=== PATIENT | female | born 1965 | race Caucasian/White ===

== ENCOUNTER → 2017-10-17 18:02 | Outpatient (REF) | payer MEDICARE, MEDICAID, SELFPAY ==
[2017-10-17 18:45] LABS: Basophils # 0.1 K/mm3 (0-0.2); Basophils % 0.8 % (0.1-2.0); Eosinophils # 0.2 K/mm3 (0.0-0.4); Eosinophils % 2.6 % (0.1-12.0); Hematocrit 42.1 % (37.0-47.0); Hemoglobin 13.4 g/dL (12.2-16.2); Lymphocytes # 2.4 K/mm3 (0.7-4.5); Lymphocytes % 28.3 K/mm3 (10-50); Mean Corpuscular HGB Conc 31.9 g/dL (31.8-35.4); Mean Corpuscular Hemoglobin 30.1 pg (27.0-31.2); Mean Corpuscular Volume 94.2 fl (81-99); Mean Platelet Volume 7.6 fl (7.4-10.4); Monocytes # 0.5 K/mm3 (0.1-1.0); Monocytes % 5.5 % (1.7-9.3); Neutrophils # 5.2 K/mm3 (1.8-7.8); Neutrophils % 62.8 % (37.0-80.0); Platelet Count 314 K/mm3 (142-424); Red Blood Count 4.47 M/mm3 (4.20-5.40); Red Cell Distribution Width 13.3 % (11.5-17.5); White Blood Count 8.3 K/mm3 (4.8-10.8)
[2017-10-17 19:08] LABS: Alanine Aminotransferase 45 U/L (12-78); Albumin Level 4.2 gm/dL (3.4-5.0); Albumin/Globulin Ratio 1.2 (1.1-1.8); Alkaline Phosphatase 106 U/L (46-116); Anion Gap 13.2 mEq/L (5-15); Aspartate Amino Transferase 21 U/L (15-37); Bilirubin,Total 0.5 mg/dL (0.2-1.0); Blood Urea Nitrogen 13 mg/dL (7-18); Calcium 9.2 mg/dL (8.5-10.1); Carbon Dioxide 27 mmol/L (21.0-32.0); Chloride 104 mmol/L (98-107); Chol/HDL Ratio 3.9 (1-3.5); Cholesterol 228 mg/dL (140-200); Creatinine,Serum 1.16 mg/dL (0.55-1.02); Estimated Glomerular Filt Rate 49 ml/min (>60); GFR (African American) 59 ML/MIN (>60); Globulin 3.4 gm/dl (1.3-3.2); Glucose 93 mg/dL (74-106); HDL Cholesterol 59 mg/dL (29-89); LDL Cholesterol 138 mg/dL (0-130); Potassium 4.2 mmoL/L (3.5-5.1); Sodium 140 mmol/L (136-145); Thyroid Stimulating Hormone 2.13 uIU/ml (0.358-3.740); Total Protein,Serum 7.6 gm/dL (6.4-8.2); Triglycerides 154 mg/dL (30-200); VLDL Cholesterol 31 mg/dL (0-40)
[2017-10-17 19:29] LABS: T4 (Thyroxine) 6.9 ug/dl (4.7-13.3)
[2017-10-19 17:10] LABS: Lithium (Eskalith(R)) 0.7 mmol/L (0.6-1.2); Vitamin B12 335 pg/mL (232-1245)
[2017-10-22 06:34] LABS: Vitamin D 25 Hydroxy 11.5 ng/mL (30.0-100.0)
== END ==
LOC: LAB 18:02
PROVIDERS: Visit Provider Nurse Practitioner Family
DX: R53.83 Other fatigue (principal); E66.9 Obesity, unspecified; F32.9 Major depressive disorder, single episode, unspecified
CPT/HCPCS: 80053; 80061; 80178; 82607; 82652; 84436; 84443; 85025

== ENCOUNTER → 2017-10-30 14:06 | Outpatient (CLI) | payer MEDICARE, MEDICAID, SELFPAY ==
--- NOTE | 2017-10-30 14:17 | XR_ITS ---
XR knee LT 4V HISTORY: ITS.REASON: knee pain ORDERING PHYSICIAN: Santa Child PATIENT AGE: 52 years COMPARISON: None FINDINGS: No fracture or dislocation. No lytic or blastic change. Normal mineralization. There are mild osteoarthritic changes involving the medial compartment and patellofemoral joint with slight decrease in the joint space and small osteophyte formation. Minimal osteoarthritic changes involve the lateral compartment. IMPRESSION: Mild osteoarthritis of the left knee
--- NOTE | 2017-10-30 14:17 | CT_ITS ---
CT head/brain wo con HISTORY: Dizziness and memory loss ORDERING PHYSICIAN: Santa Child PATIENT AGE: 52 years COMPARISON: 07/29/2008 TECHNIQUE: Axial images obtained without contrast. Brain and bone windows reviewed. FINDINGS: No midline shift, mass effect, intracranial hemorrhage, hydrocephalus, or extra-axial fluid collection is evident. The calvarium has an unremarkable appearance. No mastoid effusion. No sinus air-fluid levels.. IMPRESSION: Negative CT head without contrast. No acute finding.
== END ==
PROVIDERS: Family Provider Emergency Medicine; PCP Nurse Practitioner Family; Visit Provider Nurse Practitioner Family
DX: R42 Dizziness and giddiness (principal); M25.562 Pain in left knee
CPT/HCPCS: 70450; 73564

== ENCOUNTER 2018-02-23 07:12 | Emergency (ER) | payer MEDICARE, MEDICAID, SELFPAY ==
[2018-02-23 07:18] VITALS: BP 151/97; PULSE 95; RESP 20; TEMP 37.1; O2SAT 95; BMI 51.1
[2018-02-23 07:38] LABS: Microscopic, Urine URINE MICROSCOPIC (MICROSCOPIC)
--- NOTE | 2018-02-23 07:38 | HMH.EDABDPAI ---
ED Disposition Condition on Discharge: Fair Time of Disposition: 07:57 - Critical Care Critical Care Time: No <Myles Ro - Last Filed: 02/23/18 07:53> Condition on Discharge: Fair - Critical Care Critical Care Time: No <Dwight Sosa - Last Filed: 02/23/18 10:01> Clinical Impression: Constipation, Peptic ulcer disease, Obesity, Enteritis Abdominal pain Qualifiers: Abdominal location: right upper quadrant Qualified Code(s): R10.11 - Right upper quadrant pain Nausea and vomiting Qualifiers: Vomiting type: unspecified Vomiting Intractability: non-intractable Qualified Code(s): R11.2 - Nausea with vomiting, unspecified Disposition: Home, Self-Care Instructions: DI for Abdominal Pain-Adult Additional Instructions: 1- start medicating for PUD and and hold constipating medications for two days 2- BRAt diet and plenty of gotrate. 3- to be seen by your pcp Dr Starkey after leaving the ED for evaluating and possible GI referral for EGD. 4-to return for any new symptoms of weakness dizziness vomiting blood black stool or worse pain. Prescriptions: Ondansetron [Zofran 4mg ODT] 4 mg PO Q8HP PRN #6 tab.rapdis PRN Reason: Nausea Bisacodyl [Dulcolax 5mg Tablet] 10 mg PO BID #14 tablet. Dicyclomine HCl [Bentyl 10mg capsule] 10 mg PO Q8H #20 cap metroNIDAZOLE [Flagyl] 500 mg PO Q8 #21 tab raNITIdine HCl [Zantac] 150 mg PO BID #30 tab Referrals: Santa Child APRN [Primary Care Provider] - George Sow MD [Staff Physician] - Attestation: On 02/23/18, the high probability of a clinically significant, sudden or life threatening deterioration of the following system(s) required my full and direct attention, intervention and personal management. The time I documented below is in addition to time spent performing reported procedures but includes the following listed in this critical care notation. Medical Decision Making - Medical Records Medical records reviewed: Yes: I reviewed the patient's medical records. - Bowen Inquiry Pt receiving controlled substance: No - Lab Data Result diagrams: 02/23/18 07:25 02/23/18 07:25 - Physician Consults Physician Consulted: Dr Sosa Time: 08:01 Reason -: Admission, Pt condition Comment/Response: Care transferred to Dr. Sosa, pending results. - Reevaluation(s) Time: 07:45 <Myles Ro - Last Filed: 02/23/18 07:53> - Bowen Inquiry Pt receiving controlled substance: Yes Bowen was queried for this patient: No Risks and benefits of using a controlled substance: were not discussed with pt by me - Lab Data Result diagrams: 02/23/18 07:25 02/23/18 07:25 - Radiology Data #1 Image(s): Chest, Abdomen Image Reviewed: Yes I reviewed the patient's radiology image, Yes I discussed the image results w/the radiologist Preliminary Findings: Abnormal - US Data US Images: Abdomen ED US Reviewed: Yes: I have viewed radiologist's interpretation <Dwight Sosa - Last Filed: 02/23/18 10:01> Vital Signs: 02/23/18 07:18 Temperature 98.7 F Temperature Source Oral Pulse Rate [Left Radial] 95 H Respiratory Rate 20 Blood Pressure [Right Arm] 151/97 Blood Pressure Mean [Right Arm] 115 Blood Pressure Source [Right Arm] Automatic Cuff Blood Pressure Position [Right Arm] Sitting 02 Sat by Pulse Oximetry 95 Oxygen Delivery Method Room Air - Lab Data Lab Results 02/23/18 07:25: WBC 13.0 H, RBC 4.34, Hgb 14.1, Hct 39.3, MCV 90.5, MCH 32.5 H, MCHC 35.9 H, RDW 13.3, Plt Count 335, MPV 7.0 L, Neut % (Auto) 77.2, Lymph % (Auto) 17.3, [place] % (Auto) 3.5, Eos % (Auto) 1.6, Baso % (Auto) 0.4, Neut # (Auto) 10.0 H, Lymph # (Auto) 2.3, [place] # (Auto) 0.5, Eos # (Auto) 0.2, Baso # (Auto) 0.1 02/23/18 07:25: Sodium 138, Potassium 4.6, Chloride 104, Carbon Dioxide 25, Anion Gap 13.6, BUN 12, Creatinine 1.06 H, Estimated Creat Clear 54, Estimated GFR 54 L, Est GFR ( Amer) 66, Glucose 137 H, Calcium 9.2, Total Bilirubin 0.5, Direct Bilirubin
[2018-02-23 07:40] LABS: Basophils # 0.1 K/mm3 (0-0.2); Basophils % 0.4 % (0.1-2.0); Eosinophils # 0.2 K/mm3 (0.0-0.4); Eosinophils % 1.6 % (0.1-12.0); Hematocrit 39.3 % (37.0-47.0); Hemoglobin 14.1 g/dL (12.2-16.2); Lymphocytes # 2.3 K/mm3 (0.7-4.5); Lymphocytes % 17.3 K/mm3 (10-50); Mean Corpuscular HGB Conc 35.9 g/dL (31.8-35.4); Mean Corpuscular Hemoglobin 32.5 pg (27.0-31.2); Mean Corpuscular Volume 90.5 fl (81-99); Monocytes # 0.5 K/mm3 (0.1-1.0); Monocytes % 3.5 % (1.7-9.3); Neutrophils % 77.2 % (37.0-80.0); Platelet Count 335 K/mm3 (142-424); Red Blood Count 4.34 M/mm3 (4.20-5.40); Red Cell Distribution Width 13.3 % (11.5-17.5)
[2018-02-23 07:42] LABS: Appearance,Urine CLOUDY (Clear); Bilirubin,Urine Negative (Negative); Blood, Urine Negative (Negative); Color,Urine YELLOW (Yellow); Glucose,Urine (UA) Negative (Negative); Ketones,Urine Negative (Negative); Leukocyte Esterase,Urine Negative (Negative); Nitrate,Urine Negative (Negative); Protein,Urine Negative (Negative); Specific Gravity, Urine >= 1.030 (1.005-1.030)
[2018-02-23 07:49] LABS: Alanine Aminotransferase 29 U/L (12-78); Albumin Level 3.7 gm/dL (3.4-5.0); Albumin/Globulin Ratio 0.9 (1.1-1.8); Alkaline Phosphatase 125 U/L (46-116); Amylase 67 U/L (25-125); Anion Gap 13.6 mEq/L (5-15); Aspartate Amino Transferase 19 U/L (15-37); Bilirubin,Direct 0.1 mg/dL (0.0-0.2); Bilirubin,Indirect 0.4 mg/dL (0.0-0.9); Bilirubin,Total 0.5 mg/dL (0.2-1.0); Blood Urea Nitrogen 12 mg/dL (7-18); Calcium 9.2 mg/dL (8.5-10.1); Carbon Dioxide 25 mmol/L (21.0-32.0); Chloride 104 mmol/L (98-107); Creatinine Clearance Estimated 54 mL/min (0-300); Creatinine,Serum 1.06 mg/dL (0.55-1.02); Estimated Glomerular Filt Rate 54 ml/min (>60); GFR (African American) 66 ML/MIN (>60); Globulin 4.2 gm/dl (1.3-3.2); Glucose 137 mg/dL (74-106); Potassium 4.6 mmoL/L (3.5-5.1); Sodium 138 mmol/L (136-145); Total Protein,Serum 7.9 gm/dL (6.4-8.2)
--- NOTE | 2018-02-23 07:52 | US_ITS ---
US abdomen complete Ordering Physician: Myles Ro MD Patient Age: 52 years: Female HISTORY: ITS.REASON: Abd pain right upper quadrant pain. Previous cholecystectomy. TECHNIQUE: Ultrasound right upper quadrant COMPARISON :Plain films from today . Previous ultrasound right upper quadrant January [address] abdomen March 2017 FINDINGS difficult exam due the patient's large size Pancreas. Not well visualized technologist question of some mild fullness and slight diffuse increased echogenicity throughout the pancreas be. These features most likely reflecting fatty changes of pancreas.. However warrants correlation with amylase and lipase... Liver. Diffuse fatty changes have progressed since 2016 no focal lesion.. No ductal dilatation. Common duct was not specifically identified but is not dilated Gallbladder surgically removed Right kidney. 10.8 cm length. No hydronephrosis nor mass. IMPRESSION: Gallbladder is surgically removed Pancreas not well seen but slight generous size throughout most likely reflecting fatty change. No fluid collections or focal lesions May benefit from correlation with amylase and lipase Progressive diffuse fatty changes of liver 2015.. Hepatic steatosis. No focal lesions. No bili ductal dilatation. No ascites. Right kidney unremarkable
[2018-02-23 08:06] LABS: Lipase 125 u/L (73-393)
[2018-02-23 08:11] LABS: Bacteria,Urine 3+ /lpf; Mucus,Urine 2+ /lpf
--- NOTE | 2018-02-23 08:58 | XR_ITS ---
XR acute abdomen series Ordering Physician: Myles Ro MD Patient Age: 52 years: Female HISTORY: ITS.REASON: NV and upper abdominal pain, ct scan was broke. TECHNIQUE: Flat and upright abdomen with upright chest COMPARISON :Previous CT abdomen 03/23/2017 FINDINGS Upright Chest:. Lungs clear no active disease less than optimal inspiration with mild atelectasis likely at the medial left base.Heart normal size. Pulmonary Vascular the upper normal at chest . No pleural effusions. No free air beneath the diaphragm. Chest wall unremarkable. Flat and upright views of abdomen. There are scattered air-fluid levels throughout the right abdomen. With reviewing bowel distribution from the previous CT abdomen studies however these may reflect large bowel air-fluid levels within the right colon, hepatic flexure and proximal transverse colon. No significant large bowel dilatation. There may be a few small air-fluid levels with upper normal caliber. Upper normal wall thickness at the distal small bowel. There is solid stool seen distending the distal transverse colon to left of midline moderate stool and gas at the splenic flexure and descending colon. Minimal stool at rectum.. Minimal stool rectum. Findings a nonspecific at this point. Understand from ER Dr. symptoms have improved while in the ER. Appearance may reflect a developing enteritis with possible right colitis- and may reflect impending diarrhea... However if symptoms progress a would recommend a CT to better exclude any early obstruction at mid to distal transverse colon region. The patient has postsurgical changes at midline near the umbilicus with some scarring and thickening about the anterior abdominal wall in this region.. Note mild of scarring at the anterior abdominal wallOn prior CT Previous hysterectomy and cholecystectomy history noted. IMPRESSION: 1. Air-fluid levels are seen throughout the right colon & distal small bowel. No large bowel dilatation. Distal small bowel with borderline dilatation & borderline mild mild wall thickening. 2. In contrast there is generous stool at the left colon Generous stool transverse colon and hepatic flexure;, moderate stool & gas at descending colon.Minimal stool rectum 3. Findings may reflect developing enteritis depending diarrhea. At this point I cannot exclude a early partial bowel obstruction obstruction at mid transverse colon. If Symptoms progress follow-up CT abdomen recommended
[2018-02-23 09:17] LABS: Troponin I < 0.02 ng/ml (0.00-0.06)
[2018-02-23 10:15] VITALS: BP 158/83; PULSE 83; RESP 16; TEMP 36.9; O2SAT 95
== END 2018-02-23 10:16 | disposition home or self-care (01) ==
PROVIDERS: Emergency Medicine; Emergency Provider Emergency Medicine; Family Provider Emergency Medicine; PCP Nurse Practitioner Family
DX: R10.11 Right upper quadrant pain (principal); K27.9 Peptic ulcer, site unspecified, unspecified as acute or chronic, without hemorrhage or perforation; K59.00 Constipation, unspecified; F41.8 Other specified anxiety disorders; I10 Essential (primary) hypertension
CPT/HCPCS: 74021; 76700; 80053; 80076; 81001; 82150; 83690; 84484; 85025; 87086; 93005; 96365; 96375; 99283; J2405

== ENCOUNTER → 2018-03-23 14:05 | Outpatient (POV) | payer MEDICARE, MEDICAID, SELFPAY | PROVIDERS: Visit Provider Nurse Practitioner Acute Care | DX: Z00.00 Encounter for general adult medical examination without abnormal findings (principal) ==

== ENCOUNTER → 2018-04-03 06:24 | Outpatient (CLI) | payer MEDICARE, MEDICAID, SELFPAY ==
--- NOTE | 2018-04-03 06:27 | NM_ITS ---
History and Indications: Hyperlipidemia, chest, shortness of breath, palpitations and fatigue Procedure: Patient received a 0.4 mg of Lexiscan, resting heart rate was 73 bpm resting blood pressure 128/78, with Lexiscan maximum heart rate achieved was 99 bpm is less than 85% of the maximum] heart rate and a blood pressure 97/42. With Lexiscan patient complained of shortness of breath and nausea. Electrocardiogram: Resting electrocardiogram showed sinus rhythm, with Lexiscan there is less than 1.[address] segment depression noted from the baseline EKG. The EKG portion of the Lexiscan Myoview is nondiagnostic. Cardiac stress and resting SPECT images: Cardiac stress and rest SPECT images were obtained using technetium 99 Myoview 31.2 mCi at stress and 10.4 mCi at rest. Gated SPECT further analysis wall motion and calculation of the ejection fraction also done. Cardiac stress and rest images show a fixed defect in the inferior wall with normal contractility in the gated SPECT is likely secondary to soft tissue attenuation no reversible ischemia seen. Computer derived ejection fraction is 62% with no obvious regional wall motion abnormality, right ventricle is normal size and contractility. Conclusion: 1. The EKG portion of the Lexiscan Myoview is nondiagnostic. 2. No obvious scintigraphic evidence of reversible ischemia seen, computer derived ejection fraction is 62% with no obvious regional wall motion abnormality. Right ventricle is normal size and contractility. 3. Normal Lexiscan Myoview study.
--- NOTE | 2018-04-03 06:27 | CT_ITS ---
CT heart w calcium score INDICATION: ITS.REASON: dyspnea, DM, Obese, Chest pain, GERD ORDERING PHYSICIAN: Jose Prado MD PATIENT AGE: 52 years COMPARISON: None TECHNIQUE: Axial images are obtained without contrast. Sagittal and coronal reformatted images are reviewed as well. All CT scans at the facility use one or more dose reduction, viz: automated exposure control, ma/kV adjustment per patient size (including targeted exams where dose is matched to indication, i.e. head), or iterative reconstruction technique. FINDINGS: The coronary artery calcium score is 1 indicating minimal plaque burden and low cardiovascular disease risk IMPRESSION: Coronary artery calcium score 1 with low cardiovascular disease risk
--- NOTE | 2018-04-03 06:27 | CA_ITS ---
PROCEDURE: 2-D M-mode and color Doppler study INDICATIONS FOR THE TEST: Chest pain+ COPD Heart Murmur Tobacco Smoking Palpitations+ Fatigue+ Syncope Edema+ Hypertension Diabetes Mellitus Rheumatic Fever SOB+GIL+Obesity Hyperlipidemia+ Family History HD Additional History pre-op clearance, dizziness, MOSES, GERD, near syncope PATIENT INFORMATION HEIGHT: 64 WEIGHT: 318 GENDER: Female B/P: 136/95 2-D/M-MODE INTERPRETATION: 2-D MEASUREMENTS OBSERVED VALUES IN CMS Right Ventricular Dimension (RVDd) 2.2 Interventricular Septum (Thickness)(IVsd) 0.8 Left Ventricular Internal Dimensions(LVIDd) 5.1 Left Ventricular Posterior Wall (Thickness)(LVPWd) 0.8 Aortic Root 2.3 Aortic Cusp Separation 2.0 Left Atrial Dimensions (LAD) 3.9 2D 1. Left atrium is qualitatively mildly enlarged, left ventricle is normal size, there is preserved left ventricular systolic function, visually estimated ejection fraction 55% with no obvious regional wall motion abnormality. 2. The right atrium and right ventricle are normal size and contractility. 3. The aortic valve is minimally thickened and fibrosed. 4. The mitral and tricuspid valves are grossly normal. 5. The pulmonic valve is poorly visualized. 6. No significant pericardial effusion noted. DOPPLER INTERROGATION: Doppler interrogation of the aortic, mitral and tricuspid valve reveals presence of mild mitral and tricuspid regurgitation, tricuspid and jet velocity insufficient for calculation of the right ventricular systolic pressure, grade 1 diastolic dysfunction seen without tissue Doppler evidence of raised left atrial pressure. CONCLUSION: 1. Mildly enlarged left atrium, normal left ventricular size, visually estimated ejection fraction 55% with no obvious regional wall motion abnormality, grade 1 diastolic dysfunction seen without tissue Doppler evidence of raised left atrial pressure. 2. Mild mitral and tricuspid regurgitation 3. No significant pericardial effusion noted.
--- NOTE | 2018-04-03 09:07 | HMH.ITSHM ---
lithium buspirone linzess venlafine depacote latida atorvastatin
== END ==
PROVIDERS: Family Provider Emergency Medicine; PCP Emergency Medicine; Visit Provider Internal Medicine Cardiovascular Disease
DX: R06.09 Other forms of dyspnea (principal); R94.31 Abnormal electrocardiogram [ECG] [EKG]; E78.5 Hyperlipidemia, unspecified
CPT/HCPCS: 75571; 78452; 93017; 93306; A9502; J2785; Q9966

== ENCOUNTER → 2018-05-25 12:22 | Outpatient (POV) | payer MEDICARE, MEDICAID, SELFPAY | PROVIDERS: Family Provider Emergency Medicine; PCP Emergency Medicine; Visit Provider Nurse Practitioner Acute Care | DX: Z00.00 Encounter for general adult medical examination without abnormal findings (principal) ==

== ENCOUNTER → 2019-02-05 09:24 | Outpatient (CLI) | payer MEDICARE, MEDICAID, SELFPAY ==
[2019-02-05 10:41] LABS: Basophils # 0.1 K/mm3 (0-0.2); Basophils % 0.7 % (0.1-2.0); Eosinophils # 0.3 K/mm3 (0.0-0.4); Eosinophils % 4.6 % (0.1-12.0); Hematocrit 36.1 % (37.0-47.0); Hemoglobin 11.5 g/dL (12.2-16.2); Lymphocytes # 2.1 K/mm3 (0.7-4.5); Lymphocytes % 33.9 % (10-50); Mean Corpuscular HGB Conc 31.7 g/dL (31.8-35.4); Mean Corpuscular Hemoglobin 28.4 pg (27.0-31.2); Mean Corpuscular Volume 89.7 fl (81-99); Mean Platelet Volume 6.8 fl (7.4-10.4); Monocytes # 0.5 K/mm3 (0.1-1.0); Monocytes % 8.1 % (1.7-9.3); Neutrophils # 3.3 K/mm3 (1.8-7.8); Neutrophils % 52.6 % (37.0-80.0); Platelet Count 301 K/mm3 (142-424); Red Blood Count 4.03 M/mm3 (4.20-5.40); Red Cell Distribution Width 13.1 % (11.5-17.5); White Blood Count 6.3 K/mm3 (4.8-10.8)
[2019-02-05 12:43] LABS: Alanine Aminotransferase 32 U/L (12-78); Albumin Level 3.5 gm/dL (3.4-5.0); Albumin/Globulin Ratio 1.1 (1.1-1.8); Alkaline Phosphatase 91 U/L (46-116); Anion Gap 14.6 mEq/L (5-15); Aspartate Amino Transferase 20 U/L (15-37); Bilirubin,Total 0.4 mg/dL (0.2-1.0); Blood Urea Nitrogen 14 mg/dL (7-18); Calcium 9.2 mg/dL (8.5-10.1); Carbon Dioxide 26 mmol/L (21.0-32.0); Chloride 108 mmol/L (98-107); Chol/HDL Ratio 4.7 (1-3.5); Cholesterol 211 mg/dL (140-200); Creatinine,Serum 1.01 mg/dL (0.55-1.02); Estimated Glomerular Filt Rate 57 ml/min (>60); GFR (African American) 69 ML/MIN (>60); Globulin 3.1 gm/dl (1.3-3.2); Glucose 86 mg/dL (74-106); HDL Cholesterol 45 mg/dL (29-89); LDL Cholesterol 140 mg/dL (0-130); Potassium 4.6 mmoL/L (3.5-5.1); Sodium 144 mmol/L (136-145); T4 (Thyroxine) 4.8 ug/dl (4.7-13.3); Thyroid Stimulating Hormone 2.69 uIU/ml (0.358-3.740); Total Protein,Serum 6.6 gm/dL (6.4-8.2); Triglycerides 130 mg/dL (30-200); VLDL Cholesterol 26 mg/dL (0-40)
[2019-02-06 20:51] LABS: Vitamin D 25 Hydroxy 14.5 ng/mL (30.0-100.0)
[2019-02-09 19:54] LABS: H. pylori Breath Test Positive (Negative)
== END ==
PROVIDERS: Visit Provider Nurse Practitioner Family
DX: R23.4 Changes in skin texture (principal); E66.01 Morbid (severe) obesity due to excess calories; Z68.43 Body mass index [BMI] 50.0-59.9, adult; E66.9 Obesity, unspecified; K21.9 Gastro-esophageal reflux disease without esophagitis; L85.3 Xerosis cutis; E55.9 Vitamin D deficiency, unspecified
CPT/HCPCS: 36415; 80053; 80061; 82652; 83013; 84436; 84443; 85025

== ENCOUNTER → 2019-03-11 14:50 | Outpatient (CLI) | payer MEDICARE, MEDICAID, SELFPAY ==
--- NOTE | 2019-03-11 14:52 | MM_ITS ---
MM Dig screening mamm BI w/CAD CAD Screening COMPARISON: Digital mammograms with CAD 02/17/2017 INDICATION: There is a history of breast cancer patient's sister diagnosed at age 48 TECHNIQUE: Standard CC and MLO images were obtained. R2 CAD reviewed. FINDINGS: The breasts are composed primarily of fat with minimal scattered fiber glandular densities in each breast. There is an asymmetric density upper outer quadrant right breast which was seen previously but shows possibly slight interval increase in size. Recommend patient return for spot compression views and ultrasound for better evaluation. There is a benign-appearing calcification left breast. There are additional tiny benign-appearing nodular densities in each breast. There are no suspicious microcalcifications. IMPRESSION: Fibrofatty parenchyma with possible interval change in nodular density right breast BI-RADS Category: 0 Need Additional Imaging Evaluation RECOMMENDED FOLLOW-UP: IMM - IMMEDIATE FOLLOW-UP RECOMMENDED (A letter has been sent to the patient regarding results of the study.)
== END ==
PROVIDERS: PCP Emergency Medicine; Visit Provider Nurse Practitioner Family
DX: Z12.31 Encounter for screening mammogram for malignant neoplasm of breast (principal)
CPT/HCPCS: 77067

== ENCOUNTER → 2019-04-01 13:29 | Outpatient (CLI) | payer MEDICARE, MEDICAID, SELFPAY ==
--- NOTE | 2019-04-01 13:36 | MM_ITS ---
MM Dig mamm DX unilat RT CAD Right breast ultrasound complete with axilla INDICATION: Follow-up abnormal mammogram ORDERING PHYSICIAN: KIET Bedolla PATIENT AGE: 53 years COMPARISON: 03/11/2019, 02/17/2017, 06/03/2011 TECHNIQUE: Spot compression views and right ML view along with right breast ultrasound FINDINGS: There is a well-circumscribed oval nodule in the upper outer aspect of the right breast at approximately the 10:00 position. This measures 7 mm. The margins are well-circumscribed. This has a benign appearance. Spot compression views also demonstrate an additional benign-appearing nodule in the central aspect of the right breast that measures 5 mm. Right breast ultrasound ultrasound performed of the right breast fails to demonstrate the mammographic nodule of concern. There is a 4 mm x 5 mm subcutaneous area of increase echogenicity in the 10:00 region of the right breast. It is doubtful that this represents the area of mammographic concern. No suspicious nodules are evident. IMPRESSION: Right breast nodule at 10:00 has benign appearance. The nodule however has increased in size compared to 02/17/2017. With therefore, recommend a 6 month mammographic and sonographic follow-up. There may be a small lipoma in the 10:00 region of the right breast seen on ultrasound. BI-RADS Category: 3 Probably Benign Finding Short Term Follow-up RECOMMENDED FOLLOW-UP: 6M - 6 MONTH FOLLOW-UP (A letter has been sent to the patient regarding results of the study.)
== END ==
PROVIDERS: PCP Emergency Medicine; Visit Provider Physician Assistant
DX: R92.8 Other abnormal and inconclusive findings on diagnostic imaging of breast (principal)
CPT/HCPCS: 76641; 77065

== ENCOUNTER → 2019-09-21 12:26 | Outpatient (CLI) | payer MEDICARE, MEDICAID, SELFPAY ==
--- NOTE | 2019-09-21 12:34 | XR_ITS ---
PROCEDURE: XR FOOT WT BEARING RT 3V CLINICAL INDICATION: foot pain COMPARISON: No exams were available for comparison FINDINGS: No fracture or dislocation. No lytic or blastic change. There is normal mineralization. There is mild osteoarthritis at the 1st metatarsophalangeal joint. Degenerative dorsal posterior and plantar calcaneal spurring is noted. Other findings:None. IMPRESSION: No acute findings. Dictated by: Triston Boudreaux 09/21/2019 13:12 Electronically signed by Triston Boudreaux in [facility] 09/21/2019 13:12
--- NOTE | 2019-09-21 12:34 | XR_ITS ---
PROCEDURE: XR ANKLE WT BEARING LT MIN 3V CLINICAL INDICATION: foot pain COMPARISON: No exams were available for comparison FINDINGS: There is no acute fracture dislocation or destructive bony lesion. Ankle mortise is intact. Calcifications in the soft tissues inferior to the malleoli are likely accessory ossicles. Degenerative dorsal posterior and plantar calcaneal spurring is noted. IMPRESSION: No acute findings. Dictated by: Triston Boudreaux 09/21/2019 13:07 Electronically signed by Triston Boudreaux in [facility] 09/21/2019 13:07
--- NOTE | 2019-09-21 12:34 | XR_ITS ---
PROCEDURE: XR ANKLE WT BEARING RT MIN 3V CLINICAL INDICATION: foot pain COMPARISON: No exams were available for comparison FINDINGS: There is no acute fracture dislocation or destructive lesion. Ankle mortise is intact. Degenerative dorsal posterior and plantar calcaneal spurring is noted. IMPRESSION: No acute findings. Dictated by: Triston Boudreaux 09/21/2019 13:08 Electronically signed by Triston Boudreaux in [facility] 09/21/2019 13:08
--- NOTE | 2019-09-21 12:34 | XR_ITS ---
PROCEDURE: XR FOOT WT BEARING LT 3V CLINICAL INDICATION: foot pain COMPARISON: No exams were available for comparison FINDINGS: No fracture or dislocation. No lytic or blastic change. There is normal mineralization. There is mild osteoarthritis at the 1st metatarsophalangeal joint. Degenerative dorsal posterior and plantar calcaneal spurring is noted. There is some dorsal spurring at the Lisfranc joint. Other findings:None. IMPRESSION: No acute findings. Dictated by: Triston Boudreaux 09/21/2019 13:10 Electronically signed by Triston Boudreaux in [facility] 09/21/2019 13:10
== END ==
PROVIDERS: PCP Emergency Medicine; Visit Provider Podiatrist
DX: M79.671 Pain in right foot (principal); M79.672 Pain in left foot
CPT/HCPCS: 73610; 73630

== ENCOUNTER → 2019-11-10 13:18 | Outpatient (CLI) | payer MEDICARE, MEDICAID, SELFPAY ==
--- NOTE | 2019-11-10 13:18 | MM_ITS ---
PROCEDURE: MM DIG MAMM DX UNILAT RT CAD Digital Breast Tomosynthesis Included CLINICAL INDICATION: 6 mth f/u Six-month follow-up breast nodule COMPARISON: [facility] DIG MAMM-SCREEN LIZZ W/CAD from 02/17/2017 DIG MAMM-SCREEN LIZZ from 03/11/2019 DIG MAMM-DX UNI-RT from 04/01/2019 BREASTRT US breast RT complete from 04/01/2019 US BREAST RT COMPLETE from 11/10/2019 TECHNIQUE: Standard CC and MLO images and 3D Tomosynthesis was obtained. R2 CAD reviewed. Complete right breast ultrasound with axilla FINDINGS: There is a benign-appearing comma shaped 8 x 4 mm nodule in the outer aspect of the right breast at approximately 9 o'clock and may be slightly more prominent compared to the previous study but still has benign features. There is a 5 mm benign-appearing nodule in the central aspect of the right breast not significantly changed. Right breast ultrasound: In the 9 o'clock position there is a hypoechoic nodule measuring 8 x 4 mm with central increased echogenicity consistent with a lymph node corresponding to the mammographic abnormality. A hyperechoic nodules present at 10 o'clock at 5 x 3 mm and may be due to a lipoma IMPRESSION: Benign findings. Recommend resume screening mammogram in 6 months of both breast BI-RAD Category: 2 Benign Finding(s) FOLLOW-UP: 6M 6Month Follow-up (A letter has been sent to the patient regarding results of the study.) No malignant appearing mass or malignant-appearing microcalcification is evident. Dictated by: Martin Hidalgo MD 11/15/2019 10:59 Electronically signed by Martin Hidalgo MD in [facility] 11/15/2019 10:59
== END ==
PROVIDERS: PCP Emergency Medicine; Visit Provider Emergency Medicine
DX: R92.8 Other abnormal and inconclusive findings on diagnostic imaging of breast (principal)
CPT/HCPCS: 76641; 77061; 77065; G0279

== ENCOUNTER 2020-03-01 18:02 | Emergency (ER) | payer MEDICARE, MEDICAID, SELFPAY ==
[2020-03-01 18:02] VITALS: BP 139/63; PULSE 81; RESP 20; O2SAT 94
--- NOTE | 2020-03-01 18:02 | ECG_ITS ---
APPROVED REPORT Exam: Resting ECG HR:89 bpm ECG Measurements Heart Rate 89 AXES NM 136 P 66 QRSd 86 QRS 39 QT 368 T 63 QTc 447 <Conclusion> Normal sinus rhythm Normal ECG Electronically signed by : Mauri Andrade, 03/05/2020 14:00:56
[2020-03-01 18:03] VITALS: BP 139/63; PULSE 89; RESP 20; TEMP 36.8; O2SAT 95; BMI 51.5
--- NOTE | 2020-03-01 18:10 | XR_ITS ---
PROCEDURE: XR CHEST 2V CLINICAL HISTORY: CHEST PAIN COMPARISON: CXR CHEST(2 VIEWS-NOT PORTABLE) from 01/01/2017 CXR CHEST(2 VIEWS-NOT PORTABLE) from 03/23/2017 XR CHEST 2V from 08/11/2019 FINDINGS: The cardiomediastinal silhouette and pulmonary vascularity are within normal limits. The lungs are clear without infiltrates, suspicious nodules, or pleural effusions. No acute bony abnormalities. IMPRESSION: No acute findings. Dictated by: Martin Hidalgo MD 03/02/2020 07:45 Electronically signed by Maritn Hidalgo MD in [facility] 03/02/2020 07:45
[2020-03-01 18:16] LABS: Basophils # 0.1 K/mm3 (0-0.2); Basophils % 0.8 % (0.1-2.0); Eosinophils # 0.4 K/mm3 (0.0-0.4); Eosinophils % 3.7 % (0.1-12.0); Hematocrit 38.9 % (37.0-47.0); Hemoglobin 13.8 g/dL (12.2-16.2); Lymphocytes # 3.1 K/mm3 (0.7-4.5); Lymphocytes % 31.9 % (10-50); Mean Corpuscular HGB Conc 35.5 g/dL (31.8-35.4); Mean Corpuscular Hemoglobin 31.4 pg (27.0-31.2); Mean Corpuscular Volume 88.7 fl (81-99); Monocytes # 0.5 K/mm3 (0.1-1.0); Monocytes % 5.5 % (1.7-9.3); Neutrophils # 5.7 K/mm3 (1.8-7.8); Neutrophils % 58.1 % (37.0-80.0); Platelet Count 310 K/mm3 (142-424); Red Blood Count 4.38 M/mm3 (4.20-5.40); Red Cell Distribution Width 13.5 % (11.5-17.5); White Blood Count 9.7 K/mm3 (4.8-10.8)
[2020-03-01 18:17] LABS: Chloride 107 mmol/L (98-107); Potassium 4.3 mmoL/L (3.5-5.1); Sodium 140 mmol/L (136-145)
[2020-03-01 18:20] LABS: Blood Urea Nitrogen 16 mg/dl (7-17); Creatinine Clearance Estimated 56 mL/min (50-200); Estimated Glomerular Filt Rate 58 ml/min (>60); GFR (African American) 70 ML/MIN (>60)
[2020-03-01 18:21] LABS: Anion Gap 12.3 mEq/L (5-15); Calcium 9.7 mg/dl (8.4-10.2); Carbon Dioxide 25 mmol/L (22.0-30.0); Glucose 101 mg/dl (74-100)
[2020-03-01 18:34] LABS: Troponin I < 0.01 ng/ml (0.00-0.034)
--- NOTE | 2020-03-01 18:37 | HMH.EDCP ---
ED Disposition Clinical Impression: Atypical chest pain Disposition: Home, Self-Care Condition on Discharge: Good Instructions: DI for Atypical Chest Pain Referrals: Provider,Referral, [Primary Care Provider] - - Critical Care Critical Care Time: No Attestation: On 03/01/20, the high probability of a clinically significant, sudden or life threatening deterioration of the following system(s) required my full and direct attention, intervention and personal management. The time I documented below is in addition to time spent performing reported procedures but includes the following listed in this critical care notation. Medical Decision Making - Medical Records Medical records reviewed: Yes: I reviewed the patient's medical records. - Bowen Inquiry Pt receiving controlled substance: No Vital Signs: 03/01/20 18:02 03/01/20 18:03 Temperature 98.3 F Temperature Source Oral Pulse Rate [Right] 81 89 Respiratory Rate 20 20 Blood Pressure [Right Arm] 139/63 139/63 Blood Pressure Mean [Right Arm] 88 88 02 Sat by Pulse Oximetry 94 L 95 Oxygen Delivery Method Room Air Room Air - Lab Data Lab results reviewed: Yes: I reviewed the patient's lab results. Lab Results 03/01/20 18:05: WBC 9.7, RBC 4.38, Hgb 13.8, Hct 38.9, MCV 88.7, MCH 31.4 H, MCHC 35.5 H, RDW 13.5, Plt Count 310, MPV 7.0 L, Neut % (Auto) 58.1, Lymph % (Auto) 31.9, [place] % (Auto) 5.5, Eos % (Auto) 3.7, Baso % (Auto) 0.8, Neut # (Auto) 5.7, Lymph # (Auto) 3.1, [place] # (Auto) 0.5, Eos # (Auto) 0.4, Baso # (Auto) 0.1 03/01/20 18:05: Sodium 140, Potassium 4.3, Chloride 107, Carbon Dioxide 25, Anion Gap 12.3, BUN 16, Creatinine 1.00, Estimated Creat Clear 56, Estimated GFR 58 L, Est GFR ( Amer) 70, Glucose 101 H, Calcium 9.7, Troponin I < 0.01 Result diagrams: 03/01/20 18:05 03/01/20 18:05 Orders (Tests/Meds): ED MEDICATIONS Discontinued Medications Generic Name Dose Route Start Last Admin Trade Name Annika PRN Reason Stop Dose Admin Aspirin 324 mg 03/01/20 18:11 03/01/20 18:19 Aspirin 81mg Chewable Tablet PO 03/01/20 18:12 324 mg ONCE ONE Administration ORDERS Category Date Time Status XR chest 2V Stat Exams 03/01/20 18:10 Ordered Troponin I Q3H Lab 03/01/20 21:15 Ordered Troponin I Q3H Lab 03/02/20 00:15 Ordered - Radiology Data #1 Image(s): Chest Preliminary Findings: Normal/NAD - ECG Data Tracing #1 I reviewed this ECG and interpreted as documented below: Normal Sinus Rhythm: Yes Chest Pain HPI - General Chief Complaint: Chest Pain Stated Complaint: CHEST PAIN Time Seen by Provider: 03/01/20 18:30 Mode of Arrival: Ambulatory Source of Information: Patient Limitations: No Limitations Description of Symptoms (Recalled from ER Triage Doc. by RN): PATIENT DEVELOPED CHEST PAIN ON/OFF FOR 2 WEEKS. MID STERNAL, BUT RADIATION TO LEFT CHEST NOTED. STATES SHE HAS EPISODES OF VOMITING WITH SHORTNESS OF AIR. - History of Present Illness HPI narrative: 54-year-old female presents from her primary's office she was seen [place] today and her blood pressure was elevated and he got a 1 to come in to get evaluated. Here in the ED her blood pressure is normal patient denies any other symptoms she does not really state that she has any chest pain but given the fact that she was here blood pressure elevated she was anxious that something could be going on with her heart.Patient denies any recent cough or shortness of breath, patient denies any sore throat or headache, patient denies any loss of taste or smell, patient denies any malaise or fatigue, patient denies any abdominal pain nausea vomiting or diarrhea. - Related Data Home Medications Medication Instructions Recorded Confirmed buspirone 15 mg tablet 15 mg PO BID 10/17/17 03/01/20 lamotrigine 150 mg tablet 150 mg PO BID 10/17/17 03/01/20 quetiapine 400 mg tablet 400 mg PO ONCE 10/17/17 03/01/20 Venlafaxine HCl [Venlafaxine HCl 150
[2020-03-01 19:14] VITALS: BP 132/74; PULSE 80; RESP 16; TEMP 36.8; O2SAT 96
== END 2020-03-01 19:19 | disposition home or self-care (01) ==
PROVIDERS: Emergency Provider Family Medicine; PCP Nurse Practitioner Family
DX: R07.89 Other chest pain (principal); I10 Essential (primary) hypertension; F41.8 Other specified anxiety disorders; Z90.49 Acquired absence of other specified parts of digestive tract; Z90.79 Acquired absence of other genital organ(s)
CPT/HCPCS: 71046; 80048; 84484; 85025; 93005; 99283

== ENCOUNTER → 2020-06-02 08:23 | Outpatient (CLI) | payer MEDICARE, MEDICAID, SELFPAY ==
--- NOTE | 2020-06-02 08:23 | MM_ITS ---
PROCEDURE: MM DIG SCREENING MAMM BI W/CAD Referring Doctor: Judi Velazquez Patient Age:54Y CLINICAL INDICATION: resume screening mamm due 05/2020 No hormones no new complaints. Family history sister with breast cancer COMPARISON: MG DIGMAMMS MAMMOGRAM SCREEN-WAREHOUSE UNLOADER N/C from 07/03/2009 MG DMSB DIGITAL MAMM-SCREEN BILATERAL from 06/03/2011 MG DMDXUAVR DIG MAMM-DX UNIL ADD VIEWS-RT from 07/08/2011 MG DMSB DIG MAMM-SCREEN LIZZ W/CAD from 02/17/2017 MG DIG MAMM-SCREEN LIZZ from 03/11/2019 MG DIG MAMM-DX UNI-RT from 04/01/2019 US BREASTRT US breast RT complete from 04/01/2019 US US BREAST RT COMPLETE from 11/10/2019 MG MM DIG MAMM DX UNILAT RT CAD from 11/10/2019 TECHNIQUE: Standard CC and MLO images were obtained. R2 CAD reviewed. Bilateral digital breast tomosynthesis included. FINDINGS: Siae-gi-[id number] residual residual fibroglandular elements towards upper-outer quadrant. Moderate fatty changes most evident throughout inferior breast Right breast: No significant new findings. Follow-up in 1 year recommended Again see small 7 mm density compatible with intramammary node at the lateral right breast . ultrasound right breast from October 2019 revealed a structure at 9-10 o'clock o'clock at outer breast towards upper-outer quadrant which was compatible with a small intramammary node. It it appears similar in size today versus October 2019 but has gradually increased through the years of; however given its appearance of intramammary node on October ultrasound a can be followed safely. No additional new areas of concern on right ultrasound Left breast: No significant new findings. Follow-up 1 year recommended scattered tiny densities appear similar to previous study IMPRESSION: . No significant new findings Small areas density bilaterally are similar to previous studies and can be followed. Bilateral follow-up 1 year recommended the;-and should be encouraged and emphasized BI-RAD Category: 2 Benign Finding(s) FOLLOW-UP: 1YR 1 Year Follow-up (A letter has been sent to the patient regarding results of the study.) Dictated by: Ceasar Killian MD 06/09/2020 08:45 Ceasar Killian MD in [place] 06/09/2020 08:45
== END ==
PROVIDERS: PCP Nurse Practitioner Family; Visit Provider Nurse Practitioner Family
DX: Z12.31 Encounter for screening mammogram for malignant neoplasm of breast (principal)
CPT/HCPCS: 77063; 77067

== ENCOUNTER → 2020-06-28 18:11 | Outpatient (CLI) | payer MEDICARE, MEDICAID, SELFPAY ==
[2020-06-28 19:33] LABS: Coronavirus 19 IgG Antibody Negative (Negative); Coronavirus 19 IgM Antibody Negative (Negative)
== END ==
PROVIDERS: Visit Provider Internal Medicine Gastroenterology
DX: Z01.818 Encounter for other preprocedural examination (principal); Z13.810 Encounter for screening for upper gastrointestinal disorder; Z12.11 Encounter for screening for malignant neoplasm of colon
CPT/HCPCS: 36415; 86328

== ENCOUNTER 2020-06-30 09:29 | Day surgery (SDC) | payer MEDICARE, MEDICAID, SELFPAY ==
[2020-06-22 12:32] VITALS: BMI 51.5
[2020-06-30] VITALS (7 sets, daily range): BP systolic 130–152; BP diastolic 75–96; PULSE 62–82; RESP 18; TEMP 36.3; O2SAT 95–98
--- NOTE | 2020-06-30 10:56 | HMH.ANESCL ---
[facility] Anesthesia Checklist - Patient Identification Patient Identification: Arm Band, Verbal (Name & ) - Structural Data Admitted From: Home Planned Operative Procedure/s: EGD, Colonoscopy Consent for Planned Operative Procedure(s) Verified: Yes Verified Documents: Surgical Consent, History and Physical - NPO Status Verified Time NPO: 00:00 - Chart Verification Results Verified: None - Additional verifications Anesthesia Reactions: No - Airway Assessment C-Spine Mobility Assessed: Yes TMJ Mobility Assessed: Yes Dentition: Good Dentition - Neurological Assessment Level of Consciousness: Awake, Alert, Appropriate, Follows Commands Hx Seizures: No Numbness or tingling in extremities: No - Anesthesia Plan Anesthesia Risk discussed: Yes Anesthesia Plan: Verified ASA Class: IV Anesthesia Type: MAC [facility] History I have reviewed the patient's past medical history: Yes Medical History: Reports:: Anxiety, Depression, Gastroesophageal Reflux Disease(GERD), Hypertension Denies:: Cancer, Diabetes Mellitus Type 1, Diabetes Mellitus Type 2, Internal Pacemaker, Lung Disease, MRSA, Seizures *Have you ever received a pneumonia vaccine?: Yes *Have you received a flu vaccine this season?: No Other Medical History: Reports: Other Comment:: morbid obesity Anesthesia experience/problems:: None Laterality Cases: Left: Other Other Surgeries: Yes: Cholecystectomy, Colonoscopy, Hysterectomy-Total, Hysterectomy-Partial, Tubal Ligation, Other. No: Pacemaker Amputation: No Fractures: Yes - *Social History Last grade of school completed: GED Smoking Status: Never smoker Alcohol Intake: never Alcohol Intake Frequency:: holidays/special occasions only Substance Use Type: denies use *Occupational Status:: employed Housing: house Household Members: spouse *Travel in the last 8 weeks: None - Psychiatric History Pschychiatric History:: Reports:: Anxiety, Depression Family Hx:: Cancer
--- NOTE | 2020-06-30 11:09 | P.PCN_ITS ---
[facility] Procedure Note Procedure Note:: Upper Endoscopy Procedure Report: Esophagogastroduodenoscopy with cold biopsies and TTS balloon dilation Endoscopost: George Sow II, MD Referring Physician: Enzo Garcia MD Date of Procedure: June 30, 2020 Equipment: Olympus GIF 180 standard upper endoscope Sedation: MAC sedation Indications: Mrs. Melo is a 55-year-old female with dysphagia and some dyspepsia with epigastric abdominal pain and discomfort. She has chronic GERD with heartburn. She takes Tums daily. She reports improvement of her fullness and dysphagia over the last month but still has some early satiety, bloating, belching and globus sensation. She does have chronic constipation and recently started Linzess. She reports no melena or weight loss. Procedure: Prior to the procedure, a history and physical exam was performed, and patient's medications and allergies were reviewed. The risks, benefits and alternatives of the sedation and procedure were discussed with the patient. All questions were answered and informed consent was obtained. The patient was brought to the procedure room. Patient identification and proposed procedure were verified by the physician and the nurse. The patient was placed in a left lateral decubitus position and the scope was passed under direct vision. Throughout the proce dure, the patient's blood pressure, pulse, and oxygen saturations were monitored continuously. The upper GI endoscopy was accomplished without difficulty. The patient tolerated the procedure well. Findings: The scope was passed directly into the upper esophagus and advanced to the third portion of the duodenum. The post bulbar duodenum and duodenal bulb were normal with normal mucosa and conniventes. The scope was withdrawn through a normal duodenal bulb and pylorus into the stomach. There was moderate bile reflux with linear reactive gastropathy of the antrum and body of the stomach. There was some mosaic pattern to the body and fundus consistent with mild chronic gastritis. The remainder of the antrum, body and fundus of the stomach were grossly normal. Upon retroflexion there was a 2 to 3 cm sliding hiatal hernia. 2 biopsies were taken in the antrum and along the lesser curvature for histology to rule out gastritis and/or H pylori. The scope was then withdrawn into the esophagus. There was grade A reflux esophagitis with possible short segment Rosenbaum's esophagus. Cold biopsies were obtained distally at the GE junction. There was moderate esophageal dysmotility. The entire esophagus was dilated to 60 [place]/20 mm with a TTS hydrostatic balloon. There was some resistance at the cricopharyngeus/cricopharyngeal spasm. The remainder of the esophageal mucosa was normal. Impression: 1. Cricopharyngeal spasm status post dilation to 20 mm 2. Grade A reflux esophagitis with moderate esophageal dysmotility and small 2 to 3 cm hiatal hernia 3. Bile reflux with linear reactive gastropathy and mild chronic gastritis Plan: I will discuss the findings with the patient and family and follow-up the biopsies. I would continue PPI therapy on a maintenance basis. I would also consider a fiber bowel regimen and possibly promotility therapy. I will proceed with colonoscopy.
--- NOTE | 2020-06-30 11:38 | P.PCN_ITS ---
[facility] Procedure Note Procedure Note:: Colonoscopy Procedure Report: Colonoscopy with cold snare polypectomy Endoscopist: George Sow II, MD Referring physician: Enzo Garcia MD Date of Procedure: June 30, 2020 Equipment: Olympus 180 variable stiffness pediatric colonoscope Sedation: MAC sedation Indication: Mrs. Melo is a 55-year-old female who is here for follow-up screening/surveillance colonoscopy due to a personal history of colon polyps. The patient did have a more advanced adenomatous polyp removed in 2016 (Alfredo Donohue M.D.). She had a colonoscopy with me in June 2018 and had a transverse polyp (tubular adenoma x1) removed. The patient does report some chronic constipation. She recently started Linzess. The patient also has a strong family history of colon cancer. Her father had colon cancer at the age of 62 and her paternal grandmother had colon cancer at the age of 52. She does have some bloating. She reports no rectal bleeding or weight loss. Procedure: Prior to the procedure, a history and physical exam was performed, and patient's medications and allergies were reviewed. The risks, benefits and alternatives of the sedation and procedure were discussed with the patient. All questions were answered and informed consent was obtained. The patient was brought to the procedure room. Patient identification and proposed procedure were verified by the physician and the nurse. The patient was placed in a left lateral decubitus position and the scope was passed under direct vision. Throughout the procedure, the patient's blood pressure, pulse, and oxygen saturations were monitored continuously. The colonoscopy was accomplished without difficulty. The patient tolerated the procedure well. Findings: On digital rectal examination there was normal rectal tone. There were no external hemorrhoids. The colonoscope was introduced through the anal canal to the rectum and advanced to the cecum. The ileocecal valve and appendiceal orifice were identified. The scope was advanced a short distance into the ileum which appeared grossly normal. The scope was then withdrawn into the colon. The cecum, ascending and transverse colon and mucosa were grossly normal. There was a 4 to 5 mm polyp in the descending colon removed via cold snare polypectomy. There were scattered diverticuli throughout the descending and sigmoid colon (LEFT colon). The rectum itself was normal. Upon retroflexion within the rectum there were grade 1-2 internal hemorrhoids. The preparation was fair throughout with [place] Preparation Score of 7 out of 9. The cecal time was 13 minutes. Impression: 1. Descending colon polyp 2. Left-sided diverticulosis 3. Grade 1-2 internal hemorrhoids Plan: I will follow up the polyp pathology and recommend repeat colonoscopy again in 5 years based upon the polyp histology and the patient's family history. I would recommend continuing Linzess 290 mcg daily and adding some bulk (FiberCon).
== END 2020-06-30 12:35 | disposition home or self-care (01) ==
PROVIDERS: PCP Nurse Practitioner Family; Visit Provider Internal Medicine Gastroenterology
PROC: 0DJ08ZZ Inspection of Upper Intestinal Tract, Via Natural or Artificial Opening Endoscopic (ICD-10-PCS; CPT 43235; principal; 2020-06-30 10:30)
DX: Z12.11 Encounter for screening for malignant neoplasm of colon (principal); K63.5 Polyp of colon; K57.30 Diverticulosis of large intestine without perforation or abscess without bleeding; K64.0 First degree hemorrhoids; J39.2 Other diseases of pharynx; K22.4 Dyskinesia of esophagus; K44.9 Diaphragmatic hernia without obstruction or gangrene; K21.9 Gastro-esophageal reflux disease without esophagitis; K31.9 Disease of stomach and duodenum, unspecified; K29.30 Chronic superficial gastritis without bleeding; Z87.19 Personal history of other diseases of the digestive system; Z80.0 Family history of malignant neoplasm of digestive organs
CPT/HCPCS: 43239; 43249; 45385; 88305; C1726

== ENCOUNTER → 2021-10-01 14:51 | Outpatient (CLI) | payer MEDICARE, MEDICAID, SELFPAY ==
[2021-10-01 15:05] LABS: Basophils # 0.1 K/mm3 (0-0.2); Basophils % 0.9 % (0.1-2.0); Eosinophils # 0.5 K/mm3 (0.0-0.4); Eosinophils % 5.6 % (0.1-12.0); Hematocrit 41.8 % (37.0-47.0); Hemoglobin 13.4 g/dL (12.2-16.2); Lymphocytes # 2.4 K/mm3 (0.7-4.5); Lymphocytes % 29.6 % (10-50); Mean Corpuscular Hemoglobin 29.2 pg (27.0-31.2); Mean Corpuscular Volume 91.4 fl (81-99); Mean Platelet Volume 7.2 fl (7.4-10.4); Monocytes # 0.5 K/mm3 (0.1-1.0); Neutrophils # 4.8 K/mm3 (1.8-7.8); Neutrophils % 57.8 % (37.0-80.0); Platelet Count 371 K/mm3 (142-424); Red Blood Count 4.57 M/mm3 (4.20-5.40); Red Cell Distribution Width 13.7 % (11.5-17.5); White Blood Count 8.2 K/mm3 (4.8-10.8)
[2021-10-01 16:30] LABS: Chloride 105 mmol/L (98-107); Potassium 4.8 mmoL/L (3.5-5.1); Sodium 139 mmol/L (136-145)
[2021-10-01 16:32] LABS: Alanine Aminotransferase 21 U/L (12-78); Anion Gap 12.8 mEq/L (5-15); Aspartate Amino Transferase 27 U/L (14-36); Blood Urea Nitrogen 16 mg/dl (7-17); Carbon Dioxide 26 mmol/L (22.0-30.0); Estimated Glomerular Filt Rate 57 ml/min (>60); GFR (African American) 69 ML/MIN (>60)
[2021-10-01 16:33] LABS: Albumin Level 4.4 g/dl (3.5-5.0); Albumin/Globulin Ratio 1.5 (1.1-1.8); Alkaline Phosphatase 109 U/L (38-126); Bilirubin,Total 0.4 mg/dl (0.2-1.3); Calcium 9.2 mg/dl (8.4-10.2); Cholesterol 240 mg/dl (140-200); Glucose 85 mg/dl (74-100); HDL Cholesterol 60 mg/dl (40-60); Total Protein,Serum 7.4 g/dl (6.3-8.2); Triglycerides 142 mg/dl (30-150); VLDL Cholesterol 28 mg/dL (0-40)
[2021-10-01 16:44] LABS: Direct LDL Cholesterol 143.48 mg/dL (100-129)
[2021-10-01 16:48] LABS: T4 (Thyroxine) 6.3 ug/dl (5.53-11.0)
[2021-10-01 17:01] LABS: Thyroid Stimulating Hormone 2.04 uIU/mL (0.465-4.68)
[2021-10-04 01:26] LABS: Lithium (Eskalith(R)) 0.4 mmol/L (0.5-1.2)
== END ==
PROVIDERS: Visit Provider Nurse Practitioner Family
DX: K59.00 Constipation, unspecified (principal); R10.9 Unspecified abdominal pain; R07.89 Other chest pain; R42 Dizziness and giddiness
CPT/HCPCS: 80053; 80061; 80178; 84436; 84443; 85025

== ENCOUNTER → 2021-10-30 09:25 | Outpatient (CLI) | payer MEDICARE, MEDICAID, SELFPAY ==
--- NOTE | 2021-10-30 09:48 | CT_ITS ---
FINAL REPORT CLINICAL HISTORY: dizziness COMPARISON: 10/30/2017 FINDINGS: Axial images of the head were obtained without contrast. Coronal reformatted images were also obtained.This study was performed with techniques to keep radiation doses as low as reasonably achievable (ALARA). Individualized dose reduction techniques using automated exposure control or adjustment of mA and/or kV according to the patient's size were employed. There is no evidence of intracranial hemorrhage or mass. The ventricular size is within normal limits. There is no evidence of shift of the midline structures. No abnormal extra axial fluid collection is identified. No skull abnormality is seen on the bone window images. There are small retention cysts or polyps in the maxillary sinuses. IMPRESSION: No acute intracranial abnormality. Reviewed, Interpreted and Dictated by Akira Velez III, MD Transcribed by Estefani Molina Authenticated by Akira Velez III, MD on 10/30/2021 10:45:54 AM [facility]
[2021-10-30 13:26] LABS: Erythrocyte Sedimentation Rate 24 mm/hr (0-30)
[2021-10-30 14:37] LABS: Vitamin B12 337 pg/mL (239-931)
[2021-12-02 21:10] LABS: Antinuclear Antibodies (ANA) Negative
== END ==
PROVIDERS: Specialist; PCP Nurse Practitioner Family; Visit Provider Nurse Practitioner Family
DX: R42 Dizziness and giddiness (principal); R41.3 Other amnesia; R51.9 Headache, unspecified
CPT/HCPCS: 36415; 70450; 82607; 82746; 85651; 86038

== ENCOUNTER → 2021-10-31 12:05 | Outpatient (CLI) | payer MEDICARE, MEDICAID, SELFPAY | PROVIDERS: PCP Nurse Practitioner Family; Visit Provider Specialist | DX: G47.33 Obstructive sleep apnea (adult) (pediatric) (principal) | CPT/HCPCS: G0399 ==

== ENCOUNTER → 2022-02-01 14:07 | Outpatient (CLI) | payer MEDICARE, MEDICAID, SELFPAY ==
--- NOTE | 2022-02-01 14:15 | XR_ITS ---
FINAL REPORT CLINICAL HISTORY: knee pain FINDINGS: RIGHT KNEE Three views were obtained. There is no acute fracture or dislocation. There are moderate degenerative changes. No joint effusion is identified. No soft tissue abnormality is identified. IMPRESSION: No acute process. Reviewed, Interpreted and Dictated by Akira Velez III, MD Transcribed by Estefani Molina Authenticated and [facility]
== END ==
PROVIDERS: PCP Nurse Practitioner Family; Visit Provider Nurse Practitioner Family
DX: M25.561 Pain in right knee (principal)
CPT/HCPCS: 73562

== ENCOUNTER → 2022-05-23 16:46 | Outpatient (CLI) | payer MEDICARE, MEDICAID, SELFPAY ==
[2022-05-23 14:34] LABS: Basophils # 0.1 K/mm3 (0-0.2); Eosinophils # 0.1 K/mm3 (0.0-0.4); Eosinophils % 2.5 % (0.1-12.0); Hematocrit 40.3 % (37.0-47.0); Hemoglobin 13.5 g/dL (12.2-16.2); Lymphocytes # 1.9 K/mm3 (0.7-4.5); Lymphocytes % 36.2 % (10-50); Mean Corpuscular HGB Conc 33.4 g/dL (31.8-35.4); Mean Corpuscular Hemoglobin 30.4 pg (27.0-31.2); Mean Corpuscular Volume 91.2 fl (81-99); Mean Platelet Volume 7.9 fl (7.4-10.4); Monocytes # 0.4 K/mm3 (0.1-1.0); Monocytes % 6.6 % (1.7-9.3); Neutrophils # 2.9 K/mm3 (1.8-7.8); Neutrophils % 53.8 % (37.0-80.0); Platelet Count 346 K/mm3 (142-424); Red Blood Count 4.43 M/mm3 (4.20-5.40); Red Cell Distribution Width 14.4 % (11.5-17.5); White Blood Count 5.4 K/mm3 (4.8-10.8)
[2022-05-23 14:50] LABS: Alanine Aminotransferase 29 U/L (12-78); Albumin/Globulin Ratio 1.5 (1.1-1.8); Alkaline Phosphatase 120 U/L (38-126); Amylase 50 U/L (30-110); Anion Gap 14.6 mEq/L (5-15); Aspartate Amino Transferase 33 U/L (14-36); Bilirubin,Total 0.3 mg/dl (0.2-1.3); Blood Urea Nitrogen 15 mg/dl (7-17); Calcium 9.5 mg/dl (8.4-10.2); Carbon Dioxide 27 mmol/L (22.0-30.0); Chloride 103 mmol/L (98-107); Estimated Glomerular Filt Rate 51 ml/min (>60); GFR (African American) 62 ML/MIN (>60); Globulin 2.7 g/dL (1.3-3.2); Glucose 95 mg/dl (74-100); Lipase 95 U/L (23-300); Potassium 4.6 mmoL/L (3.5-5.1); Sodium 140 mmol/L (136-145); Total Protein,Serum 6.7 g/dl (6.3-8.2)
[2022-05-23 14:56] LABS: Hemoglobin A1C 5.1 % (4.0-6.0)
[2022-06-01 17:54] LABS: Hep A Ab, IgM Negative; Hepatitis B Core Antibody IgM Negative; Hepatitis B Surface Antigen Negative; Hepatitis C Antibody <0.1
== END ==
PROVIDERS: PCP Physician Assistant; Visit Provider Physician Assistant
DX: N39.0 Urinary tract infection, site not specified (principal); R10.9 Unspecified abdominal pain; E78.2 Mixed hyperlipidemia; R73.09 Other abnormal glucose
CPT/HCPCS: 80053; 80074; 82150; 83036; 83690; 84443; 85025; 87086

== ENCOUNTER → 2022-06-04 09:48 | Outpatient (CLI) | payer MEDICARE, MEDICAID, SELFPAY ==
--- NOTE | 2022-06-04 09:53 | MM_ITS ---
PROCEDURE INFORMATION: Exam: MG Bilateral Screening 3D Mammography Exam date and time: 06/04/2022 9:56 AM Age: 56 years old Clinical indication: Screening examination; Additional info: Breast screening. Family history of breast carcinoma. TECHNIQUE: Imaging protocol: Bilateral Screening tomosynthesis and 2D mammography including computer-aided detection (CAD) when performed. COMPARISON: 1. MG MM DIG SCREENING MAMM BI W/CAD 06/02/2020 8:29 AM 2. MG MM DIG MAMM DX UNILAT RT CAD 11/10/2019 1:21 PM 3. MG MM DIG MAMM DX UNILAT RT CAD 04/01/2019 1:52 PM FINDINGS: MAMMOGRAPHY: Breast composition: There are scattered areas of fibroglandular density. Mass: No suspicious masses. Architectural distortion: No suspicious distortion. Calcifications: No suspicious calcifications. Asymmetric density: None. Skin thickening: None. Axillary adenopathy: None. IMPRESSION: 1. No mammographic evidence of malignancy. Annual screening is recommended unless otherwise clinically indicated. 2. Given the reported risk factors for this patient, a breast cancer risk assessment may prove useful for further evaluation. ASSESSMENT: BI-RADS Category 1: Negative
== END ==
PROVIDERS: PCP Emergency Medicine; Visit Provider Nurse Practitioner Family
DX: Z12.31 Encounter for screening mammogram for malignant neoplasm of breast (principal)
CPT/HCPCS: 77063; 77067

== ENCOUNTER → 2022-06-21 12:54 | Outpatient (CLI) | payer MEDICARE, MEDICAID, SELFPAY ==
--- NOTE | 2022-06-21 13:07 | XR_ITS ---
FINAL REPORT CLINICAL HISTORY: rt knee pain FINDINGS: RIGHT KNEE: 4 views of the right knee obtained. There is no acute fracture or dislocation. The joint spaces are intact. There are moderate degenerative changes.. There is no soft tissue abnormality. IMPRESSION: No acute fracture Reviewed, Interpreted and Dictated by Akira Velez III, MD Transcribed by [place] Authenticated and [facility]
== END ==
PROVIDERS: PCP Emergency Medicine; Visit Provider Orthopaedic Surgery
DX: G89.29 Other chronic pain (principal); M25.561 Pain in right knee
CPT/HCPCS: 73564

== ENCOUNTER → 2022-10-10 13:34 | Outpatient (CLI) | payer OTHER, MEDICARE, MEDICAID, SELFPAY ==
[2022-10-10 13:44] LABS: Microscopic, Urine URINE MICROSCOPIC (MICROSCOPIC)
[2022-10-10 15:04] LABS: Basophils # 0.1 K/mm3 (0-0.2); Eosinophils # 0.3 K/mm3 (0.0-0.4); Eosinophils % 3.8 % (0.1-12.0); Hematocrit 40.3 % (37.0-47.0); Hemoglobin 13.2 g/dL (12.2-16.2); Lymphocytes # 2.7 K/mm3 (0.7-4.5); Lymphocytes % 39.1 % (10-50); Mean Corpuscular HGB Conc 32.7 g/dL (31.8-35.4); Mean Corpuscular Hemoglobin 29.5 pg (27.0-31.2); Mean Corpuscular Volume 90.3 fl (81-99); Mean Platelet Volume 8.1 fl (7.4-10.4); Monocytes # 0.5 K/mm3 (0.1-1.0); Monocytes % 7.8 % (1.7-9.3); Neutrophils # 3.3 K/mm3 (1.8-7.8); Neutrophils % 48.3 % (37.0-80.0); Platelet Count 351 K/mm3 (142-424); Red Blood Count 4.46 M/mm3 (4.20-5.40); Red Cell Distribution Width 13.6 % (11.5-17.5); White Blood Count 6.8 K/mm3 (4.8-10.8)
[2022-10-10 15:09] LABS: Appearance,Urine CLEAR (Clear); Bilirubin,Urine Negative (Negative); Blood, Urine Negative (Negative); Color,Urine YELLOW (Yellow); Glucose,Urine (UA) TRACE (Negative); Ketones,Urine Negative (Negative); Leukocyte Esterase,Urine Negative (Negative); Nitrate,Urine POSITIVE (Negative); PH,Urine 6.5 (5.0-8.5); Protein,Urine Negative (Negative); Urobilinogen,Urine >=8.0 EU/dl (0.2)
[2022-10-10 15:30] LABS: Bacteria,Urine Trace /lpf; WBC,Urine Occasional #/hpf (0-3)
[2022-10-10 15:34] LABS: Alanine Aminotransferase 20 U/L (12-78); Albumin Level 4.1 g/dl (3.5-5.0); Albumin/Globulin Ratio 1.5 (1.1-1.8); Alkaline Phosphatase 103 U/L (38-126); Anion Gap 12.4 mEq/L (5-15); Aspartate Amino Transferase 25 U/L (14-36); Bilirubin,Total 0.4 mg/dl (0.2-1.3); Blood Urea Nitrogen 21 mg/dl (7-17); Calcium 9.1 mg/dl (8.4-10.2); Carbon Dioxide 24 mmol/L (22.0-30.0); Chloride 110 mmol/L (98-107); Estimated Glomerular Filt Rate 65 ml/min (>60); GFR (African American) 78 ML/MIN (>60); Globulin 2.7 g/dL (1.3-3.2); Glucose 87 mg/dl (74-100); Potassium 4.4 mmoL/L (3.5-5.1); Sodium 142 mmol/L (136-145); Total Protein,Serum 6.8 g/dl (6.3-8.2)
== END ==
PROVIDERS: PCP Emergency Medicine; Visit Provider Orthopaedic Surgery
DX: Z01.818 Encounter for other preprocedural examination (principal)
CPT/HCPCS: 36415; 80053; 81001; 85025

== ENCOUNTER 2022-10-15 09:47 | Observation (INO) | payer OTHER, MEDICARE, MEDICAID, SELFPAY ==
--- NOTE | 2022-10-03 13:57 | SW/DCPLANNER ---
I have attempted to contact this patient regarding discharge plans after upcoming total knee replacement on 10/15/22: no answer at this time.
--- NOTE | 2022-10-11 13:36 | CARE MANAGER ---
Addendum entered by Kristina Earl 10/16/22 12:20: Nichol richardson/ [facility] stated that she can accept this patient for home health services. Patient will discharge home today. Addendum entered by Kristina Earl 10/16/22 11:30: [facility] can not meet patient needs at this time due to staffing. Patient information/order will be faxed to [facility]. Addendum entered by Kristina Earl 10/16/22 10:28: Patient information/order has been faxed to [facility]. I will follow up with [facility] once information is reviewed. Patient will discharge home today. Addendum entered by Jessica Schmitt RN 10/15/22 15:36: Spoke with patient at bedside. She will require a BSC and Rolling walker (could not find the one she had). She will also benefit from HH services. Patient choice letter signed for [facility] for DME and for [facility] or [facility] for HH services. Orders/clinical will be faxed in the AM. Original Note: Called and spoke with patient regarding her knee surgery that is scheduled on 10/15. She has a ramp into her home and has a rollator that she plans to use. She is interested in HH services and a BSC. Patient has a friend that plans to transport her. CM will follow up once patient has had surgery.
[2022-10-11 14:15] VITALS: BMI 51.0
--- NOTE | 2022-10-14 09:54 | SUR.PREOP ---
Dr. Lagunas aware of abnormal UA, no new orders.
[2022-10-15] VITALS (19 sets, daily range): BP systolic 112–166; BP diastolic 56–81; PULSE 73–105; RESP 16–22; TEMP 36.4–43; O2SAT 91–97; BMI 50.4
--- NOTE | 2022-10-15 07:03 | EXP.ANES.CKL ---
[facility] Disclaimer: The information contained in this section may have been updated after the patient was seen, as this information can be updated by other users. Medical History Dizziness FH: total abdominal hysterectomy and bilateral salpingo-oophorectomy History of renal disease Hyperlipidemia (~10/22/17) Sleep apnea Vitamin D deficiency (~10/22/17) Surgical History (Updated 10/15/22 @ 06:38 by Racquel Mccloud RN) History of surgery Hx of cholecystectomy Family History Other Family history of cancer Social History (Updated 10/15/22 @ 06:38 by Racquel Mccloud RN) Smoking Status: Never smoker alcohol intake: never substance use type: marijuana current occupational status: unemployed Travel in the last 8 weeks: None household members: significant other housing: house caffeine: No [facility] Anesthesia Checklist Patient Identification Patient Identification: Arm Band and Other: Structural Data Admitted From: Home Planned Operative Procedure/s: Right Total Knee Replacement Consent for Planned Operative Procedure(s) Verified: Yes Verified Documents: Surgical Consent and History and Physical NPO Status Verified Time NPO: 00:00 Additional verifications Patient : No Anesthesia Reactions: No Hx Blood Transfusions: No Blood Transfusion Reaction: No Cephalosporin Allergy: No Previous Colonoscopy: No Airway Assessment C-Spine Mobility Assessed: Yes TMJ Mobility Assessed: Yes Dentition: Good Dentition Neurological Assessment Level of Consciousness: Awake, Alert, Appropriate and Follows Commands Hx Seizures: No Anesthesia Plan Anesthesia Risk discussed: Yes ASA Class: III Anesthesia Type: MAC w/Spinal Preoperative Comments Pre-Operative Comments: Stage III Renal Failure
[2022-10-15 07:17] LABS: Coronavirus 19, PCR Not Detected (NotDetected); Influenza A, PCR Not Detected (NotDetected); Influenza B, PCR Not Detected (NotDetected)
--- NOTE | 2022-10-15 09:51 | EXP.OP.NOTE ---
Date of procedure: 10/15/22 Pre-op Diagnosis:: Right knee osteoarthritis Post-op Diagnosis:: Right knee osteoarthritis Procedure performed:: Right total knee arthroplasty Surgeon:: Filippo Lagunas MD Conference Specialist(s):: KIET Tam K 12 PRINCIPAL:: Other Anesthesia: regional, local and spinal Estimated blood loss (mL): 5 Clinical Note:: Selam is a very pleasant 57-year-old female with activity limiting right knee pain secondary to osteoarthritis. X-rays in June revealed severe tricompartmental degenerative changes in the varus knee with complete loss of medial joint space and marginal osteophyte formation. She has failed conservative treatment measures including cortisone injection provided only temporary relief. We discussed all the risks, benefits and alternatives to right total knee arthroplasty and she agreed to proceed. Surgical consent form was signed. Operative findings:: Right knee severe tricompartmental degenerative changes in a varus knee with complete loss of medial joint space Operative note:: The patient was seen in the preoperative holding area. Right knee was marked to confirm the correct operative site. She received Ancef 2 g IV prophylactic antibiotics within 1 hour of incision time. She was seen by anesthesia. Brought back to the OR. Spinal was performed without difficulty. Bump was placed underneath the right hip. Nonsterile tourniquet applied to the right thigh. Right lower extremity prepped and draped in usual sterile fashion. Timeout performed to confirm right total knee arthroplasty on patient Selam Good. The right lower extremity was examined with an Esmarch. Tourniquet was inflated to 300 mmHg. With the knee flexed a midline incision was made with a 10 blade scalpel. Full-thickness medial and lateral flaps elevated. We then made a medial parapatellar arthrotomy. Patella was everted. Patellar fat pad and anterior femoral fat pads were excised. Marginal osteophytes removed. A medial release was performed with Bovie electrocautery. Whitesides line was marked. Z retractors were placed medially and laterally. The distal femur was then drilled in the intramedullary distal femoral cutting guide was pinned in place set at a 5 degree valgus cut for a 10 mm cut. This cut was made with the oscillating saw. The femur was then sized to a size of 5 set at 3 degrees of external rotation. The 4-in-1 cutting guide was pinned in place. Anterior and posterior cuts were made as were the chamfer cuts. We then turned our attention to the tibia. The tibia was subluxed anteriorly. PCL retractor was placed as were medial and lateral Hohmann retractors. We used the extramedullary tibial cutting guide set at a 3 degree posterior slope for the proximal tibial cut. We pinned the guide in place to remove about a centimeter of bone from the high lateral side and 5 mm from the low medial side. This cut was made with oscillating saw. Medial and lateral menisci were excised as were posterior osteophytes. Flexion-extension gaps were checked with a 9 mm block and was still a little tight in flexion and extension so we removed an additional 2 mm of bone from the tibia using the guide pinned back in place. After this additional cuts we achieved full extension and flexion with the 9 mm block with excellent alignment. The tibia was then sized to a size 4 tibial tray centered off the medial third of the tibial tubercle. The tray was pinned in place. We then impacted the tibial fins. We then placed the size 5 trial femur. We made the box cut with the reamer and punch. We then trialed with a size 5 femur, 4 tibia and 9 polyethylene. With these trial components in place we achieved full extension and flexion with excellent alignment. We then turned our attention to the patella. Patella was sized to 24 mm in thickness. We made a 9 mm proximal patellar cut with a reciprocal saw. Patellar drill holes were made for a 29 button. With the trial
--- NOTE | 2022-10-15 09:54 | EXP.ANES.I ---
[facility] Anesthesia Record Part I Anesthesia Record I Intake, IV Amount: 1,500 Estimated blood loss (mL): 50 Urine output (mL): 0 Blood Products used (#): none Blood Pressure: 127/57 SaO2: 91 Pulse Rate: 101 Respiratory Rate: 22 Temperature: 97.8 F Patient is:: Drowsy and Stable Stable to PACU at:: 09:40
--- NOTE | 2022-10-15 10:00 | XR_ITS ---
FINAL REPORT CLINICAL HISTORY: Postop TKA FINDINGS: 2 views of the right knee were obtained. There is no acute osseous abnormality. There has been right knee arthroplasty. There is no immediate complication. There are expected soft tissue changes. IMPRESSION: Post arthroplasty without evidence complication. Reviewed, Interpreted and Dictated by Katerina Stewart MD Transcribed by Saad Pennington Authenticated and . [facility]
--- NOTE | 2022-10-15 10:10 | HMH.PHAINT1 ---
Pharmacy Intervention Comments: Medication reconciliation completed using external fill history
--- NOTE | 2022-10-15 11:38 | EXP.ANES.II ---
[facility] Anesthesia Record Part II Anesthesia Record Part II Discharge Time: 10:10 Destination: Second Floor PACU nurse assessment reviewed?: Yes Patient Condition:: Good Anesthesia Complications:: None Swallowing reflex intact?: Yes Cyanosis?: No Blood Pressure: 112/78 Pulse Rate: 99 Temperature: 97.8 F Mental Status: Alert & Oriented Pain level:: 0 Nausea and/or vomitting:: None Intake, IV Amount: 0
--- NOTE | 2022-10-15 13:33 | HMH.PTEV ---
Physical Therapy Evaluation Rehab PT IP Evaluation Start: 10/15/22 10:01 Freq: ONCE Status: Active Protocol: Document 10/15/22 13:29 PHOKAMINI (Rec: 10/15/22 13:33 PHORNE [id number]) Subjective/History History History 57 yowf adm to [facility] S/P R TKA. She reports she lives with spouse, ramp to enter the home , and is generally independent with all mobility without AD. Subjective Subjective She presents this pm with c/o significant pain in the R knee post-op. Some continued numbness/tingling due to epidural as well. Rehab PT IP Eval Objective Appearance Patient Behavior Appropriate Patient Orientation Person,Place,Time Difficulty following instructions none Speech Pattern Clear Ambulation Patient Able to Ambulate No Balance Ability to Arise Able, uses arms to help Sitting Balance Steady, safe Dynamic Sitting Balance Ability Good Transfers Bed Transfer Ability Minimal x 1 (25% assist) Rehab PT IP prob,goals,plan Problems Date of Evaluation: 10/15/22 PT IP Problems Bed Mobility,Transfers,Gait Rehab Potential Rehab Potential Good Equipment Needs Assistive Devices Rolling / Wheeled Walker Plan PT Intervention Plan Bed Mobility,Transfers,Gait, Therapeutic Exercise PT Plan Frequency BID Duration LOS Discharge Goals Bed Transfer Ability Contact Guard/Hand Hold Sit to Stand Chair Transfer Ability Minimal x 1 (25% assist) Ambulation Assistive Device Rolling Walker Ambulation Distance (feet) 20 Discharge Plan PT Discharge Plan Pt is currently appropriate to return home once medically stable for d/c. G -code Required No Eval Complexity Eval Charge Codes 29575 - Moderate Complexity PHYSICIAN CERTIFICATION: I certify the specified therapy services for Selam Good are required, authorized, and reviewed every 30 days.
--- NOTE | 2022-10-15 13:41 | HMH.OTEV ---
OT Inpatient Evaluation Rehab OT IP Evaluation Start: 10/15/22 10:01 Freq: ONCE Status: Active Protocol: Document 10/15/22 13:30 RMARSFREEPORT (Rec: 10/15/22 13:[id number] Rehab OT IP Assessment Subjective History Pt was seen resting in bed upon arrivial. Pt was oriented x3 person, place, and . Pt was agreeable to engage in therapy evaluation. Pt was admitted to [facility] on 10/15/22 following a R TKA. Pt reports that she was independent in all ADLs and IADLs. She reports that she was still able to drive. Pt reports that she lives with her . Pt reports that she used a cane to engage in functional mobility tasks around the house prior to surgery. Pt was left resting in bed with call galdamez and all other needs within reach. Subjective It just hurts so bad. Objective Patient Orientation Person,Place,Birthday Upper Extremity Gross ROM WNL Bed Mobility bed mobility-scooting,bed mobility - supine/sit Assist Level Minimal x 2 (25% assist) Lower Body Dressing Ability Assistance X1 decrease in endurance Yes Rehab OT IP prob,goals,plan Problems Date of Evaluation: 10/15/22 OT IP Problems Bed Mobility,Transfers,Balance ,Self care,Safety Rehab Potential Rehab Potential Good Equipment Needs Assistive Devices Rolling / Wheeled Walker Plan OT intervention Plan Bed Mobility,Transfers,Balance ,Self care,Safety,Therapeutic Exercise OT Plan Frequency BID Duration LOS Discharge Goals Bed Mobility Ability Standby Assistance Sit to Stand Chair Transfer Ability Contact Guard/Hand Hold Chair Transfer Ability Minimal x 1 (25% assist) Chair Transfer Technique Sit to/from Ambulatory Chair Transfer Assistive Devices Rolling Walker Feeding Ability Assist with Tray Set Up Lower Body Dressing Ability Standby Assistance Upper Body Dressing Ability Independent Bathing Ability Standby Assistance Performing Toilet Hygiene Ability Standby Assistance Overall Commode/Toilet Transfer Ability Standby Assistance Commo
--- NOTE | 2022-10-15 14:00 | EXP.HP ---
History of Present Illness *Admission Date: 10/15/22 *Reason for visit:: Chief complaint: Right knee osteoarthritis *History of present illness: This is a 57-year-old female that is admitted to the medical floor post right total knee arthroplasty after failed conservative therapy as outpatient including corticosteroid injections. Imaging identified the patient's concerns. She reports adequate pain control and identifies no chest pain, dyspnea or confusion. Nursing staff report that she remains afebrile with stable vital signs and saturating appropriately on room air. Her postoperative knee x-ray identifies no evidence of complication. She reports that she is on several anxiety medicines and is requesting to have them restarted. She discontinued her lithium several weeks ago for concerns on renal function. Her October 10 creatinine is normal at 0.9. [facility] Medical History (Updated 10/16/22 @ 08:35 by Mendel Monteiro MD) Bipolar disorder GERD (gastroesophageal reflux disease) Hyperlipidemia (~10/22/17) Morbid obesity with BMI of 50.0-59.9, adult Osteoarthritis of right knee Sleep apnea Vitamin D deficiency (~10/22/17) Surgical History (Updated 10/15/22 @ 14:25 by Mendel Monteiro MD) History of colonoscopy History of esophagogastroduodenoscopy History of hysterectomy History of surgery Hx of cholecystectomy Family History Other Family history of cancer Social History Smoking Status: Never smoker alcohol intake: never substance use type: marijuana current occupational status: unemployed Travel in the last 8 weeks: None household members: significant other housing: house caffeine: No Review of Systems Review of Systems Review of systems:: pertinent systems reviewed and negative unless documented below Meds Home Medications and Allergies Home Medications Medication Instructions Recorded Confirmed Type buspirone 15 mg tablet 30 mg PO BID Anxiety 06/08/20 10/15/22 History lamotrigine 150 mg tablet 150 mg PO TID mood 06/08/20 10/15/22 History venlafaxine 100 mg tablet 100 mg PO TID Depression 06/08/20 10/15/22 History quetiapine 400 mg tablet 800 mg PO HS sleep 10/30/21 10/15/22 History mupirocin 2 % topical ointment 1 applic topical TID infection 10/15/22 10/15/22 History oxycodone 5 mg tablet 5 mg PO Q4H PRN pain #30 tabs 10/15/22 10/15/22 Rx New Prescriptions to Start Prescriptions: Allergies Allergy/AdvReac Type Severity Reaction Status Date / Time ibuprofen [IBUPROFEN] Allergy Mild I-RASH/ITCH Verified 10/15/22 06:22 ING Exam Data for Last 24 hours Vital signs and Labs for Last 24 Hours: Temp Pulse Resp BP Pulse Ox 98.4 F 94 H 17 114/67 99 10/16/22 07:19 10/16/22 07:19 10/16/22 07:19 10/16/22 07:19 10/16/22 07:19 Laboratory Results - last 24 hr 10/16/22 06:30: WBC 9.1, RBC 3.80 L, Hgb 11.7 L, Hct 34.1 L, MCV 89.6, MCH 30.7, MCHC 34.2, RDW 13.6, Plt Count 265, MPV 7.4, Neut % (Auto) 76.4, Lymph % (Auto) 13.6, [place] % (Auto) 6.6, Eos % (Auto) 2.8, Baso % (Auto) 0.5, Neut # (Auto) 7.0, Lymph # (Auto) 1.3, [place] # (Auto) 0.6, Eos # (Auto) 0.3, Baso # (Auto) 0.1 10/16/22 06:30: Sodium 138, Potassium 3.9, Chloride 109 H, Carbon Dioxide 24, Anion Gap 8.9, BUN 14, Creatinine 0.90, Estimated Creat Clear 60, Estimated GFR 65, Est GFR ( Amer) 78, Glucose 115 H, Calcium 8.2 L I & O for Last 24 hours: Intake & Output 10/13/22 10/14/22 10/15/22 10/16/22 23:59 23:59 23:59 23:59 Intake Total 2460 / 2460 2809 / 2809 Output Total 650 / 650 201 / 201 Balance 1810 / 1810 2608 / 2608 Weight 133.356 kg 133.356 kg Constitutional Constitutional: no acute distress, morbidly obese and cooperative *Routine HEENT Exam Head: Present normocephalic Eye: Present EOMI and PERRL ENT: Present mucous membranes moist *Routine Neck Exam Neck: Present supple; Absen
--- NOTE | 2022-10-15 14:08 | EXP.MED.CON ---
History of Present Illness *Admission Date: 10/15/22 *Reason for visit:: Chief complaint: Right total knee arthroplasty *History of present illness: Thank you Dr. Lagunas for the consult on this pleasant patient. This is a 57-year-old female that is admitted to the medical floor post right total knee arthroplasty after failed conservative therapy as outpatient including corticosteroid injections. Imaging identified the patient's concerns. She reports adequate pain control and identifies no chest pain, dyspnea or confusion. Nursing staff report that she remains afebrile with stable vital signs and saturating appropriately on room air. Her postoperative knee x-ray identifies no evidence of complication. She reports that she is on several anxiety medicines and is requesting to have them restarted. She discontinued her lithium several weeks ago for concerns on renal function. Her October 10 creatinine is normal at 0.9. [facility] Medical History (Updated 10/15/22 @ 14:28 by Mendel Monteiro MD) Bipolar disorder GERD (gastroesophageal reflux disease) Hyperlipidemia (~10/22/17) Morbid obesity with BMI of 50.0-59.9, adult Sleep apnea Vitamin D deficiency (~10/22/17) Surgical History (Updated 10/15/22 @ 14:25 by Mendel Monteiro MD) History of colonoscopy History of esophagogastroduodenoscopy History of hysterectomy History of surgery Hx of cholecystectomy Family History Other Family history of cancer Social History Smoking Status: Never smoker alcohol intake: never substance use type: marijuana current occupational status: unemployed Travel in the last 8 weeks: None household members: significant other housing: house caffeine: No Review of Systems Review of Systems Review of systems:: pertinent systems reviewed and negative unless documented below Exam Data for Last 24 hours Vital signs and Labs for Last 24 Hours: Temp Pulse Resp BP Pulse Ox 98.3 F 84 16 129/71 97 10/15/22 13:15 10/15/22 13:15 10/15/22 13:15 10/15/22 13:15 10/15/22 13:15 Laboratory Results - last 24 hr 10/15/22 07:15: SARS-CoV-2 (PCR) Not detected, Influenza A Untype (PCR) Not detected, Influenza Type B (PCR) Not detected I & O for Last 24 hours: Intake & Output 10/12/22 10/13/22 10/14/22 10/15/22 23:59 23:59 23:59 23:59 Intake Total 1979 Balance 1979 Weight 133.356 kg Meds Home Medications and Allergies Home Medications Medication Instructions Recorded Confirmed Type buspirone 15 mg tablet 30 mg PO BID Anxiety 06/08/20 10/15/22 History lamotrigine 150 mg tablet 150 mg PO TID mood 06/08/20 10/15/22 History venlafaxine 100 mg tablet 100 mg PO TID Depression 06/08/20 10/15/22 History lithium carbonate 600 mg capsule 600 mg PO DAILY mood 10/30/21 10/15/22 History quetiapine 400 mg tablet 800 mg PO HS sleep 10/30/21 10/15/22 History lithium carbonate 300 mg 300 mg PO DAILY mood 10/15/22 10/15/22 History tablet,extended release mupirocin 2 % topical ointment 1 applic topical TID infection 10/15/22 10/15/22 History oxycodone 5 mg tablet 5 mg PO Q4H PRN pain #30 tabs 10/15/22 10/15/22 Rx New Prescriptions to Start Prescriptions: Allergies Allergy/AdvReac Type Severity Reaction Status Date / Time ibuprofen [IBUPROFEN] Allergy Mild I-RASH/ITCH Verified 10/15/22 06:22 ING Results Labs Labs: All other labs normal. Assessment and Plan *Assessment and plan (1) Bipolar disorder: Status: Inactive Category: Medical Code(s): F31.9 - Bipolar disorder, unspecified (2) S/P total knee arthroplasty: Status: Acute Category: Surgical Code(s): Z96.659 - Presence of unspecified artificial knee joint (3) Body mass index (BMI) greater than 50: Status: Acute Category: Medical (4) Obstructive sleep apnea: Stat
--- NOTE | 2022-10-15 19:38 | PC.NURSE ---
pt has a polar pack in place to rt knee,. c/o pain multiple times t/o shift. gave 15 mg toradol per pts request. per shilpi go ahead and give iv 2mg morphine with the iv toradol as pt was crying in severe pain. pain well managed at this time. vss. pt has no concerns. cb within reach.
[2022-10-16] VITALS: BP 141/71; PULSE 100; RESP 16; TEMP 37.2; O2SAT 93
[2022-10-16 04:00] VITALS: BP 116/77; PULSE 106; RESP 16; TEMP 37.1; O2SAT 95; BMI 50.1
--- NOTE | 2022-10-16 05:42 | PC.NURSE ---
no change from previous assessment, dressing to right knee cdi with polar pack in place, positive pedal pulses and cap refill <3 sec noted, pt rates pain 8-9/10 with greater relief from oxycodone 10mg po, torodol given x1 for breakthrough pain, vss, no acute distress.
[2022-10-16 06:47] LABS: Basophils # 0.1 K/mm3 (0-0.2); Basophils % 0.5 % (0.1-2.0); Eosinophils # 0.3 K/mm3 (0.0-0.4); Eosinophils % 2.8 % (0.1-12.0); Hematocrit 34.1 % (37.0-47.0); Hemoglobin 11.7 g/dL (12.2-16.2); Lymphocytes # 1.3 K/mm3 (0.7-4.5); Lymphocytes % 13.6 % (10-50); Mean Corpuscular HGB Conc 34.2 g/dL (31.8-35.4); Mean Corpuscular Hemoglobin 30.7 pg (27.0-31.2); Mean Corpuscular Volume 89.6 fl (81-99); Mean Platelet Volume 7.4 fl (7.4-10.4); Monocytes # 0.6 K/mm3 (0.1-1.0); Monocytes % 6.6 % (1.7-9.3); Neutrophils % 76.4 % (37.0-80.0); Platelet Count 265 K/mm3 (142-424); Red Cell Distribution Width 13.6 % (11.5-17.5); White Blood Count 9.1 K/mm3 (4.8-10.8)
[2022-10-16 06:49] LABS: Chloride 109 mmol/L (98-107); Potassium 3.9 mmoL/L (3.5-5.1); Sodium 138 mmol/L (136-145)
[2022-10-16 06:52] LABS: Anion Gap 8.9 mEq/L (5-15); Blood Urea Nitrogen 14 mg/dl (7-17); Calcium 8.2 mg/dl (8.4-10.2); Carbon Dioxide 24 mmol/L (22.0-30.0); Creatinine Clearance Estimated 60 mL/min (50-200); Estimated Glomerular Filt Rate 65 ml/min (>60); GFR (African American) 78 ML/MIN (>60); Glucose 115 mg/dl (74-100)
[2022-10-16 07:19] VITALS: BP 114/67; PULSE 94; RESP 17; TEMP 36.9; O2SAT 99
--- NOTE | 2022-10-16 08:02 | PC.NURSE ---
0801 Patient sitting up in bed, watching TV. Elio wrap noted to right knee with polar care in place and plugged in.
--- NOTE | 2022-10-16 08:45 | EXP.DC.SUM ---
General Admission date:: 10/15/22 Discharge date: 10/16/22 HPI HPI HPI: This is a 57-year-old female that is admitted to the medical floor post right total knee arthroplasty after failed conservative therapy as outpatient including corticosteroid injections. Imaging identified the patient's concerns. She reports adequate pain control and identifies no chest pain, dyspnea or confusion. Nursing staff report that she remains afebrile with stable vital signs and saturating appropriately on room air. Her postoperative knee x-ray identifies no evidence of complication. She reports that she is on several anxiety medicines and is requesting to have them restarted. She discontinued her lithium several weeks ago for concerns on renal function. Her October 10 creatinine is normal at 0.9. Hospital Course Hospital Course Hospital Course: The patient is admitted to the medical floor post operatively with routine pulse oximetry monitoring. She is provided with parenterally administered controlled substance as needed for comfort care. She is maintained on her right knee orthopedic appliance with cooling device. PT and OT are consulted for mobility assessments. Nursing staff report that she remained afebrile with stable vital signs and saturated appropriately on room air. Her morning labs identified a hemoglobin of 11.7 which is stable and normal electrolytes and creatinine 0.9. She tolerated her VTE prophylaxis with no unusual headaches, bruising or bleeding. Case management was consulted for home health care needs including PT and OT and durable medical equipment. The patient identified improvement and inquired about discharge home. 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 I spent 35 minutes in [id number] time with the patient and nursing staff concerning the discharge process. We discussed the admitting diagnoses and hospital course. We discussed identified improvement and the patient's desire to be discharged. We reviewed inpatient studies and imaging. The patient voiced understanding on the importance of follow-up with her primary care provider and specialist(s). The patient plans to be compliant with the medication regimen prescribed and follow-up appointments. She understands that she can return to the emergency department with any sudden changes or concerns. Exam Data for Last 24 hours Vital signs and Labs for Last 24 Hours: Temp Pulse Resp BP Pulse Ox 98.4 F 94 H 17 114/67 99 10/16/22 07:19 10/16/22 07:19 10/16/22 07:19 10/16/22 07:19 10/16/22 07:19 Laboratory Results - last 24 hr 10/16/22 06:30: WBC 9.1, RBC 3.80 L, Hgb 11.7 L, Hct 34.1 L, MCV 89.6, MCH 30.7, MCHC 34.2, RDW 13.6, Plt Count 265, MPV 7.4, Neut % (Auto) 76.4, Lymph % (Auto) 13.6, [place] % (Auto) 6.6, Eos % (Auto) 2.8, Baso % (Auto) 0.5, Neut # (Auto) 7.0, Lymph # (Auto) 1.3, [place] # (Auto) 0.6, Eos # (Auto) 0.3, Baso # (Auto) 0.1 10/16/22 06:30: Sodium 138, Potassium 3.9, Chloride 109 H, Carbon Dioxide 24, Anion Gap 8.9, BUN 14, Creatinine 0.90, Estimated Creat Clear 60, Estimated GFR 65, Est GFR ( Amer) 78, Glucose 115 H, Calcium 8.2 L I & O for Last 24 hours: Intake & Output 10/13/22 10/14/22 10/15/22 10/16/22 23:59 23:59 23:59 23:59 Intake Total 2460 / 2460 2809 / 2809 Output Total 650 / 650 201 / 201 Balance 1810 / 1810 2608 / 2608 Weight 133.356 kg 133.356 kg Constitutional Constitutional: no acute distress, morbidly obese and cooperative *Routine HEENT Exam Head: Present normocephalic Eye: Present EOMI and PERRL ENT: Present mucous membranes moist *Routine Neck Exam Neck: Present supple; Absent lymphadenopathy *Routine Respiratory Exam Respiratory: Present CTA bilaterally, normal respiratory effort and symmetric chest movement *Routine Cardiovascular Exam Cardiovascular: Present RRR *Routine Abdominal Exam Abdominal: Present soft and normoactive bowel sounds; Absent tenderness *Ro
--- NOTE | 2022-10-16 08:57 | HMH.PHAINT1 ---
Pharmacy Intervention Comments: Discussed discharge medications with patient. Patient verbalized understanding and had no questions at this time.
--- NOTE | 2022-10-16 10:48 | EXP.ORTH.PN ---
Subjective *Date: 10/16/22 *Time: 09:15 Interval history: Ms. Good is a 57-year-old patient who underwent an uneventful right primary total knee arthroplasty performed by Dr. Lagunas yesterday 10/15/2022. Today the patient is postop day #1. This morning she is lying comfortably in bed and her family is present at the bedside. She reports some right knee pain as to be expected but states that it has been well controlled with as needed pain medication and rest. She reports that she is eating and drinking well and denies any episodes of nausea or vomiting. She has not yet ambulated. No history of any distal tingling/numbness, fevers, chills, or rigors. She denies any other symptoms or concerns at this time Ortho Exam (Inpt) Vital signs and Labs for Last 24 Hours: Temp Pulse Resp BP Pulse Ox 98.4 F 94 H 17 114/67 99 10/16/22 07:19 10/16/22 07:19 10/16/22 07:19 10/16/22 07:19 10/16/22 07:19 Laboratory Results - last 24 hr 10/16/22 06:30: WBC 9.1, RBC 3.80 L, Hgb 11.7 L, Hct 34.1 L, MCV 89.6, MCH 30.7, MCHC 34.2, RDW 13.6, Plt Count 265, MPV 7.4, Neut % (Auto) 76.4, Lymph % (Auto) 13.6, Calloway % (Auto) 6.6, Eos % (Auto) 2.8, Baso % (Auto) 0.5, Neut # (Auto) 7.0, Lymph # (Auto) 1.3, Calloway # (Auto) 0.6, Eos # (Auto) 0.3, Baso # (Auto) 0.1 10/16/22 06:30: Sodium 138, Potassium 3.9, Chloride 109 H, Carbon Dioxide 24, Anion Gap 8.9, BUN 14, Creatinine 0.90, Estimated Creat Clear 60, Estimated GFR 65, Est GFR ( Amer) 78, Glucose 115 H, Calcium 8.2 L I & O for Labs for Last 24 Hours: Intake & Output 10/13/22 10/14/22 10/15/22 10/16/22 23:59 23:59 23:59 23:59 Intake Total 2460 / 2460 2809 / 2809 Output Total 650 / 650 426 / 426 Balance 1810 / 1810 2383 / 2383 Weight 294 lb 294 lb Head: Present normocephalic and atraumatic Eyes: Present as per HPI ENT: Present normal exam Neck: Present normal inspection, full ROM and trachea midline; Absent lymphadenopathy Respiratory: Present normal respiratory effort, able to speak in complete sentences and symmetric chest movement; Absent accessory muscle use Cardiac: Present Reg Rate and Rhythm GI: Present soft; Absent tenderness Comment:: Upon examination of the right knee: Dressings present are clean, dry, and intact. Out of the dressings, the surgical incision appears healthy and is healing well. No erythema, induration, bleeding, purulent drainage, or other signs of infection noted. There is a Dermabond Prineo skin closure system in place. Attempted movements of the right knee are somewhat painful. Thigh and calf are soft nontender; Homans' sign is negative. No clinical evidence of DVT or compartment syndrome noted. Posterior tibial pulse 1+; cap refill is brisk. Sensation light touch is grossly intact throughout. Patient is actively mobilizing the foot, ankle, and toes. Diagnostic imaging: Postoperative x-ray performed at [facility] on 10/15/2022 reviewed along with radiologist report. X-ray of the right knee demonstrates a total knee arthroplasty with orthopedic components in satisfactory alignment and fixation. No evidence of orthopedic complications noted. Radiologist report is as follows: FINDINGS: 2 views of the right knee were obtained. There is no acute osseous abnormality. There has been right knee arthroplasty. There is no immediate complication. There are expected soft tissue changes. IMPRESSION: Post arthroplasty without evidence complication. Reviewed, Interpreted and Dictated by Katerina Stewart MD Transcribed by Saad Pennington Authenticated and [facility] Skin: Present intact, warm and normal turgor; Absent cyanosis, erythema, lesions or jaundice Neuro: Present Cranial Nerve 2-12 Intact, Motor Function Intact, Sensory Function Intact, alert, awake, oriented x 3, tone normal and moves all extremities; Absent Numbness or Tingling Assessment and Plan *Assessment an
--- NOTE | 2022-10-17 11:00 | CARE MANAGER ---
Contacted patient related to hospital discharge. Patient states that she is walking and doing well. She denies any questions or concerns and is aware of her follow up appointments. SHERYL Sandoval
== END 2022-10-16 12:43 | disposition home health service (06) ==
LOC: 2ND 09:47
PROVIDERS: Orthopaedic Surgery; Admitting Provider Family Medicine; PCP Emergency Medicine; Visit Provider Family Medicine
PROC: (CPT 27447; principal; 2022-10-15 07:30)
DX: M17.11 Unilateral primary osteoarthritis, right knee (principal); F31.9 Bipolar disorder, unspecified; G47.33 Obstructive sleep apnea (adult) (pediatric); E55.9 Vitamin D deficiency, unspecified; Z79.899 Other long term (current) drug therapy
CPT/HCPCS: 27447; 36415; 73560; 80048; 85025; 96374; 97116; 97162; 97166; 97530; C1713; C1776; C9803; G0378; J2405; J3370; U0003; U0005

== ENCOUNTER → 2022-10-30 10:24 | Outpatient (CLI) | payer OTHER, MEDICARE, MEDICAID, SELFPAY ==
--- NOTE | 2022-10-30 10:39 | XR_ITS ---
FINAL REPORT CLINICAL HISTORY: s/p rt knee replacement F/U COMPARISON: 10/15/2022 FINDINGS: Three views of the right knee were obtained. Again seen are postoperative changes from right knee arthroplasty. The hardware appears intact. There is no acute fracture. There continues to be a small pleural effusion. Subcutaneous air has resolved. IMPRESSION: 1. Again seen postoperative changes from right knee arthroplasty. 2. Small pleural effusion. Reviewed, Interpreted and Dictated by Katerina Stewart MD Transcribed by Lily Huntley Authenticated and [facility]
== END ==
PROVIDERS: PCP Emergency Medicine; Visit Provider Orthopaedic Surgery
DX: M25.561 Pain in right knee (principal); Z96.651 Presence of right artificial knee joint
CPT/HCPCS: 73562

== ENCOUNTER → 2022-11-08 12:18 | Outpatient (CLI) | payer OTHER, MEDICARE, MEDICAID, SELFPAY ==
[2022-11-08 12:30] LABS: Microscopic, Urine URINE MICROSCOPIC (MICROSCOPIC)
[2022-11-08 12:52] LABS: Basophils # 0.1 K/mm3 (0-0.2); Basophils % 1.4 % (0.1-2.0); Eosinophils # 0.3 K/mm3 (0.0-0.4); Eosinophils % 6.7 % (0.1-12.0); Hematocrit 37.4 % (37.0-47.0); Hemoglobin 12.4 g/dL (12.2-16.2); Lymphocytes # 1.9 K/mm3 (0.7-4.5); Lymphocytes % 40.5 % (10-50); Mean Corpuscular HGB Conc 33.3 g/dL (31.8-35.4); Mean Corpuscular Hemoglobin 30.9 pg (27.0-31.2); Mean Platelet Volume 7.4 fl (7.4-10.4); Monocytes # 0.5 K/mm3 (0.1-1.0); Monocytes % 10.6 % (1.7-9.3); Neutrophils # 1.9 K/mm3 (1.8-7.8); Neutrophils % 40.8 % (37.0-80.0); Platelet Count 393 K/mm3 (142-424); Red Blood Count 4.03 M/mm3 (4.20-5.40); Red Cell Distribution Width 13.5 % (11.5-17.5); White Blood Count 4.6 K/mm3 (4.8-10.8)
[2022-11-08 12:55] LABS: Appearance,Urine CLEAR (Clear); Blood, Urine Negative (Negative); Color,Urine YELLOW (Yellow); Glucose,Urine (UA) Negative (Negative); Ketones,Urine TRACE (Negative); Leukocyte Esterase,Urine Negative (Negative); Nitrate,Urine Negative (Negative); Protein,Urine Negative (Negative); Specific Gravity, Urine >= 1.030 (1.005-1.030)
[2022-11-08 12:59] LABS: Bilirubin,Urine 1+ (Negative)
[2022-11-08 13:11] LABS: Bacteria,Urine Trace /lpf; RBC,Urine Occasional #/hpf (0-3); Squamous Epithelial Cell,Urine Occasional #/hpf (0-5); WBC,Urine Occasional #/hpf (0-3)
[2022-11-08 13:13] LABS: Albumin Level 4.2 g/dl (3.5-5.0); Blood Urea Nitrogen 14 mg/dl (7-17); Calcium 9.1 mg/dl (8.4-10.2); Carbon Dioxide 30 mmol/L (22.0-30.0); Estimated Glomerular Filt Rate 65 ml/min (>60); GFR (African American) 78 ML/MIN (>60); Glucose 93 mg/dl (74-100); Phosphorous 3.9 mg/dl (2.5-4.5); Potassium 4.4 mmoL/L (3.5-5.1); Sodium 141 mmol/L (136-145)
[2022-11-08 13:26] LABS: Intact Parathyroid Hormone 71.5 pg/mL (7.5-53.5)
[2022-11-08 13:31] LABS: 25-OH Vitamin D, Total 22.2 ng/mL (30-100)
[2022-11-08 15:03] LABS: Anion Gap 10.4 mEq/L (5-15); Chloride 105 mmol/L (98-107)
[2022-11-13 12:19] LABS: Creatinine,Urine Random 248 mg/dL (Not Estab.)
== END ==
PROVIDERS: PCP Emergency Medicine; Visit Provider Internal Medicine Nephrology
DX: N18.31 Chronic kidney disease, stage 3a (principal); E55.9 Vitamin D deficiency, unspecified
CPT/HCPCS: 36415; 80069; 81001; 82306; 82570; 83970; 84155; 85025

== ENCOUNTER → 2022-11-11 12:21 | Outpatient (POV) | payer OTHER, MEDICARE, MEDICAID, SELFPAY | PROVIDERS: Visit Provider Internal Medicine Nephrology | DX: Z00.00 Encounter for general adult medical examination without abnormal findings (principal) ==

== ENCOUNTER → 2022-12-04 09:55 | Outpatient (CLI) | payer OTHER, MEDICARE, MEDICAID, SELFPAY ==
--- NOTE | 2022-12-04 10:00 | XR_ITS ---
FINAL REPORT CLINICAL HISTORY: knee pain COMPARISON: 10/30/2022 FINDINGS: RIGHT KNEE 3 views of the right knee were obtained. There are postoperative changes from total joint prosthesis. There is no acute fracture or dislocation. Alignment is normal. There is soft tissue edema over the patella measuring 1.3 cm in depth. The previously seen joint effusion is not seen today. IMPRESSION: Total joint prosthesis. Soft tissue edema over the patella, 1.3 cm in depth. Reviewed, Interpreted and Dictated by Esteban Gold MD Transcribed by Lily Huntley Authenticated and [facility]
== END ==
PROVIDERS: PCP Emergency Medicine; Visit Provider Orthopaedic Surgery
DX: M25.561 Pain in right knee (principal); Z96.651 Presence of right artificial knee joint
CPT/HCPCS: 73562

== ENCOUNTER → 2023-03-21 08:17 | Outpatient (CLI) | payer OTHER, MEDICARE, SELFPAY ==
--- NOTE | 2023-03-21 08:22 | XR_ITS ---
FINAL REPORT CLINICAL HISTORY: lt knee pain COMPARISON: None FINDINGS: AP, lateral and oblique views of the left knee were obtained. There is no prior exam for comparison. There is no acute osseous abnormality of the left knee. There is tricompartmental degenerative disease. The soft tissues are normal. There is no joint effusion. IMPRESSION: Tricompartmental degenerative disease without acute osseous abnormality. Reviewed, Interpreted and Dictated by Katerina Stewart MD Transcribed by Leonor Barnett Authenticated and [facility]
--- NOTE | 2023-03-21 08:22 | XR_ITS ---
FINAL REPORT CLINICAL HISTORY: Rt knee pain COMPARISON: 12/04/2022 FINDINGS: AP, lateral and oblique views of the right knee were obtained. Again noted are changes from arthroplasty. The hardware is intact. There is no acute osseous abnormality of the right knee. The joint space is preserved. The soft tissues are normal. There may be a small joint effusion. IMPRESSION: Possible small joint effusion without acute osseous abnormality. Reviewed, Interpreted and Dictated by Katerina Stewart MD Transcribed by Leonor Barnett Authenticated and [facility]
== END ==
PROVIDERS: PCP Emergency Medicine; Visit Provider Orthopaedic Surgery
DX: M17.12 Unilateral primary osteoarthritis, left knee (principal); M25.561 Pain in right knee; Z96.651 Presence of right artificial knee joint
CPT/HCPCS: 73562

== ENCOUNTER → 2023-04-01 15:53 | Outpatient (CLI) | payer OTHER, MEDICARE, SELFPAY ==
--- NOTE | 2023-04-01 15:58 | XR_ITS ---
FINAL REPORT CLINICAL HISTORY: injured left ribs from a fall, rib pain under breast FINDINGS: 3 views of the left ribs were obtained. There are no rib fractures. There is no pleural fluid collection or pneumothorax. A single view of the chest demonstrates no acute cardiopulmonary process. IMPRESSION: Unremarkable left rib series. Reviewed, Interpreted and Dictated by Akira Velez III, MD Transcribed by Saad Pennington Authenticated and . [facility]
== END ==
PROVIDERS: PCP Emergency Medicine; Visit Provider Emergency Medicine
DX: R07.89 Other chest pain (principal); S29.9XXA Unspecified injury of thorax, initial encounter; W19.XXXA Unspecified fall, initial encounter
CPT/HCPCS: 71101

== ENCOUNTER 2023-04-02 09:09 | Emergency (ER) | payer OTHER, MEDICARE, SELFPAY ==
[2023-04-02 09:11] VITALS: BP 158/89; PULSE 82; RESP 18; TEMP 36.6; O2SAT 97; BMI 51.1
--- NOTE | 2023-04-02 09:17 | CT_ITS ---
PROCEDURE INFORMATION: Exam: CT Chest Without Contrast; Diagnostic Exam date and time: 04/02/2023 9:42 AM Age: 57 years old Clinical indication: Injury or trauma; Fall; Sprain or strain; Additional info: Concern for L rib fractures after fall TECHNIQUE: Imaging protocol: Diagnostic computed tomography of the chest without contrast. Radiation optimization: All CT scans at this facility use at least one of these dose optimization techniques: automated exposure control; mA and/or kV adjustment per patient size (includes targeted exams where dose is matched to clinical indication); or iterative reconstruction. REPORTING DATA: Count of CT and Cardiac NM exams in prior 12 months: This patient has received 0 known CTs and 0 known cardiac nuclear medicine studies in the 12 months prior to the current study. COMPARISON: CR XR RIBS LT MIN 3V W CXR1V 04/01/2023 4:01 PM FINDINGS: Thyroid: Poorly defined hypodensity in the right thyroid lobe. Lungs: Interstitial prominence, mild airspace disease, chronic granulomatous disease. Pleural spaces: Trace pleural effusions. Heart: Subtle coronary artery calcification. Lymph nodes: Calcified lymph nodes in association with chronic granulomatous disease. Vasculature: Normal caliber of the thoracic aorta. Aberrant right subclavian artery. Mediastinum: Small hiatal hernia. Upper abdomen: Fatty infiltration of the liver. Status post cholecystectomy. Splenic granulomata. Incompletely visualized 1.8 cm right renal cyst. Bones/joints: Degenerative change. No acute bony injury. Soft tissues: Unremarkable. IMPRESSION: 1. No acute post-traumatic thoracic injury. 2. Nontraumatic findings as described above. COMMENTS: Consistent with the [place] [employer]'s Incidental Findings Committee white paper (J Am Christiana Radiol 2018): Any incidental renal lesion less than 1 cm or classified as too small to characterize, or any incidental cystic renal lesion characterized as simple-appearing, is likely benign. No follow-up imaging is recommended for these lesions per consensus recommendations based on imaging criteria.
--- NOTE | 2023-04-02 09:39 | HMH.EDGENADL ---
Discharge Plan Disposition Patient Disposition: Home, Self-Care Prescriptions Prescriptions: New methocarbamol 750 mg tablet 1,500 mg PO Q8H 5 Days Qty: 30 0RF No Action hydrocodone-acetaminophen 5-325 mg tablet 1 tab PO TID Qty: 15 0RF lamotrigine 150 mg tablet 150 mg PO TID Rx Instructions: take 2 tabs po qam & 1 tab every evening buspirone 15 mg tablet 30 mg PO BID Rx Instructions: take 2 tabs po bid quetiapine 400 mg tablet 800 mg PO HS Rx Instructions: take 2 tabs po qhs venlafaxine 100 mg tablet 100 mg PO TID docusate sodium 100 mg capsule See Rx Instructions .ROUTE .COMPLEX Qty: 30 0RF Dose Instruction: TAKE ONE CAPSULE BY MOUTH ONCE A DAY Rx Instructions: TAKE ONE CAPSULE BY MOUTH ONCE A DAY losartan 25 mg tablet See Rx Instructions .ROUTE .COMPLEX Qty: 30 0RF Dose Instruction: TAKE ONE TABLET BY MOUTH ONCE A DAY Rx Instructions: TAKE ONE TABLET BY MOUTH ONCE A DAY mupirocin 2 % ointment 1 applic topical TID Eliquis 5 mg Tablet 2.5 mg PO BID Qty: 24 0RF Referrals Follow up/Referrals: Enzo Garcia MD [Primary Care Provider] - See instructions Clinical Impressions Clinical Impression: Acute chest wall pain Discharge ED Provider: Arpit Eller General Adult HPI General Chief complaint: Fall Stated complaint: AO fall 03/29, possible cracked ribs Time Seen by Provider: 04/02/23 09:13 Mode of Arrival: Ambulatory Source of Information: Patient Limitations: No Limitations Description of Symptoms (Recalled from ER Triage Doc. by RN): pt fell getting out of bathtub on friday night, complains of left rib/ side pain, sent by pcp office for ct scan, recent xrays unremarkable. pt is stable and alox4 History of Present Illness HPI narrative: This is a 57-year-old female with history of hypertension, hyperlipidemia presenting with left rib pain. Patient states that almost a week ago, she was washing her dog, slipped over the tub with her hand and injured her left ribs. Has had crescendo pain since that time. Pain is worse with deep breaths, and laying on that side. Nothing particular is made it better. Saw her primary care provider and rib series was negative. Because she continues to have pain, was sent to the ER for further evaluation. Related Data Home Medications Medication Instructions Recorded Confirmed buspirone 15 mg tablet 30 mg PO BID Anxiety 06/08/20 04/01/23 lamotrigine 150 mg tablet 150 mg PO TID mood 06/08/20 04/01/23 venlafaxine 100 mg tablet 100 mg PO TID Depression 06/08/20 04/01/23 quetiapine 400 mg tablet 800 mg PO HS sleep 10/30/21 04/01/23 mupirocin 2 % topical ointment 1 applic topical TID infection 10/15/22 04/01/23 Previous Rx's Medication Instructions Recorded apixaban 5 mg tablet (Eliquis) 2.5 mg PO BID #24 tabs 10/16/22 docusate sodium 100 mg capsule See Rx Instructions .Route 12/03/22 .COMPLEX #30 caps losartan 25 mg tablet See Rx Instructions .Route 03/03/23 .COMPLEX #30 tabs hydrocodone 5 mg-acetaminophen 325 1 tab PO TID #15 tabs 04/01/23 mg tablet methocarbamol 750 mg tablet 1,500 mg PO Q8H 5 days #30 tabs 04/02/23 Allergies Allergy/AdvReac Type Severity Reaction Status Date / Time ibuprofen [IBUPROFEN] Allergy Mild I-RASH/ITCH Verified 03/21/23 09:12 [facility] Disclaimer: The information contained in this section may have been updated after the patient was seen, as this information can be updated by other users. Medical History Bipolar disorder GERD (gastroesophageal reflux disease) Hyperlipidemia (~10/22/17) Osteoarthritis of right knee Sleep apnea Surgical History History of colonoscopy History of esophagogastroduodenoscopy History of hysterectomy History of surgery TUMOR REMOVED FROM ABDOMEN Hx of cholecystect
--- NOTE | 2023-04-02 10:14 | PC.NURSE ---
Rounded on patient; call galdamez within reach. no needs at this time.
[2023-04-02 10:41] VITALS: BP 126/91; PULSE 74; RESP 16; TEMP 36.6
== END 2023-04-02 10:43 | disposition home or self-care (01) ==
PROVIDERS: Emergency Provider Emergency Medicine; PCP Emergency Medicine
DX: R07.81 Pleurodynia (principal); I10 Essential (primary) hypertension; E78.5 Hyperlipidemia, unspecified; W18.2XXA Fall in (into) shower or empty bathtub, initial encounter; F31.9 Bipolar disorder, unspecified; K21.9 Gastro-esophageal reflux disease without esophagitis; G47.30 Sleep apnea, unspecified
CPT/HCPCS: 71250; 99284

== ENCOUNTER 2023-07-01 09:25 | Day surgery (SDC) | payer OTHER, MEDICARE, SELFPAY ==
[2023-07-01 09:39] VITALS: BP 135/93; PULSE 92; RESP 18; TEMP 36.9; O2SAT 98; BMI 50.4
--- NOTE | 2023-07-01 09:48 | P.PCN_ITS ---
Procedure: Date: 07/01/23 Patient Date of :: 1965 Procedure Performed:: Colonoscopy Indications:: History of colon polyps Her most recent colonoscopy in June [address] George Sow revealed left-si ded polyps, diverticulosis, and hemorrhoids. Colonoscopy 2 years prior revealed a transverse colon polyp, diverticulosis, and hemorrhoids. Bowel preparation was somewhat limited. Performing Provider:: Alfredo Donohue MD Referring Provider:: . Sedation:: Monitored anesthesia care Procedure:: After informed consent was obtained the patient was taken to the endoscopy suite. Sedation ensued after the patient was transferred to the left lateral decubitus position. Pulse, blood pressure, and oxygen saturation were monitored throughout the procedure. Digital rectal exam revealed no significant ab normality. The colonoscope was placed in position. The entire colon was evaluated. The colonoscope was carefully removed and the patient was transferred to recovery in stable condition. Please see findings and specimens below for detail. Findings:: Bowel preparation moderate to poor Profound lack of relaxation Moderate tortuosity Hemorrhoidal cushions Scattered diverticulosis Specimens:: None Recommendations:: Continued fairly short-term repeat evaluation warranted. Repeat colonoscopy in 2-3 years with extended bowel preparation secondary to limited preparation on multiple occasions, profound lack of relaxation, and tortuosity. Complications:: No immediate with the exception of moderate to poor bowel preparation. Estimated blood obtained (mL): 0 Colonoscopy Component Colonoscopy Component Was a colonoscopy performed during today's procedure?: Yes Recommended follow up colonoscopy of at least 10 years?: No If no, follow up colonoscopy recommended in ___ years?: (See above) Reason for not recommending >/= 10 yr follow-up interval?: (See above)
--- NOTE | 2023-07-01 09:50 | EXP.ANES.CKL ---
[facility] Disclaimer: The information contained in this section may have been updated after the patient was seen, as this information can be updated by other users. Medical History Bipolar disorder GERD (gastroesophageal reflux disease) Hyperlipidemia (~10/22/17) Osteoarthritis of right knee Sleep apnea Surgical History History of colonoscopy History of esophagogastroduodenoscopy History of hysterectomy History of surgery TUMOR REMOVED FROM ABDOMEN Hx of cholecystectomy Family History Other Family history of cancer Social History (Updated 07/01/23 @ 09:37 by Juaquin Choudhury RN) Smoking Status: Never smoker alcohol intake: never substance use type: marijuana current occupational status: unemployed Travel in the last 8 weeks: None household members: significant other housing: house caffeine: No [facility] Anesthesia Checklist Patient Identification Patient Identification: Arm Band Structural Data Admitted From: Home Planned Operative Procedure/s: colonoscopy Consent for Planned Operative Procedure(s) Verified: Yes Verified Documents: Surgical Consent and History and Physical NPO Status Verified Time NPO: 00:00 Additional verifications Anesthesia Reactions: No Hx Blood Transfusions: No Blood Transfusion Reaction: No Airway Assessment Mallampati Score:: Class II C-Spine Mobility Assessed: Yes TMJ Mobility Assessed: Yes Dentition: Good Dentition Neurological Assessment Level of Consciousness: Awake and Alert Anesthesia Plan Anesthesia Risk discussed: Yes Anesthesia Plan: Verified ASA Class: III Anesthesia Type: MAC
[2023-07-01 09:56] VITALS: O2SAT 94
[2023-07-01 10:24] VITALS: BP 105/60; PULSE 77; RESP 24; TEMP 36.1; O2SAT 93
[2023-07-01 10:34] VITALS: BP 104/74; PULSE 84; RESP 19; O2SAT 98
[2023-07-01 10:44] VITALS: BP 117/65; PULSE 76; RESP 19; TEMP 36.8; O2SAT 98
== END 2023-07-01 10:44 | disposition home or self-care (01) ==
PROVIDERS: Surgery; PCP Emergency Medicine; Visit Provider Surgery
PROC: 0DJD8ZZ Inspection of Lower Intestinal Tract, Via Natural or Artificial Opening Endoscopic (ICD-10-PCS; principal; 2023-07-01 10:30)
DX: Z12.11 Encounter for screening for malignant neoplasm of colon (principal); Z86.010 Personal history of colon polyps; K57.30 Diverticulosis of large intestine without perforation or abscess without bleeding
CPT/HCPCS: 45378; J2704

== ENCOUNTER → 2023-07-09 14:00 | Outpatient (CLI) | payer OTHER, MEDICARE, SELFPAY ==
[2023-07-09 14:29] LABS: Basophils # 0.1 K/mm3 (0-0.2); Basophils % 0.8 % (0.1-2.0); Eosinophils # 0.1 K/mm3 (0.0-0.4); Eosinophils % 1.8 % (0.1-12.0); Hematocrit 39.7 % (37.0-47.0); Hemoglobin 13.9 g/dL (12.2-16.2); Lymphocytes # 2.3 K/mm3 (0.7-4.5); Lymphocytes % 29.9 % (10-50); Mean Corpuscular HGB Conc 34.9 g/dL (31.8-35.4); Mean Corpuscular Hemoglobin 31.6 pg (27.0-31.2); Mean Corpuscular Volume 90.3 fl (81-99); Mean Platelet Volume 7.1 fl (7.4-10.4); Monocytes # 0.4 K/mm3 (0.1-1.0); Monocytes % 5.4 % (1.7-9.3); Neutrophils # 4.7 K/mm3 (1.8-7.8); Neutrophils % 62.1 % (37.0-80.0); Platelet Count 314 K/mm3 (142-424); Red Blood Count 4.39 M/mm3 (4.20-5.40); Red Cell Distribution Width 13.6 % (11.5-17.5); White Blood Count 7.5 K/mm3 (4.8-10.8)
[2023-07-09 15:04] LABS: Chloride 106 mmol/L (98-107); Potassium 4.9 mmoL/L (3.5-5.1); Sodium 139 mmol/L (136-145)
[2023-07-09 15:06] LABS: Blood Urea Nitrogen 16 mg/dl (7-17); Estimated Glomerular Filt Rate 57 ml/min (>60); GFR (African American) 69 ML/MIN (>60)
[2023-07-09 15:07] LABS: Alanine Aminotransferase 25 U/L (12-78); Albumin Level 4.5 g/dl (3.5-5.0); Alkaline Phosphatase 120 U/L (38-126); Anion Gap 12.9 mEq/L (5-15); Aspartate Amino Transferase 31 U/L (14-36); Bilirubin,Direct 0.3 mg/dl (0.0-0.4); Bilirubin,Indirect 0.2 mg/dL (0.0-0.9); Bilirubin,Total 0.5 mg/dl (0.2-1.3); Bilirubin,Unconjugated 0.2 mg/dL (0.0-1.1); Calcium 9.5 mg/dl (8.4-10.2); Carbon Dioxide 25 mmol/L (22.0-30.0); Cholesterol 221 mg/dl (140-200); Glucose 105 mg/dl (74-100); Total Protein,Serum 7.5 g/dl (6.3-8.2); Triglycerides 105 mg/dl (30-150); VLDL Cholesterol 21 mg/dL (0-40)
[2023-07-09 15:08] LABS: Chol/HDL Ratio 3.6 (1-3.5); HDL Cholesterol 62 mg/dl (40-60)
[2023-07-09 15:19] LABS: Direct LDL Cholesterol 123.23 mg/dL (100-129)
[2023-07-09 15:26] LABS: Free T4 (Free Thyroxine) 1.31 ng/dl (0.78-2.19)
[2023-07-09 15:38] LABS: Thyroid Stimulating Hormone 0.85 uIU/mL (0.465-4.68)
== END ==
LOC: LAB 14:01
PROVIDERS: PCP Emergency Medicine; Visit Provider Internal Medicine
DX: E78.5 Hyperlipidemia, unspecified (principal); R06.00 Dyspnea, unspecified; R07.89 Other chest pain
CPT/HCPCS: 36415; 80048; 80061; 80076; 84439; 84443; 85025

== ENCOUNTER → 2023-07-23 10:36 | Outpatient (CLI) | payer OTHER, MEDICARE, SELFPAY ==
--- NOTE | 2023-07-23 10:36 | MM_ITS ---
PROCEDURE INFORMATION: Exam: MG Bilateral Screening 3D Mammography Exam date and time: 07/23/2023 10:46 AM Age: 58 years old Clinical indication: Screening examination; Additional info: Screening mammogram . Family history of sister with breast carcinoma. TECHNIQUE: Imaging protocol: Bilateral Screening tomosynthesis and 2D mammography including computer-aided detection (CAD) when performed. COMPARISON: 1. MG MM DIG SCREENING MAMM BI W/CAD 06/04/2022 9:56 AM 2. MG MM DIG SCREENING MAMM BI W/CAD 06/02/2020 8:29 AM 3. MG MM DIG MAMM DX UNILAT RT CAD 11/10/2019 1:21 PM FINDINGS: MAMMOGRAPHY: Breast composition: There are scattered areas of fibroglandular density. Mass: No suspicious masses. Architectural distortion: No suspicious distortion. Calcifications: No suspicious calcifications. Asymmetric density: None. Skin thickening: None. Axillary adenopathy: None. IMPRESSION: 1. No mammographic evidence of malignancy. Annual screening is recommended unless otherwise clinically indicated. 2. Given the reported risk factors for this patient, a breast cancer risk assessment may prove useful for further evaluation. ASSESSMENT: BI-RADS Category 1: Negative
== END ==
PROVIDERS: PCP Emergency Medicine; Visit Provider Emergency Medicine
DX: Z12.31 Encounter for screening mammogram for malignant neoplasm of breast (principal)
CPT/HCPCS: 77063; 77067

== ENCOUNTER 2023-08-06 11:37 | Outpatient (CLI) | payer OTHER, MEDICARE, SELFPAY ==
--- NOTE | 2023-08-06 11:39 | CT_ITS ---
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 A noncontrast coronary calcium scan was performed. A CT attenuation threshold of 130 Hounsfield units (HU) was used for the detection of calcium in contiguous voxels of 1 sq mm in area to be counted as individual lesions. Bolus tracking in the ascending aorta with a threshold of 180 HU was performed. Immediately afterwards, ECG synchronized cardiac CT was then performed from the cardiac base to apex using retrospective gating with ECG tube current modulation. A total of 85 mL of Isovue 370 mg/mL contrast medium was administered at 5 mL/sec followed by a saline flush using a biphasic injection protocol. A tube voltage of 120 KVp was used. The patient received the following medications prior to the cardiac CT. 100 mg of oral metoprolol 5 mg of intravenous metoprolol 0.8 mg of sublingual nitroglycerin The average heart rate at the time of acquisition was 63 bpm. Irregular rhythm was detected during the acquisition of the study images. Image Reconstruction Transaxial images were reconstructed at 0.67 mm slide thickness. Data was reviewed interactively on an advanced workstation capable of 2 and 3-dimensional displays in all conventional reconstruction formats, including multiplanar reformations, maximum intensity projections, curved multiplanar reformations, and volume rendered reconstructions. When applicable, selected routine images describing the relevant coronary anatomy and pathology were saved and sent to PACS. Complications None Technical Quality Overall image quality was suboptimal. Coronary artery opacification was fair. Total DLP (Dose-Length Product) is 1474.3 mGy-cm. The reported value represents the total of one or more individual components during the CT acquisition of this date and at this time, and as such, the same value may appear in more than one CT report depending on the interpreting/reporting physicians. COMPARISON None FINDINGS CT Coronary Calcium Scoring LMA (Left Main Artery) = 0 LAD (Left Anterior Descending) = 18 LCX (Left Coronary Circumflex) = 0 RCA (Right Coronary Artery) = 2 Total Calcium Score = 20 using the AJ-130 method. The observed calcium score of 20 is at 80th percentile for subjects of the same age, sex, and race/ethnicity. The interpretation of the calcium heart score is based on the following continuum*: 0 = no calcified plaque detected (risk of coronary artery disease is very low ??? less than 5%) 1-10 = calcium detected in extremely minimal levels (risk of coronary diseases is still low ??? less than 10%) 11-100 = mild levels of plaque detected with certainty (mild or minimal narrowing of heart arteries is likely) 101-400 = definite,at least moderate levels of plaque detected (relatively high risk of a heart attack within 3-5 years) >401-999 = extensive levels of plaque detected (high risk of heart attack, high levels of vascular disease are present, high likelihood of at least one significant coronary narrowing) *The calcium heart score quantifies the burden of coronary calcification/plaque in the coronary arteries. The calcium heart score is not able to evaluate the presence or burden of non-calcified (i.e. soft) plaque. There is no identifiable calcification in the aortic valve, mitral annulus or mitral valve, pericardium, or myocardium. Coronary CT Angiography Coronaries have normal origin and proximal course. The coronary arterial system is right dominant. Note: Stenosis is reported as maximum percentage diameter stenosis. Quantitative Stenosis Grading: Left Main (LM): The left main originates normally f
[2023-08-06 12:14] VITALS: BMI 46.7
[2023-08-06 12:16] VITALS: BP 135/75; PULSE 80; RESP 18; TEMP 36.5; O2SAT 96
[2023-08-06 12:24] LABS: POC Glucose,Bedside 89 (70-110)
[2023-08-06 13:25] VITALS: BP 127/78; PULSE 65; RESP 18; O2SAT 98
[2023-08-06 13:30] VITALS: BP 126/69
[2023-08-06 13:35] VITALS: BP 97/64; PULSE 63; RESP 18; O2SAT 96
[2023-08-06 13:47] VITALS: BP 109/76; PULSE 62; RESP 17; TEMP 36.2; O2SAT 96
--- NOTE | 2023-08-06 14:00 | CA_ITS ---
APPROVED REPORT EXAM: Comprehensive 2D, Doppler, and color-flow Echocardiogram Wildlife Conservation Officer: Nicole Langley RT(R) Ht: 5 ft 4 in Wt: 286lbs BSA: 2.28 BP: 144/96 mmHg Indications: CP, edema, SOB, HTN 2D Dimensions LA Volume 37.40 mL LA Volume Index 16.40 mL/m2 (M/F) 16-34 EF AP4 52.70 % GL Strain -17.2 % M-Mode Dimensions RVDd 2.86 cm (0.9-2.6) LVDd 4.67 cm (3.5-5.7) LVDs 3.66 cm (3.5-5.7) IVSd 0.93 cm (0.6-1.1) PWd 0.93 cm (0.6-1.1) EF (Teich) 43.80% FS 21.60% EDV (Teich) 100.80 mL ESV (Teich) 56.60 mL LV Diastology E Decel Time 183 (160-240 msec) E/A Ratio 1.04 MED A' 7.00 cm/s LAT A' 11.80 cm/s Mitral Valve MV A Velocity 85.0 (40-130 cm/s) E/A Ratio 1.04 Tricuspid Valve TR P. Velocity 224.00 cm/s RAP Estimate 10.00 mmHg RVSP 30.10 mmHg Left Ventricle The left ventricle is normal size. The left ventricular systolic function is normal. The left ventricular ejection fraction is within the normal range. There is normal left ventricular wall thickness. There is normal LV segmental wall motion. The left ventricular diastolic function is normal. LVEF is 55%. Right Ventricle The right ventricle is normal size. The right ventricular systolic function is normal. Atria The left atrium size is normal. The right atrium size is normal. There is no Doppler evidence of interatrial shunt. Aortic Valve Aortic valve is mildly thickened. There is no aortic valvular stenosis. Trace aortic regurgitation. Mitral Valve Mitral valve leaflets are mildly thickened. No evidence of mitral valve stenosis. Mild mitral regurgitation. Tricuspid Valve The tricuspid valve leaflets are thin and pliable. Trace tricuspid regurgitation. There is insufficient TR jet to estimate RVSP. Pulmonic Valve The pulmonary valve is normal in structure. Trace pulmonic regurgitation. Great Vessels The aortic root is normal in size. The ascending aorta is normal in size. IVC is normal in size and collapses >50% with inspiration. Pericardium There is no pericardial effusion. Other Information Study Quality: Fair Conclusion Normal biventricular systolic function. Mild MR. Electronically signed by : Maria Teresa Christy MD 08/10/2023 19:36:36
[2023-08-06 14:07] VITALS: BP 105/63; BP 129/76; PULSE 63; PULSE 65; RESP 17; RESP 18; O2SAT 97; O2SAT 98
--- NOTE | 2023-08-06 14:07 | PC.NURSE ---
echo notified of patient being in post op.
== END 2023-08-06 14:11 | disposition home or self-care (01) ==
PROVIDERS: PCP Internal Medicine; Visit Provider Internal Medicine
DX: R06.00 Dyspnea, unspecified (principal); R07.89 Other chest pain; R42 Dizziness and giddiness; E78.5 Hyperlipidemia, unspecified
CPT/HCPCS: 75571; 75574; 82962; 93306; Q9967

== ENCOUNTER → 2023-08-19 11:39 | Outpatient (CLI) | payer OTHER, MEDICARE, SELFPAY ==
[2023-08-19 11:29] LABS: Chloride 105 mmol/L (98-107); Sodium 141 mmol/L (136-145)
[2023-08-19 11:30] LABS: Potassium 4.7 mmoL/L (3.5-5.1)
[2023-08-19 11:32] LABS: Alanine Aminotransferase 26 U/L (12-78); Albumin Level 4.3 g/dl (3.5-5.0); Albumin/Globulin Ratio 1.5 (1.1-1.8); Alkaline Phosphatase 94 U/L (38-126); Anion Gap 12.7 mEq/L (5-15); Aspartate Amino Transferase 33 U/L (14-36); Bilirubin,Total 0.6 mg/dl (0.2-1.3); Blood Urea Nitrogen 14 mg/dl (7-17); Carbon Dioxide 28 mmol/L (22.0-30.0); Estimated Glomerular Filt Rate 57 ml/min (>60); GFR (African American) 69 ML/MIN (>60); Globulin 2.8 g/dL (1.3-3.2); Total Protein,Serum 7.1 g/dl (6.3-8.2)
[2023-08-19 11:33] LABS: Calcium 9.6 mg/dl (8.4-10.2); Chol/HDL Ratio 4.1 (1-3.5); Cholesterol 219 mg/dl (140-200); Glucose 83 mg/dl (74-100); HDL Cholesterol 53 mg/dl (40-60); Triglycerides 148 mg/dl (30-150); VLDL Cholesterol 30 mg/dL (0-40)
[2023-08-19 11:44] LABS: Direct LDL Cholesterol 116.14 mg/dL (100-129)
[2023-08-19 11:49] LABS: Hemoglobin A1C 5.1 % (4.0-6.0)
[2023-08-19 11:51] LABS: 25-OH Vitamin D, Total 36.9 ng/mL (30-100)
[2023-08-19 12:35] LABS: Microalbumin/Creatinine Ratio 3.7
[2023-08-19 12:36] LABS: Creatinine,Urine Random 253 mg/dL (Not Estab.)
== END ==
LOC: LAB.DROPOF 11:40
PROVIDERS: PCP Internal Medicine; Visit Provider Internal Medicine
DX: R07.89 Other chest pain (principal); R06.09 Other forms of dyspnea; E78.5 Hyperlipidemia, unspecified; I11.9 Hypertensive heart disease without heart failure; E66.9 Obesity, unspecified; Z68.42 Body mass index [BMI] 45.0-49.9, adult; Z79.899 Other long term (current) drug therapy
CPT/HCPCS: 80053; 80061; 82043; 82306; 82570; 83036

== ENCOUNTER 2024-05-26 08:49 | Outpatient (RCR) | payer BC, MEDICARE, SELFPAY ==
--- NOTE | 2024-05-26 09:39 | HMH.PTOPEV ---
PT Outpatient Evaluation Rehab PT Outpatient Evaluation Start: 05/26/24 09:22 Freq: Status: Active Protocol: Document 05/26/24 09:22 ANA (Rec: 05/26/24 09:39 ANA [id number]) E-signed By Renzo Garcia, PT Outpatient Therapy Subjective History Subjective History Pt reports h/o chronic localized dorsum surface bilateral foot swelling and pain for 'at least 3 years.' Pt reports left > right foot pain historically and severe exacerbation over the last ~3 months. Pt reports increased pain w/wt. bearing activities and increased swelling as well . Pt reports still awaiting referral to podiatry provider. New diagnosis of cancer in past 12 No months? Chief Complaint Pain,Swelling Symptom Type Ache,Throb,Dull Symptoms Relieved By Rest/Positioning,OTC Meds Symptoms Aggravated By Physical Activity,Walking Prior Functional Limitations Housework,Standing,Walking Current Functional Limitations Housework,Standing,Walking Symptom Description Constant but Variable Level of pain today (0-10) 8 Pain scale - at its best (0-10) 8 Pain scale - at its worst (0-10) 10 Ankle/Foot Eval Gait Observation General Gait Pattern Observation Antalgic Gait Assistive Device Ambulation Assistive Device None Palpation Tenderness bilateral Ankle/Foot Palpation Findings Tenderness Ankle/Foot Palpation Overall Comment 3/4 dorsum mid foot b/t 2nd and 3rd ray ROM left Ankle/Foot Dorsiflexion w/Knee Extended 0-2 Active Range Motion (degrees) Ankle/Foot Plantar Flexion Active Range 0-40 of Motion (degrees) Ankle/Foot Eversion Active Range of 0-15 Motion (degrees) Ankle/Foot Inversion Active Range of 0-50 Motion (degrees) right Ankle/Foot Dorsiflexion w/Knee Extended 0-5 Active Range Motion (degrees) Ankle/Foot Plantar Flexion Active Range 0-43 of Motion (degrees) Ankle/Foot Eversion Active Range of 0-21 Motion (degrees) Ankle/Foot Inversion Active Range of 0-50 Motion (degrees) MMT bilateral Ankle Dorsiflexion Strength Grade 4- Good- Ankle Plantarflexion Strength Grade 4 Good Foot Eversion Strength Grade 4 Good Foot Inversion Strength Grade 4 Good Special Tests Talar Tilt Test Negative Left,Negative Right Ankle Inversion (supination) Test Negative Left,Negative Right Lower Extremity Functional Index Activities Today, do you or would you have any difficulty at all with: a.Any of your usual work, housework or Extreme difficulty or unable school activities to perform activity b. Your usual hobbies, recreational or Extreme difficulty or unable sporting activities to perform activity c. Getting into or out of the bath Extreme difficulty or unable to perform activity d. Walking between rooms Extreme difficulty or unable to perform activity e. Putting on your shoes or socks Extreme difficulty or unable to perform activity f. Squatting Quite a bit of difficulty g. Lifting an object, like a bag of Quite a bit of difficulty groceries from the floor h. Performing light activities around Quite a bit of difficulty your home i. Performing heavy activities around Extreme difficulty or unable your home to perform activity j. Getting into or out of a car Extreme difficulty or unable to perform activity k. Walking 2 blocks Quite a bit of difficulty l. Walking a mile Extreme difficulty or unable to perform activity m. Going up or down 10 stairs (about 1 Extreme difficulty or unable flight of stairs) to perform activity n. Standing for 1 hour Extreme difficulty or unable to perform activity o. Sitting for 1 hour Quite a bit of difficulty p. Running on even ground Extreme difficulty or unable to perform activity q. Running on uneven ground Extreme difficulty or unable to perform activity r. Making sharp turns while running fast Extreme difficulty or unable to perform activity s. Hopping Extreme difficulty or unable to perform activity t. Rolling over in bed A little bit of difficulty LEFI Score Lower Extremity Functional Index Score 8 Outpatient Therapy Assessment Impairments Problems/Impairmments Palpation Tenderness,Impaired Range of Motion,Impaired Strength,Impaired Gait Pattern ,Impaired Walking,Impaired Standing,Impaired Household Care,Subjective C/O Pain, Impaired Self Care/Self Management Prognosis Rehab Potential Good Clinical Impression Consistent with Diagnosis Yes Short Term Goals Number of Weeks 4 Decreased Palpation Tenderness Yes: 1-2/4 dorsum bilateral mid foot Increase Range of Motion Yes: 75% of WFL B/L ANKLE AROM Increase Strength Yes: 4/5 B/L ANKLE MM Increase Ability to Walk Yes: 30MIN Increase Ability to Stand Yes: 30MIN Improve Ability For Household Care Yes: 30MIN Improve LEFI Score Yes: 25-30 Decrease Subjective C/O Pain Yes: 3-4/10 W/ABOVE ACTIVITIES Patient to be Ind w/ HEP Yes Wet Silk Hanger Goals Number of Weeks 6-8 Decreased Palpation Tenderness Yes: 0-1/4 DORSUM B/L MIDFOOT Increase Range of Motion Yes: WFL B/L ANKLE AROM Increase Strength Yes: 4+-5/5 B/L ANKLE MM Improve Gait Pattern without Assistive Yes: WFL Device Increase Ability to Walk Yes: 60MIN Increase Ability to Stand Yes: 60MIN Improve Ability For Household Care Yes: 60MIN Improve LEFI Score Yes: 55-60 Decrease Subjective C/O Pain Yes: 0-2/10 W/ABOVE ACTIVITIES Patient to be Ind w/ Advanced HEP Yes Outpatient Therapy Plan of Care Treatment Plan May Include Therapeutic Exercise Including Home Yes Exercise Program Manual Therapy Techniques Yes Neuromuscular Re-education Yes Therapeutic Activities to Return to Yes Previous Functional/Work Level Gait Training Yes ADL/Self Care Education Yes Dry Needling Yes Thermal Modalities Yes Electrical Stimulation Yes Ultrasound/Phonophoresis Yes Iontophoresis Yes Orthotics/Bracing/Splinting Yes Vasopneumatic Compression Pump Yes Manual Lymphatic Drainage Yes Eval/Re-Eval Yes Frequency Times per week 2-3 Duration Number of Weeks 6-8 Addendums This patient is a candidate for social No or vocational rehab? Patient/Guardian verbally acknowledges Yes understanding of treatment program and consents to further treatment? Patient/Guardian verbally acknowledges Yes understanding of diagnosis, prognosis and goals for treatment? Eval Complexity PT Charges 85414 - Moderate Complexity Shoulder/Elbow Eval Shoulder Objective Measurements Elbow Objective Measurements PHYSICIAN CERTIFICATION: I certify the specified therapy services for Selam Good are required, authorized, and reviewed every 30 days.
== END 2024-05-26 23:59 | disposition home or self-care (01) ==
LOC: PT 08:49
PROVIDERS: Visit Provider Family Medicine
DX: M79.671 Pain in right foot (principal); M79.672 Pain in left foot; Z78.9 Other specified health status
CPT/HCPCS: 97163

== ENCOUNTER 2024-09-14 09:44 | Outpatient (CLI) | payer BC, MEDICARE, SELFPAY ==
--- NOTE | 2024-09-14 09:46 | XR_ITS ---
FINAL REPORT CLINICAL HISTORY: knee pain COMPARISON: 12/04/2022 FINDINGS: RIGHT KNEE: 3 views of the right knee demonstrate a prior arthroplasty of the right knee. There is no acute fracture or dislocation. The joint spaces are intact. There is no soft tissue abnormality. IMPRESSION: Prior right knee arthroplasty without acute bony abnormality. Reviewed, Interpreted and Dictated by Estrella Brooks MD Transcribed by Andreea Moss Authenticated and [facility]
--- NOTE | 2024-09-14 09:46 | XR_ITS ---
FINAL REPORT CLINICAL HISTORY: knee pain COMPARISON: 03/21/2023 FINDINGS: LEFT KNEE 3 views of the left knee were obtained. There is no acute fracture or dislocation. Visualized joint spaces are normally aligned. Moderate degenerative changes are present without fracture. Soft tissues are unremarkable. IMPRESSION: Moderate degenerative change without acute bony abnormality. Reviewed, Interpreted and Dictated by Estrella Brooks MD Transcribed by Andreea Moss Authenticated and [facility]
== END 2024-09-14 23:59 | disposition home or self-care (01) ==
LOC: RAD 09:45
PROVIDERS: PCP Family Medicine; Visit Provider Physician Assistant
DX: M25.561 Pain in right knee (principal); M25.562 Pain in left knee
CPT/HCPCS: 73562

== ENCOUNTER 2024-09-24 07:07 | Outpatient (CLI) | payer BC, MEDICARE, SELFPAY ==
[2024-09-24 18:19] LABS: Basophils % 0.5 % (0.1-2.0); Eosinophils # 0.2 K/mm3 (0.0-0.4); Eosinophils % 3.6 % (0.1-12.0); Hematocrit 39.4 % (37.0-47.0); Hemoglobin 12.6 g/dL (12.2-16.2); Lymphocytes # 2.3 K/mm3 (0.7-4.5); Lymphocytes % 41.3 % (10-50); Mean Corpuscular Hemoglobin 29.6 pg (27.0-31.2); Mean Corpuscular Volume 92.7 fl (81-99); Mean Platelet Volume 9.4 fl (7.4-10.4); Monocytes # 0.6 K/mm3 (0.1-1.0); Monocytes % 10.4 % (1.7-9.3); Neutrophils # 2.4 K/mm3 (1.8-7.8); Neutrophils % 43.7 % (37.0-80.0); Platelet Count 291 K/mm3 (142-424); Red Blood Count 4.25 M/mm3 (4.20-5.40); Red Cell Distribution Width 13.1 % (11.5-17.5); White Blood Count 5.5 K/mm3 (4.8-10.8)
[2024-09-24 18:51] LABS: Albumin Level 4.1 g/dl (3.5-5.0); Chloride 106 mmol/L (98-107)
[2024-09-24 18:52] LABS: Potassium 5.3 mmoL/L (3.5-5.1); Sodium 141 mmol/L (136-145)
[2024-09-24 18:54] LABS: Alanine Aminotransferase 20 U/L (12-78); Albumin/Globulin Ratio 1.6 (1.1-1.8); Amylase 68 U/L (30-110); Anion Gap 13.3 mEq/L (5-15); Aspartate Amino Transferase 24 U/L (14-36); Blood Urea Nitrogen 16 mg/dl (7-17); Carbon Dioxide 27 mmol/L (22.0-30.0); Estimated Glomerular Filt Rate 64 ml/min (>60); GFR (African American) 78 ML/MIN (>60); Globulin 2.5 g/dL (1.3-3.2); Total Protein,Serum 6.6 g/dl (6.3-8.2)
[2024-09-24 18:55] LABS: Alkaline Phosphatase 118 U/L (38-126); Bilirubin,Total 0.3 mg/dl (0.2-1.3); Calcium 9.4 mg/dl (8.4-10.2); Cholesterol 253 mg/dl (140-200); Glucose 102 mg/dl (74-100); HDL Cholesterol 63 mg/dl (40-60); Lipase 124 U/L (23-300); Triglycerides 206 mg/dl (30-150); VLDL Cholesterol 41 mg/dL (0-40)
[2024-09-24 19:06] LABS: Direct LDL Cholesterol 146.92 mg/dL (100-129)
[2024-09-24 19:17] LABS: Hemoglobin A1C 5.3 % (4.0-6.0)
[2024-09-24 19:26] LABS: 25-OH Vitamin D, Total 13.7 ng/mL (30-100)
[2024-09-24 19:29] LABS: Troponin I < 0.01 ng/ml (0.00-0.034)
[2024-09-24 19:41] LABS: Thyroid Stimulating Hormone 1.84 uIU/mL (0.465-4.68)
[2024-09-24 21:43] LABS: Vitamin B12 291 pg/mL (239-931)
== END 2024-09-24 23:59 | disposition home or self-care (01) ==
LOC: LAB.DROPOF 09-25 07:07
PROVIDERS: PCP Family Medicine; Visit Provider Family Medicine
DX: E11.69 Type 2 diabetes mellitus with other specified complication (principal); R06.00 Dyspnea, unspecified; E78.2 Mixed hyperlipidemia; R10.9 Unspecified abdominal pain; R07.9 Chest pain, unspecified; I25.118 Atherosclerotic heart disease of native coronary artery with other forms of angina pectoris; K21.9 Gastro-esophageal reflux disease without esophagitis; R20.0 Anesthesia of skin; R20.2 Paresthesia of skin; Z68.43 Body mass index [BMI] 50.0-59.9, adult; E66.9 Obesity, unspecified
CPT/HCPCS: 80053; 80061; 82150; 82306; 82607; 83036; 83690; 84443; 84484; 85025

== ENCOUNTER 2024-10-28 07:43 | Outpatient (CLI) | payer BC, MEDICARE, SELFPAY ==
--- NOTE | 2024-10-28 | CA_ITS ---
APPROVED REPORT Exam: Pharmacologic Technologist: Yvonne Moran Ht: 5 ft 4 in Wt: 291 lbs BSA: 2.29 m2 HR: 74 bpm BP: 130/79 mmHg Rhythm: Nsr Medical History Medical History: Hyperlipidemia, Diabetes Medications: Atorvastatin, Buspirone, Lamotrigine, Losartan, Metformin ER, Pantoprazole, Quetiapine, Venlafaxine, Sucralfate, Famotidine Allergies: Ibuprofen Cardiac Risk Factors: Hyperlipidemia, Diabetes Stress Test Details Test: Lexiscan HR Resting HR: 74 bpm Max Heart Rate (APMHR): 161.278124 bpm Target HR (85% APMHR): 136.479477 bpm Recovery HR: 80 bpm BP Resting BP: 130.0/79.0 mmHg Max BP: 142.0/79.0 mmHg Recovery BP: 127.0/75.0 mmHg ECG Resting ECG: Nsr Stress ECG Conclusion <1.5mm ST segment changes Non-Diagnostic Lexiscan stress test Electronically signed by : Maria Teresa Christy MD 10/28/2024 12:36:00
--- NOTE | 2024-10-28 07:44 | NM_ITS ---
APPROVED REPORT Exam: Nuclear Stress Test Indication: high bp.diabetes.high cholesterol..family hx Patient Location: Outpatient Stress Tech: Yvonne Moran NE Tech:Maggie Ordonez LIAJennifer RT(R)(N) Ht: 5 ft 4 in Wt: 300 lbs Bra Size: 50c HR: 73 bpm BP: 130/79 mmHg BSA: 2.32 m2 TID: 1.30 BMI: 51.4 History: high bp.diabetes.high cholesterol..family hx Procedure: Patient received 0.4 mg of intravenous Lexiscan, resting heart rate 73 bpm, resting blood pressure 130/79 mmHg, with Lexiscan maximum heart rate achieved was 90 bpm which is 85 % of the maximum predicted heart rate and blood pressure was 142/79 mmHg. With Lexiscan, patient denied any complaint of chest pain. Cardiac Stress and Resting SPECT Images: Cardiac Stress and Resting SPECT images were obtained using technetium 99m Myoview 32.4 mCi stress and 10.62 mCi at rest. Technically difficult study due to significant soft tissue overlap with the cardiac borders. This may affect the diagnostic interpretation of the study findings. Resting and stress imaging in supine and prone positions demonstrate a large sized, moderate, partially reversible perfusion defect in the anterior LV wall. There is also a medium sized, moderate, reversible perfusion defect in the basal inferior LV wall. There is increase in transient ischemic dilatation ratio (TID 1.30), suggestive of possible multivessel disease or balanced ischemia. Gated imaging demonstrates normal global LV systolic function. LVEF is calculated at 58%. Conclusion: Technically difficult study. Large sized, moderate, partially reversible perfusion defect in the anterior LV wall. There is also a medium sized, moderate, reversible perfusion defect in the basal inferior LV wall. Findings are suggestive of reversible ischemia. There is increase in transient ischemic dilatation ratio (TID 1.30), suggestive of possible multivessel disease or balanced ischemia. Gated imaging demonstrates normal global LV systolic function. LVEF is calculated at 58%. Electronically signed by : Maria Teresa Christy MD 10/28/2024 12:34:56
--- NOTE | 2024-10-28 07:44 | XR_ITS ---
FINAL REPORT CLINICAL HISTORY: foot pain COMPARISON: 09/21/2019 FINDINGS: LEFT FOOT Three views of the left foot demonstrate no acute fracture or dislocation. There are mild degenerative changes of the mid and hindfoot, worse from the prior exam. Coty-al-exjhxogr degenerative changes are noted in the 1st MTP joint. Mild hallux valgus deformity is noted. There is a small bone cyst in the 1st metatarsal head.. The soft tissues are unremarkable. IMPRESSION: Worsening degenerative changes. Reviewed, Interpreted and Dictated by Estrella Brooks MD Transcribed by Leonor Barnett Authenticated and [facility]
--- NOTE | 2024-10-28 07:44 | XR_ITS ---
FINAL REPORT CLINICAL HISTORY: foot pain COMPARISON: 09/21/2019 FINDINGS: RIGHT FOOT 3 views of the right foot were obtained. There is no acute fracture or dislocation. There are mild degenerative changes in the midfoot and hindfoot. Mild degenerative changes are also noted of the 1st MTP joint. There is mild deformity of the lateral base of the 1st proximal phalanx which may be due to old fracture but new from the prior exam. Soft tissues are unremarkable. IMPRESSION: Mild progressive degenerative changes without acute findings. Reviewed, Interpreted and Dictated by Estrella Brooks MD Transcribed by Leonor Barnett Authenticated and [facility]
[2024-10-28] MEDS: REGADENOSON 0.4MG/5ML SYRINGE 0.4 MG IV (09:34)
[2024-10-28] MEDS: ISOTOPE MYOVIEW (PER STUDY) 1 DOSE IV (09:35)
[2024-10-28] MEDS: SODIUM CHLORIDE 0.9% 10ML SYR (RAD ONLY) 10 ML IV ×2 (09:35)
== END 2024-10-28 23:59 | disposition home or self-care (01) ==
LOC: RAD 07:44
PROVIDERS: PCP Family Medicine; Visit Provider Family Medicine
DX: E78.00 Pure hypercholesterolemia, unspecified (principal); R20.0 Anesthesia of skin; R20.2 Paresthesia of skin; R10.13 Epigastric pain; R06.09 Other forms of dyspnea; I25.118 Atherosclerotic heart disease of native coronary artery with other forms of angina pectoris; M79.671 Pain in right foot; M79.672 Pain in left foot
CPT/HCPCS: 73630; 78452; 93017; 93018; A9502; J2785

== ENCOUNTER 2024-11-05 07:44 | Outpatient (CLI) | payer BC, MEDICARE, SELFPAY ==
--- NOTE | 2024-11-05 07:50 | CA_ITS ---
APPROVED REPORT EXAM: Comprehensive 2D, Doppler, and color-flow Echocardiogram Air Control/Anti Air Warfare Officer: Franca Hancock RVT Ht: 5 ft 4 in Wt: 284lbs BSA: 2.27 BP: 165/84 mmHg Indications: CP,SOA,DM,HTN,HLD,ABN GXT 2D Dimensions LA Volume 34.40 mL LA Volume Index 15.15 mL/m2 (M/F) 16-34 M-Mode Dimensions RVDd 2.59 cm (0.9-2.6) LA Diam 4.13 cm (1.9-4.0) LVDd 4.67 cm (3.5-5.7) LVDs 2.85 cm (3.5-5.7) IVSd 1.19 cm (0.6-1.1) PWd 0.59 cm (0.6-1.1) EF (Teich) 69.30% FS 39.00% EDV (Teich) 100.80 mL TAPSE 1.88 (<1.7) ESV (Teich) 30.90 mL LV Diastology E Decel Time 300 (160-240 msec) E/A Ratio 0.8 Aortic Valve WALDO Index 0.83 cm2/m2 AoV Peak Oliver. 185.0 (50-130 cm/s) AO Peak GR. 13.60 mmHg AO Mean GR. 7.10 (<5 mmHg) AO VTI 39.7 (18-25 cm) WALDO (VTI) 1.93 (2.5-4.5 cm2) Mitral Valve MV E Max Oliver. 74.0 (40-130 cm/s) MV A Velocity 97.0 (40-130 cm/s) E/A Ratio 0.76 MV PHT 88.0 ms Pulmonary Valve PV Peak Velocity 101.0 (50-150 cm/s) Tricuspid Valve TR P. Velocity 239.00 cm/s RAP Estimate 10.00 mmHg RVSP 32.80 mmHg Left Ventricle The left ventricle is normal size. The left ventricular systolic function is normal. The left ventricular ejection fraction is within the normal range. There is increased LV wall thickness. There is normal LV segmental wall motion. The left ventricular diastolic function is normal. LVEF is 55%. Right Ventricle Right ventricle is mildly dilated. The right ventricular systolic function is normal. Atria The left atrium size is normal. The right atrium size is normal. There is no Doppler evidence of interatrial shunt. Aortic Valve The aortic valve is mildly thickened. There is no aortic valvular stenosis. No aortic regurgitation is present. Mitral Valve The mitral valve is normal in structure. No evidence of mitral valve stenosis. Trace mitral valve regurgitation noted. Tricuspid Valve Tricuspid valve is grossly normal in structure and function. Trace tricuspid regurgitation. There is insufficient TR jet to estimate RVSP. Pulmonic Valve The pulmonary valve is normal in structure. Trace pulmonic regurgitation. Great Vessels The aortic root is normal in size. IVC is normal in size and collapses >50% with inspiration. Pericardium There is no pericardial effusion. Other Information Study Quality: Fair Conclusion Normal biventricular systolic function. Mild RV dilation. No significant valvular stenosis or regurgitation. Electronically signed by : Maria Teresa Christy MD 11/15/2024 12:12:12
== END 2024-11-05 23:59 | disposition home or self-care (01) ==
LOC: RT 07:45
PROVIDERS: PCP Family Medicine; Visit Provider Physician Assistant
DX: I51.7 Cardiomegaly (principal); R94.39 Abnormal result of other cardiovascular function study; I20.89 Other forms of angina pectoris; R06.09 Other forms of dyspnea
CPT/HCPCS: 93306

== ENCOUNTER 2024-11-12 10:12 | Outpatient (CLI) | payer BC, MEDICARE, SELFPAY ==
[2024-11-12 20:04] LABS: Albumin Level 3.9 g/dl (3.5-5.0); Chloride 108 mmol/L (98-107); Potassium 4.3 mmoL/L (3.5-5.1); Sodium 139 mmol/L (136-145)
[2024-11-12 20:06] LABS: Blood Urea Nitrogen 15 mg/dl (7-17); Estimated Glomerular Filt Rate 64 ml/min (>60); GFR (African American) 78 ML/MIN (>60)
[2024-11-12 20:07] LABS: Alanine Aminotransferase 24 U/L (12-78); Albumin/Globulin Ratio 1.9 (1.1-1.8); Alkaline Phosphatase 92 U/L (38-126); Anion Gap 10.3 mEq/L (5-15); Aspartate Amino Transferase 26 U/L (14-36); Bilirubin,Total 0.4 mg/dl (0.2-1.3); Calcium 9.2 mg/dl (8.4-10.2); Carbon Dioxide 25 mmol/L (22.0-30.0); Cholesterol 146 mg/dl (140-200); Globulin 2.1 g/dL (1.3-3.2); Glucose 118 mg/dl (74-100); HDL Cholesterol 48 mg/dl (40-60); Triglycerides 101 mg/dl (30-150); VLDL Cholesterol 20 mg/dL (0-40)
[2024-11-12 20:18] LABS: Direct LDL Cholesterol 73.03 mg/dL (100-129)
== END 2024-11-12 23:59 | disposition home or self-care (01) ==
LOC: LAB.DROPOF 11-15 12:09
PROVIDERS: PCP Family Medicine; Visit Provider Family Medicine
DX: E78.00 Pure hypercholesterolemia, unspecified (principal)
CPT/HCPCS: 80053; 80061

== ENCOUNTER 2024-11-25 07:41 | Outpatient (CLI) | payer BC, MEDICARE, SELFPAY ==
--- NOTE | 2024-11-25 08:00 | MM_ITS ---
PROCEDURE INFORMATION: Exam: MG Bilateral Screening 3D Mammography Exam date and time: 11/25/2024 8:07 AM Age: 59 years old Clinical indication: Screening examination TECHNIQUE: Imaging protocol: Bilateral Screening tomosynthesis and 2D mammography including computer-aided detection (CAD) when performed. COMPARISON: 1. MG MM DIG SCREENING MAMM BI W/CAD 07/23/2023 10:46 AM 2. MG MM DIG SCREENING MAMM BI W/CAD 06/04/2022 9:56 AM FINDINGS: MAMMOGRAPHY: Breast composition: There are scattered areas of fibroglandular density. Mass: None. Architectural distortion: None. Calcifications: No suspicious calcifications. Asymmetric density: None. Skin thickening: None. Axillary adenopathy: None. IMPRESSION: No mammographic evidence of malignancy. Annual screening is recommended unless otherwise clinically indicated. ASSESSMENT: BI-RADS Category 1: Negative.
== END 2024-11-25 23:59 | disposition home or self-care (01) ==
LOC: RAD 07:42
PROVIDERS: PCP Family Medicine; Visit Provider Family Medicine
DX: Z12.31 Encounter for screening mammogram for malignant neoplasm of breast (principal)
CPT/HCPCS: 77063; 77067

== ENCOUNTER 2025-05-17 09:44 | Outpatient (CLI) | payer BC, MEDICARE, SELFPAY ==
[2025-05-17 15:09] LABS: Hematocrit 39.3 % (37.0-47.0); Hemoglobin 13.1 g/dL (12.2-16.2); Immature Granulocytes % 0.3 %; Mean Corpuscular HGB Conc 33.3 g/dL (31.8-35.4); Mean Corpuscular Hemoglobin 30.8 pg (27.0-31.2); Mean Corpuscular Volume 92.3 fl (81-99); Nucleated Red Blood Cells % 0 %; Platelet Count 299 K/mm3 (142-424); Red Blood Count 4.26 M/mm3 (4.20-5.40); Red Cell Distribution Width-SD 43.0 fL; White Blood Count 7.1 K/mm3 (4.8-10.8)
[2025-05-17 15:56] LABS: Albumin Level 4.0 g/dl (3.5-5.0); Chloride 105 mmol/L (98-107); Sodium 139 mmol/L (136-145)
[2025-05-17 15:57] LABS: Potassium 4.1 mmoL/L (3.5-5.1)
[2025-05-17 15:59] LABS: Alanine Aminotransferase 16 U/L (12-78); Albumin/Globulin Ratio 1.5 (1.1-1.8); Alkaline Phosphatase 96 U/L (38-126); Anion Gap 13.1 mEq/L (5-15); Aspartate Amino Transferase 22 U/L (14-36); Bilirubin,Total 0.6 mg/dl (0.2-1.3); Blood Urea Nitrogen 18 mg/dl (7-17); Carbon Dioxide 25 mmol/L (22.0-30.0); Creatinine,Serum 0.90 mg/dl (0.52-1.04); Estimated Glomerular Filt Rate 64 ml/min (>60); GFR (African American) 78 ML/MIN (>60); Globulin 2.6 g/dL (1.3-3.2); Total Protein,Serum 6.6 g/dl (6.3-8.2); Triglycerides 116 mg/dl (30-150)
[2025-05-17 16:00] LABS: Calcium 9.6 mg/dl (8.4-10.2); Cholesterol 175 mg/dl (140-200); Glucose 113 mg/dl (74-100); HDL Cholesterol 63 mg/dl (40-60)
[2025-05-17 16:19] LABS: 25-OH Vitamin D, Total 26.9 ng/mL (30-100)
[2025-05-17 16:33] LABS: Thyroid Stimulating Hormone 1.74 uIU/mL (0.465-4.68)
[2025-05-17 16:34] LABS: Hemoglobin A1C 5.3 % (4.0-6.0)
--- OUTSIDE RECORDS SUMMARY | 2025-05-18 13:00 | XMS_ITS | Clinical Summary ---
Author Organization Healthcare Address [facility] [place] [id number] Care Team Providers Care Stile Ripsaw Operator Name Role Phone Enzo Garcia MD Primary Care Provider + [phone] Allergies Active Allergy Reactions Criticality Noted Date Comments Ibuprofen Rash Low 08/01/2022 Medications albuterol (2.5 MG/3ML) 0.083% nebulizer solution Take 2.5 mg by nebulization every 6 (six) hours if needed. Active busPIRone (Buspar) 30 MG tablet Take by mouth 2 (two) times a day. Active lamoTRIgine (LaMICtal) 150 MG tablet Take by mouth 2 (two) times a day. Active omeprazole (PriLOSEC) [address] capsule Take 40 mg by mouth 1 (one) time each day. Do not crush or chew. Active QUEtiapine (SEROquel) 400 MG tablet Take 400 mg by mouth 2 (two) times a day. Active venlafaxine (Effexor) 100 MG tablet Take 100 mg by mouth 2 (two) times a day. Active oxyCODONE-aceta minophen (Percocet) 10-325 MG tablet 3 Active GNP Melatonin 3 MG tablet 3 Active losartan (Cozaar) 25 MG tablet 3 Active Immunizations Immunization Administration Dates Next Due Influenza, injectable, quadrivalent, preservativ e free 06/26/2019,05/16/2017 Family History Medical History Relation Name Comments Cancer Father Diabetes Mother Relation Name Status Comments Father Mother Social History Tobacco Use Types Packs/Day Years Used Date Smoking Tobacco: Never Passive Smoke Exposure: Never Smokeless Tobacco: Never Tobacco Cessation:Counseling Given: Not Answered Alcohol Use Standard Drinks/Week Comments Yes 0 (1 standard drink = 0.6 oz pur e alcohol) Comments Unknown Sex and Gender Information Value Date Recorded Sex Assigned at Not on file Legal Sex Female 8:47 PM EDT Gender Identity Not on file Sexual Orientation Not on file Last Filed Vital Signs Vital Sign Reading Time Taken Comments Blood Pressure 146/86 11/11/2022 1:12 PM EDT Pulse 77 11/11/2022 1:12 PM EDT Temperature - - Respiratory Rate - - Oxygen Saturation - - Inhaled Oxygen Concentration - - Weight 136 kg (299 lb) 11/11/2022 1:12 PM EDT Height 162.6 cm (5' 4 ) 11/11/2022 1:12 PM EDT Body Mass Index 51.32 11/11/2022 1:12 PM EDT Plan of Treatment Health Maintenance Due Date Last Done Comments [facility]-Depression Screening 1965 [facility]-Infant/Child/Adol SDOH Screenings 1965 [facility]- SDOH Screenings 1983 [facility]-Adult SDOH Screenings 1983 [facility]-DTaP,Tdap,and Td Vaccine s (1 - Tdap) 1984 [facility]-Hepatitis B Vaccines (1 of 3 - 19+ 3-dose series) 1984 [facility]-Pap Smear 1986 [facility]-Cervical Cancer Screening 1995 [facility]-HPV/Cotest 1995 CT Colonography 2010 Colonoscopy 2010 FIT-DNA 2010 FIT 2010 FOBT 2010 Sigmoidoscopy 2010 [facility]-Colorectal Cancer Screening 2010 [facility]-Pneumococcal Vaccine: 50 + Years (1 of 1 - PCV) 2015 [facility]-Zoster Vaccines (1 of 2) 2015 VTV-AAORE-27 Vaccine (3 - 2024- season) 2025 07/07/2021, 12/02/2020 [facility]-Influenza Vaccine (#1) 05/02/202506/26, 05/16/2017 HPV Vaccines Aged Out No longer eligi ble based on patient's age to complete this topic [facility]-HIB Vaccines Aged Out No longer e ligible based on patient's age to complete this topic [facility]-Hepatitis A Vaccines Aged Out No longer eligible based on patient's age to complete this topic [facility]-IPV Vaccines Aged Out No longer e ligible based on patient's age to complete this topic [facility]-Rotavirus Vaccines Aged Out No lo nger eligible based on patient's age to complete this topic Insurance [employer] MEDICARE Care Teams Stile Ripsaw Operator Relationship Specialty Start Date End Date Enzo Garcia MD [address] [place] [address] PCP - General 10/09/22
--- OUTSIDE RECORDS SUMMARY | 2025-05-18 13:00 | XMS_ITS | Continuity of Care Document ---
Author Organization [facility] Address [address] [place] [address] Phone Care Team Providers Care Lens Generating Machine Tender Name Role Phone Unavailable Primary Care Provider Unavailabl e Encounters Date Type Department Care Team Description 05/02/2022 10:43 AM EDT - 05/02/2022 11:59 PM EDT Hospital Encounter [facility] [address] [address] Bipolar I disorder, most recent episode depressed, severe with psychotic features (HCC) Discharge Disposition: Home or Self Care 07/10/2021 Travel 04/09/2021 10:52 AM EDT - 04/09/2021 11:59 PM EDT Hospital Encounter [facility] [address] [address] Bipolar I disorder, most recent episode depressed, severe with psychotic features (HCC) Discharge Disposition: Home or Self Care 04/09/2021 Travel 02/26/2021 10:52 AM EDT - 02/26/2021 11:59 PM EDT Hospital Encounter [facility] [address] [id number] Bipolar I disorder, most recent episode depressed, severe with psychotic features (HCC) Discharge Disposition: Home or Self Care 02/26/2021 Travel 11/20/2020 Travel 07/10/2020 Travel 04/10/2020 12:08 PM EDT - 04/10/2020 11:59 PM EDT Hospital Encounter [facility] [address] [id number] Therapeutic drug monitoring; Bipolar I disorder, most recent episode depressed, severe with psychotic features (HCC) Discharge Disposition: Home or Self Care 04/10/2020 Travel 07/13/2019 10:33 AM EST - 07/13/2019 11:59 PM EST Hospital Encounter [facility] [address] [address] Therapeutic drug monitoring Discharge Disposition: Home or Self Care 02/01/2019 3:10 PM EDT - 02/01/2019 11:59 PM EDT Hospital Encounter [facility] [address] [address] Therapeutic drug monitoring; Dyslipidemia; [place] use Discharge Disposition: Home or Self Care Allergies No known active allergies Medications busPIRone (BUSPAR) 15 mg Oral TabletIndicati ons:Generalize d anxiety disorder TAKE TWO TABLETS BY MOUTH 2 TIMES A DAY 360 Tablet 03/23/20 25 Active lamoTRIgine (LAMICTAL) 150 mg Oral TabletIndicati ons:Bipolar I disorder, most recent episode depressed, severe with psychotic features (HCC) TAKE TWO TABLETS BY MOUTH EVERY MORNINGAND ONE TABLET IN THE EVENING 270 Tablet 03/23/20 25 Active lithium (LITHOBID) 300 mg Oral Tablet Sustained ReleaseIndicat ions:Bipolar I disorder, most recent episode depressed, severe with psychotic features (HCC) Take 1 Tablet by mouth 2 times daily. 180 Tablet 03/23/20 25 Active venlafaxine (EFFEXOR) 100 mg Oral TabletIndicati ons:Bipolar I disorder, most recent episode depressed, severe with psychotic features (HCC) Take 1 Tablet by mouth 3 times daily. 270 Tablet 03/23/20 25 Active clonazePAM (KLONOPIN) 1 mg Oral TabletIndicati ons:Primary insomnia TAKE 1 TABLET BY MOUTH AT BEDTIME 30 Tablet 05/16/20 25 Active VRAYLAR 3 mg Oral CapsuleIndicat ions:Bipolar I disorder, most recent episode depressed, severe with psychotic features (HCC) TAKE 1 CAPSULE BY MOUTH ONCE A DAY 30 Capsule 05/16/20 25 Active cariprazine (VRAYLAR) 3 mg Oral CapsuleIndicat ions:Bipolar I disorder, most recent episode depressed, severe with psychotic features (HCC) Take 1 Capsule by mouth daily. 30 Capsule 1 03/23/20 25 025 Discontinued clonazePAM (KLONOPIN) 1 mg Oral TabletIndicati ons:Primary insomnia Take 1 Tablet by mouth nightly. at bedtime 30 Tablet 1 03/23/20 25 025 Discontinued Active Problems Patient Care Coordination No te Formatting of this note migh t be different from the original. Courtney Wiseman: 05/13/18 UDS: 0 CSA: Problem Noted Date Diagnosed Date Bipolar I disorder, most rec ent episode depressed, severe with psychotic features 09/13/2019 Social History Smoking Status as of 05/18/2025 Tobacco Use Types Packs/Day Years Used Date Smoking Tobacco: Never Assessed Sex and Gender Information Value Date Recorded Sex Assigned at Not on file Legal Sex Female 8:59 AM EST Gender Identity Not on file Sexual Orientation Not on file Last Filed Vital Signs Vital Sign Reading Time Taken Comments Blood Pressure - - Pulse - - Temperature - - Respiratory Rate - - Oxygen Saturation - - Inhaled Oxygen Concentration - - Weight 143.8 kg (317 lb) 09/13/2019 10:14 AM EST Height 165.1 cm (5' 5 ) 09/13/2019 10:14 AM EST Body Mass Index 52.75 09/13/2019 10:14 AM EST Plan of Treatment Not on file Procedures Procedure Name Priority Date/Time Associated Diagnosis Comments LITHIUM LEVEL Routine 05/02/2022 10:43 AM EDT Bipolar I disorder, most recent episode depressed, severe with psychotic features (HCC) LITHIUM LEVEL Routine 04/09/2021 10:56 AM EDT Bipolar I disorder, most recent episode depressed, severe with psychotic features (HCC) LITHIUM LEVEL Routine 02/26/2021 10:54 AM EDT Bipolar I disorder, most recent episode depressed, severe with psychotic features (HCC) BASIC METABOLIC PANEL Routine 04/10/2020 12:14 PM EDT Therapeutic drug monitoring LITHIUM LEVEL Routine 04/10/2020 12:14 PM EDT Therapeutic drug monitoring LITHIUM LEVEL Routine 07/13/2019 10:33 AM EST Therapeutic drug monitoring THYROID STIMULATING HORMONE Routine 02/01/2019 3:14 PM EDT Therapeutic drug monitoring [place] use LIPID PANEL REFLEX Routine 02/01/2019 3: 14 PM EDT Therapeutic drug monitoring Dyslipidemia BASIC METABOLIC PANEL Routine 02/01/2019 3:14 PM EDT Therapeutic drug monitoring LITHIUM LEVEL Routine 02/01/2019 3:13 PM EDT Therapeutic drug monitoring Results * LITHIUM LEVEL (05/02/2022 10:43 AM EDT) Only the most recent of6 resultswithin the time period is included. [place] Lvl 0.9 0.6 - 1.2 mmol/L 05/02/2022 5:54 PM EDT [facility] Blood VENOUS BLOOD / Unknown Venipuncture / Unknown 05/02/2022 10:43 AM EDT 05/02/2022 10:43 AM EDT us Larry Valdez OUTBOARD MOTOR ASSEMBLER CHEMISTRY ORDERABLES Fin al Result [facility] [address] [facility] , [address] [place] [id number] * BASIC METABOLIC PANEL (04/10/2020 12:14 PM EDT) Only the most recent of2 resultswithin the time period is included. Sodium 142 136 - 145 mmol/L 04/10/2020 5:14 PM EDT [facility] Potassium 4.7 3.5 - 5.0 mmol/L 04/10/2020 5:14 PM EDT [facility] Chloride 104 98 - 107 mmol/L 04/10/2020 5:14 PM EDT [facility] Total CO2 26 22 - 29 mmol/L 04/10/2020 5:14 PM EDT [facility] Anion Gap 12 7 - 16 mmol/L 04/10/2020 5:14 PM EDT [facility] Calcium 9.9 8.6 - 10.4 mg/dL 04/10/2020 5:14 PM EDT [facility] Glucose Lvl 92 74 - 100 mg/dL 04/10/2020 5:14 PM EDT [facility] BUN 10 6 - 20 mg/dL 04/10/2020 5:14 PM EDT [facility] Creatinine 0.97 0.51 - 1.30 mg/dL 04/10/2020 5:14 PM EDT [facility] GFR Afr Am 77 >=60 mL/min/1.7 3 m2 04/10/2020 5:14 PM EDT [facility] GFR Non Afr Am 66 >=60 mL/min/1.7 3 m2 04/10/2020 5:14 PM EDT [facility] Comment: This estimated GFR was calculated using CKD-EPI equation which is modified based on ethnicity for Non Americans and Americans. Both results are reported since it is not always possible to determine the patient's ethnicity. This equation should only be used for individuals 18 and older. It has not been validated for use with the elderly (>70 years), women, or in some racial or ethnic subgroups, such as Hispanics. The equation will be less accurate in people with differences in nutritional status or muscle mass. Blood VENOUS BLOOD / Unknown Venipuncture / Unknown 04/10/2020 12:14 PM EDT 04/10/2020 12:15 PM EDT us Larry Valdez OUTBOARD MOTOR ASSEMBLER CHEMISTRY ORDERABLES Fin al Result [address] , [place] [address] [facility] [address] [place] [phone] * (ABNORMAL) LIPID PANEL REFLEX (02/01/2019 3:14 PM EDT) [facility] Signature Cholesterol 219(H) <=200 mg/dL 02/01/2019 5:30 PM EDT [facility] Comment: < 200 Desirable 200 - 239 Borderline High >= 240 High Triglyceride 151(H) <=150 mg/dL 02/01/2019 5:30 PM EDT [facility] Comment: < 150 Normal 150 - 199 Borderline High 200 - 499 High >= 500 Very High HDL 50 >=40 mg/dL 02/01/2019 5:30 PM EDT [facility] Comment: > 60 Optimal 40 - 60 Acceptable < 40 Low LDL Calculated 139(H) <=100 mg/dL 02/01/2019 5:30 PM EDT [facility] Non-HDL-C Calculated 169(H) <=129 mg/dL 02/01/2019 5:30 PM EDT [facility] Comment: <130 Desirable 130-159 Above Desirable 160-189 Borderline High 190-219 High >= 220 Very High Fasting Specimen? Yes None 019 5:30 PM EDT [facility] Blood VENOUS BLOOD / Unknown Venipuncture / Unknown 02/01/2019 3:14 PM EDT 02/01/2019 3:14 PM EDT Larry Valdez APRN CHEMISTRY ORDERABLES Fin al Result Performing Organization Address [facility]/ZIP Co de Phone Number [facility] [address] [facility] , [place] [address] * THYROID STIMULATING HORMONE (02/01/2019 3:14 PM EDT) [facility] Signature TSH 2.310 0.270 - 4.200 mcIU/mL 02/01/2019 5:30 PM EDT [facility] Blood VENOUS BLOOD / Unknown Venipuncture / Unknown 02/01/2019 3:14 PM EDT 02/01/2019 3:14 PM EDT Narrative [facility] - 02/01/2019 5:30 PM EDT Ingestion of megan doses of biotin (>5 mg/day) taken within 8 hours of drawing blood sample can interfere with this immunoassay test. Larry Valdez APRN CHEMISTRY ORDERABLES Fin al Result Performing Organization Address [facility]/ZIP Co de Phone Number [facility] [address] [facility] [address], [place] [address] Visit Diagnoses Diagnosis Start Date Therapeutic drug monitoring Encounter for therapeutic drug monitoring 02/01/2019 Dyslipidemia Other and unspecified hyperlipidemia 02/01/2019 [place] use Encounter for long-term (current) use of other medications 02/01/2019 Therapeutic drug monitoring Encounter for therapeutic drug monitoring 07/13/2019 Therapeutic drug monitoring Encounter for therapeutic drug monitoring 04/10/2020 Bipolar I disorder, most recent episode depressed, severe with psychotic features (HCC) Bipolar I disorder, most recent episode (or current) depressed, severe, specified as with psychotic behavior 04/10/2020 Bipolar I disorder, most recent episode depressed, severe with psychotic features (HCC) Bipolar I disorder, most recent episode (or current) depressed, severe, specified as with psychotic behavior 02/26/2021 Bipolar I disorder, most recent episode depressed, severe with psychotic features (HCC) Bipolar I disorder, most recent episode (or current) depressed, severe, specified as with psychotic behavior 04/09/2021 Bipolar I disorder, most recent episode depressed, severe with psychotic features (HCC) Bipolar I disorder, most recent episode (or current) depressed, severe, specified as with psychotic behavior 05/02/2022
== END 2025-05-17 23:59 | disposition home or self-care (01) ==
LOC: LAB.DROPOF 05-18 12:57
PROVIDERS: PCP Family Medicine; Visit Provider Family Medicine
DX: E55.9 Vitamin D deficiency, unspecified (principal); E11.9 Type 2 diabetes mellitus without complications; E78.5 Hyperlipidemia, unspecified; R53.83 Other fatigue
CPT/HCPCS: 80053; 80061; 82306; 83036; 84443; 85025

== ENCOUNTER 2025-06-06 07:22 | Outpatient (CLI) | payer BC, MEDICARE, SELFPAY ==
--- OUTSIDE RECORDS SUMMARY | 2025-06-06 07:25 | XMS_ITS | Clinical Summary ---
Author Organization Healthcare Address [facility] [place] [id number] Care Team Providers Care Dog Catcher Name Role Phone Enzo Garcia MD Primary Care Provider + [phone] Allergies Active Allergy Reactions Criticality Noted Date [...] Date Last Done Comments [facility]-Depression Screening 1965 [facility]-/Child/Adol SDOH Screenings 1965 [facility]- SDOH Screenings 1983 [...] 2015 [facility]-Zoster Vaccines (1 of 2) 2015 [id number] Vaccine (3 - 2024- season) 2025 07/07/2021, [...] this topic Insurance [employer] Care Teams Dog Catcher Relationship Specialty Start Date End Date Enzo Garcia MD [address] [place] [address] PCP - General 10/09/22
--- OUTSIDE RECORDS SUMMARY | 2025-06-06 07:25 | XMS_ITS | Continuity of Care Document ---
Author Organization 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 Name Role Phone Unavailable Primary Care Provider Unavailabl e Encounters Date Type Department Care Team Description 05/02/2022 10:43 AM EDT - 05/02/2022 11:59 PM EDT Hospital Encounter [facility] [address] [address] Bipolar I disorder, most recent episode depressed, severe with psychotic features (HCC) Discharge Disposition: Home or Self Care 07/10/2021 Travel 04/09/2021 10:52 AM EDT - 04/09/2021 11:59 PM EDT Hospital Encounter [facility] [address] [address] Bipolar I disorder, most recent episode depressed, severe with psychotic features (HCC) Discharge Disposition: Home or Self Care 04/09/2021 Travel 02/26/2021 10:52 AM EDT - 02/26/2021 11:59 PM EDT Hospital Encounter [facility] [address] [phone] Bipolar I disorder, most recent episode depressed, severe with psychotic features (HCC) Discharge Disposition: Home or Self Care 02/26/2021 Travel 11/20/2020 Travel 07/10/2020 Travel 04/10/2020 12:08 PM EDT - 04/10/2020 11:59 PM EDT Hospital Encounter [facility] [address] [phone] Therapeutic drug monitoring; Bipolar I disorder, most recent episode depressed, severe with psychotic features (HCC) Discharge Disposition: Home or Self Care 04/10/2020 Travel 07/13/2019 10:33 AM EST - 07/13/2019 11:59 PM EST Hospital Encounter [facility] [address] [address] Therapeutic drug monitoring Discharge Disposition: Home or Self Care 02/01/2019 3:10 PM EDT - 02/01/2019 11:59 PM EDT Hospital Encounter [facility] [address] [address] Therapeutic drug monitoring; Dyslipidemia; [place] use Discharge Disposition: Home or Self Care [...] 09/13/2019 Social History Smoking Status as of 06/06/2025 Tobacco Use Types Packs/Day Years Used Date [...] 02/01/2019 3:14 PM EDT Therapeutic drug monitoring [place] use LIPID PANEL REFLEX Routine 02/01/2019 3: 14 PM EDT Therapeutic drug monitoring Dyslipidemia BASIC METABOLIC PANEL Routine 02/01/2019 3:14 PM EDT Therapeutic drug monitoring LITHIUM LEVEL Routine 02/01/2019 3:13 PM EDT Therapeutic drug monitoring Results * LITHIUM LEVEL (05/02/2022 10:43 AM EDT) Only the most recent of6 resultswithin the time period is included. [place] Lvl 0.9 0.6 - 1.2 mmol/L 05/02/2022 5:54 PM EDT [facility] Blood VENOUS BLOOD / Unknown Venipuncture / Unknown 05/02/2022 10:43 AM EDT 05/02/2022 10:43 AM EDT us Larry Valdez SALES CONSULTING DIRECTOR CHEMISTRY ORDERABLES Fin al Result [facility] [address] [facility] , [address] [place] [phone] * BASIC METABOLIC PANEL (04/10/2020 12:14 PM [...] - 10.4 mg/dL 04/10/2020 5:14 PM EDT [facility] Glucose Lvl 92 74 - 100 mg/dL 04/10/2020 5:14 PM EDT [facility] BUN 10 6 - 20 mg/dL 04/10/2020 5:14 PM EDT [facility] Creatinine 0.97 0.51 - 1.30 mg/dL 04/10/2020 5:14 PM EDT [facility] GFR Afr Am 77 >=60 mL/min/1.7 3 m2 04/10/2020 5:14 PM EDT [facility] GFR Non Afr Am 66 >=60 mL/min/1.7 3 m2 04/10/2020 5:14 PM EDT [facility] Comment: This estimated GFR was calculated [...] 04/10/2020 12:15 PM EDT us Larry Valdez SALES CONSULTING DIRECTOR CHEMISTRY ORDERABLES Fin al Result [address] , [place] [address] [facility] [address] [place] [phone] * (ABNORMAL) LIPID PANEL REFLEX (02/01/2019 3:14 PM EDT) [facility] Signature Cholesterol 219(H) <=200 mg/dL 02/01/2019 5:30 PM EDT [facility] Comment: < 200 Desirable 200 - 239 Borderline High >= 240 High Triglyceride 151(H) <=150 mg/dL 02/01/2019 5:30 PM EDT [facility] Comment: < 150 Normal 150 - 199 Borderline High 200 - 499 High >= 500 Very High HDL 50 >=40 mg/dL 02/01/2019 5:30 PM EDT [facility] Comment: > 60 Optimal 40 - 60 Acceptable < 40 Low LDL Calculated 139(H) <=100 mg/dL 02/01/2019 5:30 PM EDT [facility] Non-HDL-C Calculated 169(H) <=129 mg/dL 02/01/2019 5:30 PM EDT [facility] Comment: <130 Desirable 130-159 Above Desirable 160-189 Borderline High 190-219 High >= 220 Very High Fasting Specimen? Yes None 019 5:30 PM EDT [facility] Blood VENOUS BLOOD / Unknown Venipuncture / Unknown 02/01/2019 3:14 PM EDT 02/01/2019 3:14 PM EDT Larry Valdez APRN CHEMISTRY ORDERABLES Fin al Result Performing Organization Address [facility]/ZIP Co de Phone Number [facility] [address] [facility] , [place] [address] * THYROID STIMULATING HORMONE (02/01/2019 3:14 PM EDT) [facility] Signature TSH 2.310 0.270 - 4.200 mcIU/mL 02/01/2019 5:30 PM EDT [facility] Blood VENOUS BLOOD / Unknown Venipuncture / Unknown 02/01/2019 3:14 PM EDT 02/01/2019 3:14 PM EDT Narrative [facility] - 02/01/2019 5:30 PM EDT Ingestion of megan doses of biotin (>5 mg/day) taken within 8 hours of drawing blood sample can interfere with this immunoassay test. Larry Valdez APRN CHEMISTRY ORDERABLES Fin al Result Performing Organization Address [facility]/ZIP Co de Phone Number [facility] [email or web address] [facility] [address] [facility] [address], [place] [address] Visit Diagnoses Diagnosis Start Date Therapeutic drug monitoring Encounter for therapeutic drug monitoring 02/01/2019 Dyslipidemia Other and unspecified hyperlipidemia 02/01/2019 [place] use Encounter for long-term (current) use of [...]
[2025-06-06 07:54] VITALS: BMI 51.5
[2025-06-06 08:01] VITALS: BP 139/78; PULSE 78; RESP 20; TEMP 36.3; O2SAT 99
[2025-06-06] MEDS: METOPROLOL TARTRATE 50MG TABLET PO (08:12)
[2025-06-06] MEDS: IVABRADINE HCL 7.5MG TABLET PO (08:13)
[2025-06-06 08:30] LABS: Chloride 103 mmol/L (98-107)
--- NOTE | 2025-06-06 08:30 | CT_ITS ---
APPROVED REPORT Account Support Manager: CLINICAL INDICATION Chest Pain TECHNIQUE Image Acquisition: A 128 slice MDCT scanner ([employer] View) was used for data acquisition. A noncontrast coronary calcium scan was performed. A CT attenuation threshold of 130 Hounsfield units (HU) was used for the detection of calcium in contiguous voxels of 1 sq mm in area to be counted as individual lesions. Bolus tracking in the ascending aorta with a threshold of 180 HU was performed. Immediately afterwards, ECG synchronized cardiac CT was then performed from the cardiac base to apex using retrospective gating with ECG tube current modulation. A total of 85 mL of Isovue 370 mg/mL contrast medium was administered at 5 mL/sec followed by a saline flush using a biphasic injection protocol. A tube voltage of 120 KVp was used. The average heart rate at the time of acquisition was 49 bpm and regular. Image Reconstruction Transaxial images were reconstructed at 0.67 mm slide thickness. Data was reviewed interactively on an advanced workstation capable of 2 and 3-dimensional displays in all conventional reconstruction formats, including multiplanar reformations, maximum intensity projections, curved multiplanar reformations, and volume rendered reconstructions. When applicable, selected routine images describing the relevant coronary anatomy and pathology were saved and sent to PACS. Complications None Technical Quality Overall image quality was fair. Coronary artery opacification was adequate. Total DLP (Dose-Length Product) is 2126.0 mGy-cm. The reported value represents the total of one or more individual components during the CT acquisition of this date and at this time, and as such, the same value may appear in more than one CT report depending on the interpreting/reporting physicians. COMPARISON None FINDINGS CT Coronary Calcium Scoring LMA (Left Main Artery) = 0 LAD (Left Anterior Descending) = 21 LCX (Left Coronary Circumflex) = 0 RCA (Right Coronary Artery) = 0 Total Calcium Score = 21 using the AJ-130 method. The observed calcium score of 21 is at 79th percentile for subjects of the same age, sex, and race/ethnicity. The interpretation of the calcium heart score is based on the following continuum*: 0 = no calcified plaque detected (risk of coronary artery disease is very low ??? less than 5%) 1-10 = calcium detected in extremely minimal levels (risk of coronary diseases is still low ??? less than 10%) 11-100 = mild levels of plaque detected with certainty (mild or minimal narrowing of heart arteries is likely) 101-400 = definite,at least moderate levels of plaque detected (relatively high risk of a heart attack within 3-5 years) >401-999 = extensive levels of plaque detected (high risk of heart attack, high levels of vascular disease are present, high likelihood of at least one significant coronary narrowing) *The calcium heart score quantifies the burden of coronary calcification/plaque in the coronary arteries. The calcium heart score is not able to evaluate the presence or burden of non-calcified (i.e. soft) plaque. There is no identifiable calcification in the aortic valve, mitral annulus or mitral valve, pericardium, or myocardium. Coronary CT Angiography The coronary arterial system is right dominant. Quantitative Stenosis Grading: Left Main (LM): The left main originates normally from the left sinus of Valsalva. The LM bifurcates into the left anterior descending artery and left circumflex artery. The LM is patent with no evidence of atherosclerosis. Left Anterior Descending (LAD) and Diagonal Branches: The LAD gives off 2 diagonal branch(es). there is mixed calcified/noncalcified plaque in the proximal LAD segment, with 25-49% luminal stenosis. There is no evidence of LAD-myocardial bridge. Left Circumflex (LCX) and Obtuse Marginals (OM): The LCX as a small caliber vessel. The LCx gives off 1 Obtuse Marginal (OM) branch(es). The LCX and its branches are patent with no evidence of atherosclerosis. Right Coronary Artery (RCA): The RCA originates normally from the right sinus of Valsalva. The RCA gives off a posterior descending artery (PDA) and posterolateral (PL) branches. The RCA and its branches are patent with no evidence of atherosclerosis. Non-Coronary Cardiac Findings: Analysis of the left ventricular (LV) structure and function was performed after 3-D reconstruction of the LV from axial images, with user-corrected automatic contouring for assessment of LV volumes and user-defined reconstruction from oblique planes for measurement of 3-D cardiac structure and function. -The left ventricle systolic function is normal. -There is no left atrial appendage filling defect. Two right pulmonary veins and two left pulmonary veins drain normally into the left atrium. -No pericardial thickening or calcification. -Central and branch pulmonary arteries in the [id number] are unremarkable. -Thoracic aorta within the visualized thoracic aortic-branches in the [id number] is unremarkable. Extracardiac Structures No significant extra-cardiac findings. Note, however, that this study is focused on the cardiac findings. IMPRESSION - Fair image quality. - Presence of coronary calcification with an Agatston score = 21 using the AJ-130 method. -The observed calcium score of 21 is at 79th percentile for subjects of the same age, sex, and race/ethnicity. - Mild,non-obstructive atherosclerotic coronary disease in the proximal LAD segment, with no evidence of significant flow-limiting atherosclerosis of the coronary arteries. - CAD-RADS 2. Management recommendations per ACC/AHA guidelines*, as clinically appropriate. *Recommendations: CAD RADS 0: Reassurance. Consider non-atherosclerotic causes of chest pain. CAD RADS 1: Consider non-atherosclerotic causes of chest pain. Consider preventive therapy and risk factor modification. CAD RADS 2: Consider non-atherosclerotic causes of chest pain. Consider preventive therapy and risk factor modification, particularly for patients with nonobstructive plaque in multiple segments. CAD RADS 3: Consider further functional testing. Consider symptom-guided anti-ischemic and preventive pharmacotherapy as well as risk factor modification per published guideline statements. CAD RADS 4A: Consider further functional testing or invasive coronary angiography with revascularization per published guideline statements. Consider symptom-guided anti-ischemic and preventive pharmacotherapy as well as risk factor modification per published guideline statements. CAD RADS 4B: Invasive coronary angiography recommended with revascularization per published guideline statements. Consider symptom-guided anti-ischemic and preventive pharmacotherapy as well as risk factor modification per published guideline statements. CAD RADS 5: Consider invasive angiography and/or viability assessment with revascularization per published guideline statements. Consider symptom-guided anti-ischemic and preventive pharmacotherapy as well as risk factor modification per published guideline statements. CRITICAL RESULT None COMMUNICATION Per this written report The coronary and cardiac findings of this CCTA were reviewed, reported, and signed by Thor Christy MD ([employer]er) Conclusion Electronically signed by : Maria Teresa Christy MD 06/06/2025 23:14:18
[2025-06-06 08:31] LABS: Potassium 4.1 mmoL/L (3.5-5.1)
[2025-06-06 08:33] LABS: Blood Urea Nitrogen 14 mg/dl (7-17); Creatinine Clearance Estimated 52 mL/min (50-200); Creatinine,Serum 1.00 mg/dl (0.52-1.04); Estimated Glomerular Filt Rate 57 ml/min (>60); GFR (African American) 69 ML/MIN (>60); Sodium 137 mmol/L (136-145)
[2025-06-06 08:34] LABS: Anion Gap 9.1 mEq/L (5-15); Calcium 9.8 mg/dl (8.4-10.2); Carbon Dioxide 29 mmol/L (22.0-30.0); Glucose 109 mg/dl (74-100)
[2025-06-06 09:07] VITALS: BP 147/81; PULSE 60; RESP 18; TEMP 36.9; O2SAT 98
[2025-06-06 09:12] VITALS: BP 136/79; PULSE 63; RESP 20; TEMP 36.9; O2SAT 97
[2025-06-06] MEDS: 0.9 % SODIUM CHLORIDE 50 ML VIAL IV (09:15)
[2025-06-06] MEDS: SODIUM CHLORIDE 0.9% 10ML SYR (RAD ONLY) 10 ML IV (09:15)
[2025-06-06] MEDS: IOPAMIDOL-370 (76%);100ML BOTTLE 85 ML IV (09:15)
[2025-06-06 09:20] VITALS: BP 126/82; PULSE 76; RESP 20; TEMP 36.9; O2SAT 100
== END 2025-06-06 09:26 | disposition home or self-care (01) ==
PROVIDERS: PCP Family Medicine; Visit Provider Family Medicine
DX: I25.118 Atherosclerotic heart disease of native coronary artery with other forms of angina pectoris (principal); E11.9 Type 2 diabetes mellitus without complications; R94.39 Abnormal result of other cardiovascular function study
CPT/HCPCS: 75574; 80048; Q9967

== ENCOUNTER 2025-07-07 16:00 | Outpatient (RCR) | payer BC, MEDICARE, SELFPAY ==
--- NOTE | 2025-07-05 11:30 | [facility].PTOPEV ---
PT Evaluation Rehab PT Outpatient Evaluation Start: 07/05/25 09:09 Freq: Status: Active Protocol: Document 07/05/25 09:09 CHAVA (Rec: 07/05/25 11:29 CHAVA [id number]) E-signed By Carey Gonsalves, PT Outpatient Therapy Subjective History Subjective History Pt is a 60 y/o female referred to PT for pain in left foot, peroneal tendonitis, and plantar fascial fibromatosis. Pt reports she has two knots one on the dorsum and one on the lateral aspect of the left foot that appeared this summer. Pt reports foot pain started after push mowing her yard but denies falling or spraining her ankle. Pt reports constant pain of the left foot which flares up with increased activity such as prolonged standing, walking, and stair climbing. Pt also reports soreness of the bottom of her foot. Pt reports sometimes she is unable to wear shoes due to the pressure of the shoe causing pain, states she wears slide on shoes quite a bit especially when her foot is swollen. Pt reports her ankle and foot both swell often with increased activity and at night her foot often turns red and hot. Pt reports she often scrunches her toes due to discomfort and her toes will cramp. Per report, most recent imaging of the left foot was a radiograph performed on 10/28/24 with findings of Worsening degenerative changes. Pt denies having a MRI or CT scan of her foot. Pt reports she was provided a short walking boot ~3 months ago which she wears when pain is severe but states she is unable to tolerate it for long periods of time. Pt reports she has been given 2 injections in her foot, a night splint and PowerSteps without improvement in symptoms. Pt reports she no longer uses the PowerSteps and rarely uses the night splint. Pt reports her does massage the bottom of her foot daily which helps with symptoms. Pt reports she is also seeing ortho for left knee pain with discussion of a left TKA with next follow-up appointment in 2 months. Medical History: Sleep apnea, Diabetes, Stage 3 Chronic Kidney Disease, Anxiety, Depression, Bipolar Disorder, GERD, Hyperlipidemia, Osteoarthritis of R knee, Hx of R TKA 10/15/22 New diagnosis of No cancer in past 12 months? Chief Complaint Pain,Swelling Symptom Type Ache,Throb,Dull Symptoms Relieved By Rest/Positioning Symptoms Aggravated Standing,Physical Activity,Walking By Current Functional Standing,Recreation Activity,Walking,Stairs,Balance Limitations Symptom Description Constant but Variable Level of pain today 10 (0-10) Pain scale - at its 7 best (0-10) Pain scale - at its 10 worst (0-10) Ankle/Foot Eval Gait Observation General Gait Pattern Antalgic Gait,Decrease Weight Bear (L) Observation Assistive Device Ambulation Assistive None Device Palpation Tenderness left Ankle/Foot Palpation Tenderness Findings Ankle/Foot Palpation 3/4 TTP of peroneals, cuboid, 5th MTP Overall Comment ATF TTP positive ROM Ankle/Foot 3 Dorsiflexion w/Knee Flexed Active Range of Motion (degrees) Ankle/Foot Plantar 20 Flexion Active Range of Motion (degrees) Ankle/Foot Eversion 3 Active Range of Motion (degrees) Ankle/Foot Inversion 30 Active Range of Motion (degrees) MMT Ankle Dorsiflexion 3+ Fair+ Strength Grade Ankle Plantarflexion 3+ Fair+ Strength Grade Foot Eversion 3+ Fair+ Strength Grade Foot Inversion 4- Good- Strength Grade Special Tests Talar Tilt Test Positive Left Ankle Posterior Negative Left Drawer Test Foot Compression Negative Left Test Foot Long Bone Negative Left Compression Test Foot/Heel Tap/ Negative Left Percussion Test Lower Extremity Functional Index Activities Today, do you or would you have any difficulty at all with: a.Any of your usual Quite a bit of difficulty work, housework or school activities b. Your usual Extreme difficulty or unable to perform activity hobbies, recreational or sporting activities c. Getting into or Extreme difficulty or unable to perform activity out of the bath d. Walking between Extreme difficulty or unable to perform activity rooms e. Putting on your Quite a bit of difficulty shoes or socks f. Squatting Quite a bit of difficulty g. Lifting an object Quite a bit of difficulty , like a bag of groceries from the floor h. Performing light Extreme difficulty or unable to perform activity activities around your home i. Performing heavy Extreme difficulty or unable to perform activity activities around your home j. Getting into or Quite a bit of difficulty out of a car k. Walking 2 blocks Extreme difficulty or unable to perform activity l. Walking a mile Extreme difficulty or unable to perform activity m. Going up or down Extreme difficulty or unable to perform activity 10 stairs (about 1 flight of stairs) n. Standing for 1 Extreme difficulty or unable to perform activity hour o. Sitting for 1 Quite a bit of difficulty hour p. Running on even Extreme difficulty or unable to perform activity ground q. Running on uneven Extreme difficulty or unable to perform activity ground r. Making sharp Extreme difficulty or unable to perform activity turns while running fast s. Hopping Extreme difficulty or unable to perform activity t. Rolling over in Quite a bit of difficulty bed LEFI Score Lower Extremity 7 Functional Index Score Miscellaneous Dx PT Eval Objective Objective Observation of L foot: hammer toe of 2nd digit, mild hallux valgus, pocket of fluid of the lateral malleoli, bony formation of the dorsum and lateral aspect of the foot Edema: malleoli circumference- 28.5cm, figure 8- 64cm Pedal pulses intact Outpatient Therapy Assessment Impairments Problems/ Palpation Tenderness,Impaired Range of Motion,Impaired Impairmments Strength,Impaired Gait Pattern,Impaired Walking, Impaired Standing,Impaired Household Care,Impaired Stair Climbing,Impaired Incline Stepping,Impaired Stepping on Uneven Surface,Impaired Recreational Activities,Impaired Balance,Increased Edema,Lymphedema Present,Subjective C/O Pain,Impaired Self Care/Self Management Prognosis Rehab Potential Good Clinical Impression Consistent with Yes Diagnosis Additional details: Treat and recommend CT scan of L foot due to bony formation, edema and severity of pain PT Patient Goals PT Patient Goals PT Short Term 3 weeks: Patient Goals 1. Verbalize compliance with HEP to assist with progress. 2. Improve LEFS score to at least 17 to improve overall QOL/function. 3. Improve pain at worst to 8/10 on VAS to improve overall QOL/function. 4. Improve L ankle AROM DF & eversion to at least 5-8 to assist with gait and function. PT Corrections Identification Technician Patient 6 weeks: Goals 1. Improve L ankle AROM to WFL to assist with mobility and function. 2. Improve LLE MMT to 4-4+/5 grossly to assist with function. 3. Improve pain at worst to 6/10 on VAS to improve overall QOL/function. 4. Improve LEFS score to at least 27 to improve overall QOL/function. 5. Demonstrate non-antalgic gait to decrease fall risk. 6. Improve edema of LLE from baseline measurements to assist with pain and mobility. 7. Improve TTP of left foot complex to 0-1/4 TTP to assist with pain and mobility. Outpatient Therapy Plan of Care Treatment Plan May Include Therapeutic Exercise Yes Including Home Exercise Program Manual Therapy Yes Techniques Neuromuscular Re- Yes education Therapeutic Yes Activities to Return to Previous Functional/Work Level Gait Training Yes ADL/Self Care Yes Education Dry Needling Yes Thermal Modalities Yes Electrical Yes Stimulation Ultrasound/ Yes Phonophoresis Iontophoresis Yes Orthotics/Bracing/ Yes Splinting Vasopneumatic Yes Compression Pump Massage Yes Manual Lymphatic Yes Drainage Group Therapy for Yes Medicare Eval/Re-Eval Yes Frequency Times per week 2 Duration Number of Weeks 4-6 Addendums This patient is a No candidate for social or vocational rehab ? Patient/Guardian Yes verbally acknowledges understanding of treatment program and consents to further treatment? Patient/Guardian Yes verbally acknowledges understanding of diagnosis, prognosis and goals for treatment? Eval Complexity PT Charges 40020 - Moderate Complexity Shoulder/Elbow Eval Shoulder Objective Measurements Elbow Objective Measurements PHYSICIAN CERTIFICATION: I certify the specified therapy services for Selam Good are required, authorized, and reviewed every 30 days.
== END 2025-07-07 23:59 | disposition home or self-care (01) ==
LOC: PT 16:00
PROVIDERS: Visit Provider Nurse Practitioner
DX: M76.72 Peroneal tendinitis, left leg (principal); M72.2 Plantar fascial fibromatosis; M25.562 Pain in left knee
CPT/HCPCS: 97162

== ENCOUNTER 2025-07-08 07:58 | Day surgery (SDC) | payer BC, MEDICARE, SELFPAY ==
[2025-07-06 08:40] VITALS: BMI 51.5
[2025-07-08 08:27] VITALS: BP 158/76; PULSE 70; RESP 16; TEMP 36.2; O2SAT 97; BMI 51.5
--- NOTE | 2025-07-08 08:32 | EXP.GEN.HP ---
HPI HPI HPI: Patient is a 60-year-old female with history of bipolar disorder, obstructive sleep apnea, hyperlipidemia, coronary artery disease, chronic kidney disease, GERD, BMI > 50 who presents for screening colonoscopy. She has a family history of colon cancer with her father being diagnosed with colon cancer at age 62 and her paternal grandmother at age 52. She states that her paternal nephew of colon cancer diagnosed at age 32. She had a colonoscopy with Dr. Donohue 2016 at which time she had advanced adenomatous polyp removed. She had a colonoscopy with Dr. Sow 2017 at which time she had tubular adenoma in the transverse colon removed. She had a colonoscopy on 06/30/[address] Sow at which time she had left-sided diverticulosis and a descending colon tubular adenoma. Recommendations were for colonoscopy 5 years due to polyp and family history. [facility] Disclaimer: The information contained in this section may have been updated after the patient was seen, as this information can be updated by other users. Medical History History of colon polyps Peroneal tendinitis of left lower extremity Atypical chest pain Acute chest wall pain Blunt abdominal trauma Rib contusion Arrhythmia Kidney stone Sleep apnea Stage 3 chronic kidney disease This is somewhat puzzling presentation. Patient has GFR is at range anywhere from 49-65 over the last 5 years. From October to October 2022 her values were 65. The most recent value in July was 57. At most based on the last year of values this patient would be a renal failure 3A. However it was 65 she is mildly decreased and would be a stage II. She is seeing a specialist apparently I do not have those records. I would just follow for now but will get a complete metabolic panel today to further evaluate. Anxiety and depression Osteoarthritis of right knee GERD (gastroesophageal reflux disease) Bipolar disorder Sleep apnea Hyperlipidemia (~10/22/17) Surgical History S/P total knee arthroplasty Right knee TKA History of total right knee replacement History of esophagogastroduodenoscopy History of colonoscopy History of hysterectomy Hx of cholecystectomy History of surgery TUMOR REMOVED FROM ABDOMEN Family History Other Colon cancer Family history of cancer Rectal cancer Stomach cancer Social History Smoking Status: Never smoker alcohol intake: never substance use type: marijuana current occupational status: unemployed and disabled Travel in the last 8 weeks?: None household members: significant other housing: house caffeine: No Have you lived/traveled outside [place] in past 30 days?: No Contact w/someone who lives/traveled outside [place] past 30 days?: No Exposure to someone with infectious disease in past 14 days?: No Do you have a fever (greater than 100.4 F or 38 C)?: No Have you tested positive for COVID-19?: No Exposed to someone with COVID-19 in past 14 days?: No Do you have a sore throat?: No Do you have a cough?: No Do you have any weakness?: No Are you experiencing any nausea/vomitting?: No Do you have any diarrhea?: No Are you experiencing any unusual bleeding?: No Do you have any muscle aches/pain?: No Do you have any abdominal pain?: No Are you experiencing loss of taste or smell?: No Other Medical History Have you received the Flu Vaccine for this season: No Have you received the Pneumonia Vaccine: No Meds Home Medications and Allergies Home Medications ?Medication ?Instructions ?Recorded ?Confirmed ?Type buspirone 15 mg tablet 30 mg PO BID Anxiety 06/08/20 07/08/25 History lamotrigine 150 mg tablet 150 mg PO DAILY mood 10/22/23 07/08/25 History (Lamictal) venlafaxine 100 mg tablet 100 mg PO DAILY Depression 10/22/23 07/08/25 History atorvastatin 10 mg tablet See Rx Instructions .Route 09/08/24 07/08/25 Rx .COMPLEX #90 tabs lithium carbonate 300 mg 300 mg PO ONCE 11/02/24 07/08/25 History tablet,extended release metoprolol succinate 25 mg 25 mg PO DAILY #30 tabs 11/02/24 07/08/25 Rx tablet,extended release 24 hr (Toprol XL) nitroglycerin 0.4 mg sublingual 0.4 mg sublingual Q5M PRN chest 12/06/24 07/08/25 Rx tablet (Nitrostat) pain #20 tabs aspirin 81 mg tablet,delayed 81 mg PO DAILY #30 tabs 01/17/25 07/08/25 Rx release (Adult Aspirin Regimen) ciclopirox 8 % topical solution 1 applic topical DAILY toenail 05/11/25 07/08/25 Rx fungus 3 months #6.6 mL cariprazine 3 mg capsule (Vraylar) 3 mg PO DAILY 05/17/25 07/08/25 History sodium,potassium,mag sulfates 17.5 See Rx Instructions PO .COMPLEX 05/18/25 07/08/25 Rx gram-3.13 gram-1.6 gram oral soln #354 mL (Suprep Bowel Prep Kit) famotidine 20 mg tablet 20 mg PO DAILY 06/06/25 07/08/25 History metformin 500 mg tablet,extended 500 mg PO DAILY 06/06/25 07/08/25 History release 24 hr pantoprazole 40 mg tablet,delayed 40 mg PO DAILY 06/06/25 07/08/25 History release clonazepam 2 mg tablet 2 mg PO HS 07/06/25 07/08/25 History tirzepatide (weight loss) 2.5 2.5 mg (0.5 mL) SQ WEEKLY #2 mL 07/06/25 07/08/25 Rx mg/0.5 mL subcutaneous pen injector (Zepbound) New Prescriptions to Start Prescriptions: Allergies Allergy/AdvReac Type Severity Reaction Status Date / Time ibuprofen (IBUPROFEN) Allergy Mild I-RASH/ITCH Verified 07/08/25 08:36 ING Exam Data for Last 24 hours I & O for Last 24 hours: Intake & Output 07/05/25 07/06/25 07/07/25 07/08/25 11:59 11:59 11:59 11:59 Weight 300 lb Constitutional Constitutional: no acute distress *Routine HEENT Exam Head: Present normocephalic Eye: Present EOMI and PERRL ENT: Present mucous membranes moist *Routine Neck Exam Neck: Present supple; Absent lymphadenopathy *Routine Respiratory Exam Respiratory: Present CTA bilaterally *Routine Cardiovascular Exam Cardiovascular: Present RRR *Routine Abdominal Exam Abdominal: Present soft and normoactive bowel sounds; Absent tenderness *Routine Rectal Exam Rectal:: deferred *Routine Genitalia Exam Genitalia:: deferred *Routine Extremities Exam Extremities: Absent cyanosis, clubbing or edema *Routine Skin Exam Skin: Present warm; Absent rash *Routine Neurological Exam Neurological: Present alert and oriented X3 Assessment and Plan *Assessment and plan (1) Tubular adenoma of colon: Status: Acute Category: Medical Code(s): D12.6 - Benign neoplasm of colon, unspecified Plan Colonoscopy
[2025-07-08] MEDS: LACTATED RINGERS 1000ML 1,000 ML 50 ML IV (08:40)
--- NOTE | 2025-07-08 09:23 | P.PNANES_ITS ---
[facility] Disclaimer: The information contained in this section may have been updated after the patient was seen, as this information can be updated by other users. Medical History History of colon polyps Peroneal tendinitis of left lower extremity Atypical chest pain Acute chest wall pain Blunt abdominal trauma Rib contusion Arrhythmia Kidney stone Sleep apnea Stage 3 chronic kidney disease This is somewhat puzzling presentation. Patient has GFR is at range anywhere from 49-65 over the last 5 years. From October to October 2022 her values were 65. The most recent value in July was 57. At most based on the last year of values this patient would be a renal failure 3A. However it was 65 she is mildly decreased and would be a stage II. She is seeing a specialist apparently I do not have those records. I would just follow for now but will get a complete metabolic panel today to further evaluate. Anxiety and depression Osteoarthritis of right knee GERD (gastroesophageal reflux disease) Bipolar disorder Sleep apnea Hyperlipidemia (~10/22/17) Surgical History S/P total knee arthroplasty Right knee TKA History of total right knee replacement History of esophagogastroduodenoscopy History of colonoscopy History of hysterectomy Hx of cholecystectomy History of surgery TUMOR REMOVED FROM ABDOMEN Family History Other Colon cancer Family history of cancer Rectal cancer Stomach cancer Social History Smoking Status: Never smoker alcohol intake: never substance use type: marijuana current occupational status: unemployed and disabled Travel in the last 8 weeks?: None household members: significant other housing: house caffeine: No Have you lived/traveled outside US in past 30 days?: No Contact w/someone who lives/traveled outside US past 30 days?: No Exposure to someone with infectious disease in past 14 days?: No Do you have a fever (greater than 100.4 F or 38 C)?: No Have you tested positive for COVID-19?: No Exposed to someone with COVID-19 in past 14 days?: No Do you have a sore throat?: No Do you have a cough?: No Do you have any weakness?: No Are you experiencing any nausea/vomitting?: No Do you have any diarrhea?: No Are you experiencing any unusual bleeding?: No Do you have any muscle aches/pain?: No Do you have any abdominal pain?: No Are you experiencing loss of taste or smell?: No [facility] Anesthesia Checklist Patient Identification Patient Identification: Verbal (Name & ) Structural Data Admitted From: Home Planned Operative Procedure/s: colonoscopy Consent for Planned Operative Procedure(s) Verified: Yes NPO Status Verified Time NPO: 00:00 Additional verifications Anesthesia Reactions: No Hx Blood Transfusions: No Blood Transfusion Reaction: No Airway Assessment Mallampati Score:: Class II C-Spine Mobility Assessed: Yes TMJ Mobility Assessed: Yes Dentition: Good Dentition Neurological Assessment Level of Consciousness: Awake, Alert and Appropriate Anesthesia Plan Anesthesia Risk discussed: Yes Anesthesia Plan: Verified ASA Class: III Anesthesia Type: MAC
--- NOTE | 2025-07-08 10:49 | P.PCN_ITS ---
Procedure: Date: 07/08/25 Patient Date of :: 1965 Procedure Performed:: Total colonoscopy to cecum with polypectomy Indications:: Patient is a 60-year-old female with history of reported bipolar disorder, obstructive sleep apnea, hyperlipidemia, coronary artery disease, chronic kidney disease, GERD, BMI > 50, prediabetes, who presents for screening colonoscopy. She has a family history of colon cancer with her father being diagnosed with colon cancer at age 62 and her paternal grandmother at age 52. She states that her paternal nephew of colon cancer diagnosed at age 32. She had a colonoscopy with Dr. Donohue 2016 at which time she had advanced adenomatous polyp removed. She had a colonoscopy with Dr. Sow 2017 at which time she had tubular adenoma in the transverse colon removed. She had a colonoscopy on 06/30/[address] Sow at which time she had left-sided diverticulosis and a descending colon tubular adenoma. Recommendations were for colonoscopy 5 years due to polyp and family history. Performing Provider:: Akira Lantigua MD Referring Provider:: Deb Koenig Sedation:: MAC sedation Procedure:: Patient history was obtained and appropriate physical examination was performed. Patient's medications and allergies were reviewed. Informed consent was obtained after explaining the benefits, alternatives, and risks of the procedure including, but not limited to, bleeding, perforation, missed lesions, and adverse reaction to anesthesia medications. Patient was transported to endoscopy procedure room. Patient was connected to monitoring devices. Throughout the procedure the patient's blood pressure, pulse, and oxygen saturations were monitored continuously. Patient identification and planned procedure were verified by the staff. Patient was positioned in lateral decubitus position. Digital anorectal exam was performed. Variable stiffness Olympus colonoscope was inserted and advanced under direct visualization to the cecum. Adequacy of the colonic preparation was noted. The colonoscope was then slowly withdrawn while carefully examining the color, texture, anatomy, and integrity of the mucosoa circumferentially. Within the rectum retroflexion was performed. Colonoscope was then withdrawn. Impression: Colonoscope was ultimately able to be advanced to the cecum with extensive abdominal pressure. There was noted to be a possible adenomatous appearing polyp in the ascending colon just distal to the ileocecal valve. The colonoscope then spontaneously withdrew to the transverse colon. Repeated abdominal pressure was used and the colonoscope was advanced to the ascending colon. There was noted to be a relatively small but adenomatous appearing polyp removed with cold snare. It was grasped and retrieved with biopsy forceps. Col onoscope was then withdrawn through the remainder of the colon. In the sigmoid colon there is initially thought to be a tiny possible adenomatous polyp. This appeared to be more like a focal area of irregularity. However for assurance it was biopsied. There was a tiny hyperplastic appearing sigmoid polyp removed with biopsy forceps. . Findings:: Polyps as noted Recommendations:: Repeat colonoscopy pending pathology. Likely 3 years given family history and personal history of adenomatous polyps. May be best served by gastroenterology given gastroenterology performance of previous colonoscopies. If the sigmoid biopsy is adenomatous may need repeat colonoscopy sooner. Complications:: None immediately apparent Estimated blood obtained (mL): 1 Colonoscopy Component Colonoscopy Component Was a colonoscopy performed during today's procedure?: Yes Recommended follow up colonoscopy of at least 10 years?: No If no, follow up colonoscopy recommended in ___ years?: See above Reason for not recommending >/= 10 yr follow-up interval?: See above.
[2025-07-08 10:52] VITALS: BP 121/52; PULSE 74; RESP 18; TEMP 36.3; O2SAT 97
[2025-07-08 11:02] VITALS: BP 123/92; PULSE 62; RESP 18; O2SAT 97
[2025-07-08 11:12] VITALS: BP 120/59; PULSE 61; RESP 18; O2SAT 98
[2025-07-08 11:22] VITALS: BP 122/73; PULSE 71; RESP 18; O2SAT 98
== END 2025-07-08 11:26 | disposition home or self-care (01) ==
PROVIDERS: PCP Family Medicine; Visit Provider Surgery
PROC: 0DJD8ZZ Inspection of Lower Intestinal Tract, Via Natural or Artificial Opening Endoscopic (ICD-10-PCS; CPT 45380; principal; 2025-07-08 09:30)
DX: D12.2 Benign neoplasm of ascending colon (principal); K63.5 Polyp of colon; F41.8 Other specified anxiety disorders; F31.9 Bipolar disorder, unspecified; K21.9 Gastro-esophageal reflux disease without esophagitis; E78.5 Hyperlipidemia, unspecified; N18.9 Chronic kidney disease, unspecified; I25.10 Atherosclerotic heart disease of native coronary artery without angina pectoris; Z90.49 Acquired absence of other specified parts of digestive tract; Z88.6 Allergy status to analgesic agent; Z86.0101 Personal history of adenomatous and serrated colon polyps; Z79.82 Long term (current) use of aspirin; Z80.0 Family history of malignant neoplasm of digestive organs; Z79.899 Other long term (current) drug therapy; Z90.710 Acquired absence of both cervix and uterus; Z96.651 Presence of right artificial knee joint; Z56.0 Unemployment, unspecified
CPT/HCPCS: 45380; 45385; J2003; J2704; J7120

== ENCOUNTER 2025-07-14 13:38 | Emergency (ER) | payer BC, MEDICARE, SELFPAY ==
[2025-07-14 13:40] VITALS: BP 168/84; PULSE 93; RESP 16; TEMP 36.9; O2SAT 97; BMI 50.4
[2025-07-14 13:44] VITALS: BP 149/106; PULSE 103; O2SAT 98
--- NOTE | 2025-07-14 13:45 | XR_ITS ---
FINAL REPORT TECHNIQUE: 3 views left foot CLINICAL HISTORY: fall COMPARISON: 10/28/2024 FINDINGS: LEFT FOOT: Three views show no evidence of acute displaced fracture or dislocation of the visualized bony architecture. There are moderate degenerative changes in the midfoot and the hindfoot. A mild hallux valgus deformity is noted. There is an oval lucent lesion in the first metatarsal head, that may be secondary to a cyst or any erosion. Calcaneal spurs are present. IMPRESSION: Moderate degenerative changes as described, not significantly changed since the prior exam of 10/28/2024. No acute osseous abnormality. Reviewed, Interpreted and Dictated by Estrella Brooks MD Transcribed by Andreea Moss Authenticated and [facility]
--- NOTE | 2025-07-14 13:45 | XR_ITS ---
FINAL REPORT TECHNIQUE: 3 views left ankle CLINICAL HISTORY: pain COMPARISON: 09/21/2019 FINDINGS: LEFT ANKLE Three views show no evidence of acute displaced fracture or dislocation of the visualized bony architecture. There is moderate degenerative change of the ankle mortise. A moderate calcaneal spur is present. The degenerative change is overall more advanced than seen on the prior exam of 2019. IMPRESSION: Degenerative changes as described, more advanced than seen on the prior left ankle series of 2019. No acute osseous abnormality is identified. Reviewed, Interpreted and Dictated by Estrella Brooks MD Transcribed by Andreea Moss Authenticated and [facility]
[2025-07-14 13:46] VITALS: BP 168/84; PULSE 93; O2SAT 98
--- OUTSIDE RECORDS SUMMARY | 2025-07-14 13:48 | XMS_ITS | Clinical Summary ---
Author Organization Healthcare Address [facility] [place] [id number] Care Team Providers Care Alteration Inspector Name Role Phone Enzo Garcia MD Primary Care Provider + [phone] Allergies Active Allergy Reactions Criticality Noted Date [...] Td Vaccine s (1 - Tdap) 1984 [facility]-Pap Smear 1986 [facility]-Cervical Cancer Screening 1995 [facility]-HPV/Cotest 1995 CT Colonography 2010 Colonoscopy 2010 FIT-DNA 2010 FIT 2010 FOBT 2010 Sigmoidoscopy 2010 [facility]-Colorectal Cancer Screening 2010 [facility]-Pneumococcal Vaccine: 50 + Years (1 of 1 - PCV) 2015 [facility]-Zoster Vaccines (1 of 2) 2015 ADC-CSCTL-39 Vaccine (3 - season) 2025 07/07/2021, 12/02/2020 [facility]-Influenza Vaccine (#1) 05/02/202506/26, 05/16/2017 [facility]-RSV Vaccine: 60+ Years o r (1 - 1-dose 75+ series) 2040 HPV Vaccines Aged Out No longer eligi [...] patient's age to complete this topic Insurance Care Teams Alteration Inspector Relationship Specialty Start Date End Date Enzo Garcia MD [address] [place] [address] PCP - General 10/09/22
--- OUTSIDE RECORDS SUMMARY | 2025-07-14 13:48 | XMS_ITS | Continuity of Care Document ---
Author Organization 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 Name Role Phone Unavailable Primary Care Provider Unavailabl e Encounters Date Type Department Care Team Description 05/02/2022 10:43 AM EDT - 05/02/2022 11:59 PM EDT Hospital Encounter [facility] [address] [id number] Bipolar I disorder, most recent episode depressed, severe with psychotic features (HCC) Discharge Disposition: Home or Self Care 07/10/2021 Travel 04/09/2021 10:52 AM EDT - 04/09/2021 11:59 PM EDT Hospital Encounter [facility] [address] [id number] Bipolar I disorder, most recent episode depressed, severe with psychotic features (HCC) Discharge Disposition: Home or Self Care 04/09/2021 Travel 02/26/2021 10:52 AM EDT - 02/26/2021 11:59 PM EDT Hospital Encounter [facility] [address] [id number] Bipolar I disorder, most recent episode depressed, severe with psychotic features (HCC) Discharge Disposition: Home or Self Care 02/26/2021 Travel 11/20/2020 Travel 07/10/2020 Travel 04/10/2020 12:08 PM EDT - 04/10/2020 11:59 PM EDT Hospital Encounter [facility] [address] [phone] Therapeutic drug monitoring; Bipolar I disorder, most recent episode depressed, severe with psychotic features (HCC) Discharge Disposition: Home or Self Care 04/10/2020 Travel 07/13/2019 10:33 AM EST - 07/13/2019 11:59 PM EST Hospital Encounter [facility] [address] [address] Therapeutic drug monitoring Discharge Disposition: Home or Self Care 02/01/2019 3:10 PM EDT - 02/01/2019 11:59 PM EDT Hospital Encounter [facility] [address] [address] Therapeutic drug monitoring; Dyslipidemia; [place] use Discharge Disposition: Home or Self Care Allergies No known active allergies Medications busPIRone (BUSPAR) 15 mg Oral TabletIndicati ons:Generalize d anxiety disorder TAKE TWO TABLETS BY MOUTH 2 TIMES A DAY 360 Tablet 1 03/23/20 25 Active lamoTRIgine (LAMICTAL) 150 mg Oral TabletIndicati ons:Bipolar I disorder, most recent episode depressed, severe with psychotic features (HCC) TAKE TWO TABLETS BY MOUTH EVERY MORNINGAND ONE TABLET IN THE EVENING 270 Tablet 1 03/23/20 25 Active lithium (LITHOBID) 300 mg Oral Tablet Sustained ReleaseIndicat ions:Bipolar I disorder, most recent episode depressed, severe with psychotic features (HCC) Take 1 Tablet by mouth 2 times daily. 180 Tablet 1 03/23/20 25 Active venlafaxine (EFFEXOR) 100 mg Oral TabletIndicati ons:Bipolar I disorder, most recent episode depressed, severe with psychotic features (HCC) Take 1 Tablet by mouth 3 times daily. 270 Tablet 1 03/23/20 25 Active VRAYLAR 3 mg Oral CapsuleIndicat ions:Bipolar I disorder, most recent episode depressed, severe with psychotic features (HCC) TAKE 1 CAPSULE BY MOUTH ONCE A DAY 30 Capsule 1 05/16/20 25 Active clonazePAM (KLONOPIN) 2 mg Oral TabletIndicati ons:Primary insomnia Take 1 Tablet by mouth nightly. 30 Tablet 1 06/22/20 25 Active clonazePAM (KLONOPIN) 1 mg Oral TabletIndicati ons:Primary insomnia TAKE 1 TABLET BY MOUTH AT BEDTIME 30 Tablet 1 05/16/20 25 025 Discontinued Active Problems Patient Care Coordination No te Formatting of this note migh t be different from the original. Courtney Wiseman: 05/13/18 UDS: 0 CSA: Problem Noted Date Diagnosed Date Bipolar I disorder, most rec ent episode depressed, severe with psychotic features 09/13/2019 Social History Smoking Status as of 07/14/2025 Tobacco Use Types Packs/Day Years Used Date [...] 02/01/2019 3:14 PM EDT Therapeutic drug monitoring [place] use LIPID PANEL REFLEX Routine 02/01/2019 3: 14 PM EDT Therapeutic drug monitoring Dyslipidemia BASIC METABOLIC PANEL Routine 02/01/2019 3:14 PM EDT Therapeutic drug monitoring LITHIUM LEVEL Routine 02/01/2019 3:13 PM EDT Therapeutic drug monitoring Results * LITHIUM LEVEL (05/02/2022 10:43 AM EDT) Only the most recent of6 resultswithin the time period is included. [place] Lvl 0.9 0.6 - 1.2 mmol/L 05/02/2022 5:54 PM EDT [facility] Blood VENOUS BLOOD / Unknown Venipuncture / Unknown 05/02/2022 10:43 AM EDT 05/02/2022 10:43 AM EDT us Larry Tl [employer] STORES DESPATCH HAND CHEMISTRY ORDERABLES Fin al Result [facility] [address] [facility] , [place] [address] * BASIC METABOLIC PANEL (04/10/2020 12:14 PM [...] - 10.4 mg/dL 04/10/2020 5:14 PM EDT [facility] Glucose Lvl 92 74 - 100 mg/dL 04/10/2020 5:14 PM EDT [facility] BUN 10 6 - 20 mg/dL 04/10/2020 5:14 PM EDT [facility] Creatinine 0.97 0.51 - 1.30 mg/dL 04/10/2020 5:14 PM EDT [facility] [employer], [facility] GFR Afr Am 77 >=60 mL/min/1.7 3 m2 04/10/2020 5:14 PM EDT [facility] GFR Non Afr Am 66 >=60 mL/min/1.7 3 m2 04/10/2020 5:14 PM EDT [facility] Comment: This estimated GFR was calculated [...] 04/10/2020 12:15 PM EDT us Larry Valdez STOR[employer] HAND CHEMISTRY ORDERABLES Fin al Result [facility] [employer], [facility] [address] [facility] , [address] [place] [id number] [facility] [address] [place], [place] [id number] * (ABNORMAL) LIPID PANEL REFLEX (02/01/2019 3:14 PM EDT) Cholesterol 219(H) <=200 mg/dL 02/01/2019 5:30 PM EDT [facility] [employer], [facility] Comment: < 200 Desirable 200 - 239 Borderline High >= 240 High Triglyceride 151(H) <=150 mg/dL 02/01/2019 5:30 PM EDT [facility] [employer], [facility] Comment: < 150 Normal 150 - 199 Borderline High 200 - 499 High >= 500 Very High HDL 50 >=40 mg/dL 02/01/2019 5:30 PM EDT [facility] [employer], [facility] Comment: > 60 Optimal 40 - 60 Acceptable < 40 Low LDL Calculated 139(H) <=100 mg/dL 02/01/2019 5:30 PM EDT [facility] [employer] Non-HDL-C Calculated 169(H) <=129 mg/dL 02/01/2019 5:30 PM EDT [facility] [employer] Comment: <130 Desirable 130-159 Above Desirable 160-189 Borderline High 190-219 High >= 220 Very High Fasting Specimen? Yes None 019 5:30 PM EDT [facility] [employer] Blood VENOUS BLOOD / Unknown Venipuncture / Unknown 02/01/2019 3:14 PM EDT 02/01/2019 3:14 PM EDT Larry Valdez [employer] HAND CHEMISTRY ORDERABLES Fin al Result Performing Organization Address City/[facility]/ZIP Co de Phone Number [facility] [employer] [address] [facility] , [place] [address] * THYROID STIMULATING HORMONE (02/01/2019 3:14 PM EDT) [facility] TSH 2.310 0.270 - 4.200 mcIU/mL 02/01/2019 5:30 PM EDT [facility] [employer] Blood VENOUS BLOOD / Unknown Venipuncture / Unknown 02/01/2019 3:14 PM EDT 02/01/2019 3:14 PM EDT Narrative [facility] [employer] - 02/01/2019 5:30 PM EDT Ingestion of megan doses of biotin (>5 mg/day) taken within 8 hours of drawing blood sample can interfere with this immunoassay test. Larry Valdez STOR[employer] DESPATCH HAND CHEMISTRY ORDERABLES Fin al Result Performing Organization Address [facility]/ZIP Co de Phone Number [facility] [employer] [facility] [address] [facility] , [place] [address] Visit Diagnoses Diagnosis Start Date Therapeutic drug monitoring Encounter for therapeutic drug monitoring 02/01/2019 Dyslipidemia Other and unspecified hyperlipidemia 02/01/2019 [place] use Encounter for long-term (current) use of [...]
--- NOTE | 2025-07-14 13:50 | ED_ITS ---
<Statement entered by Vidhi Moseley MD - 07/14/25 15:35> I was consulted by the GWEN, and we discussed the complexity of the problems being addressed. I approved the treatment and management plan for this patient's care in the emergency department, thus performing a substantive portion of the medical decision making. Vidhi Moseley MD, PAPA, FACEP Discharge Plan Disposition Patient Disposition: Home, Self-Care Prescriptions Prescriptions: No Action lamotrigine [Lamictal] 150 mg tablet 150 mg PO DAILY Rx Instructions: take 2 tabs po qam & 1 tab every evening venlafaxine 100 mg tablet 100 mg PO DAILY lithium carbonate 300 mg tablet extended release 300 mg PO ONCE buspirone 15 mg tablet 30 mg PO BID Rx Instructions: take 2 tabs po bid ciclopirox 8 % solution 1 applic topical DAILY 90 Days Qty: 6.6 3RF Rx Instructions: apply over previous coat; remove with alcohol every 7 days and file down nail Vraylar 3 mg capsule 3 mg PO DAILY clonazepam 2 mg tablet 2 mg PO HS Zepbound 2.5 mg/0.5 mL pen injector 2.5 mg SQ WEEKLY Qty: 2 0RF Rx Instructions: 2.5 mg subcutaneous weekly x 4 weeks atorvastatin 10 mg tablet See Rx Instructions .ROUTE .COMPLEX Qty: 90 3RF Dose Instruction: TAKE ONE TABLET BY MOUTH ONCE A DAY Rx Instructions: TAKE ONE TABLET BY MOUTH ONCE A DAY nitroglycerin [Nitrostat] 0.4 mg tablet, sublingual 0.4 mg sublingual Q5M PRN (Reason: chest pain) Qty: 20 3RF Rx Instructions: do not exceed 3 doses per episode aspirin [Adult Aspirin Regimen] 81 mg tablet,delayed release (DR/EC) 81 mg PO DAILY Qty: 30 11RF sodium,potassium,mag sulfates [Suprep Bowel Prep Kit] 17.5-3.13-1.6 gram recon soln See Rx Instructions PO .COMPLEX Qty: 354 0RF Rx Instructions: DILUTE; drink full amount early evening before AND next morning at least 2 hr before procedure; follow w 960 mL water PO metoprolol succinate [Toprol XL] 25 mg tablet extended release 24 hr 25 mg PO DAILY Qty: 30 5RF famotidine 20 mg tablet 20 mg PO DAILY Rx Instructions: TAKE ONE TABLET BY MOUTH ONCE A DAY pantoprazole 40 mg tablet,delayed release (DR/EC) 40 mg PO DAILY Rx Instructions: TAKE ONE TABLET BY MOUTH ONCE A DAY metformin 500 mg tablet extended release 24 hr 500 mg PO DAILY Rx Instructions: TAKE ONE TABLET BY MOUTH ONCE A DAY Referrals Follow up/Referrals: Deb Koenig APRN [Primary Care Provider, Family Practice] - See instructions Arnaldo Leon DO [Staff Physician, Orthopedics] - See instructions Activity Restrictions/Add. Instructions Additional Instructions/Restrictions: Ice, elevate, use walking boot and rest your foot. May take Tylenol for pain if needed. Please contact your PCP for further imaging and treatment if needed. Clinical Impressions Clinical Impression: Strain of ankle and foot Foot pain Qualifiers: Laterality: bilateral Qualified Code(s): M79.671 - Pain in right foot Instructions Patient Instructions: DI for Ankle Pain, DI for Foot Pain Print Language Print Language: Greenlandic Discharge ED Provider: Vidhi Moseley General Adult HPI General Chief complaint: PAIN Stated complaint: AO , fell, inj left foot Time Seen by Provider: 07/14/25 13:41 History of Present Illness HPI narrative: 60-year-old female presents to the ED for complaint of fall within the last couple of days. She fell sideways off some concrete and hurt the bottom of the side of her left foot. She says it hurts pretty bad. States that it hurts more on the lateral side where it is bruised. It is obviously swollen on the lateral side of her foot. She did have it wrapped. No other injury noted. Related Data Home Medications ?Medication ?Instructions ?Recorded ?Confirmed buspirone 15 mg tablet 30 mg PO BID Anxiety 0 07/08/25 lamotrigine 150 mg tablet 150 mg PO DAILY mood 4 07/08/25 (Lamictal) venlafaxine 100 mg tablet 100 mg PO DAILY Depression 0 10/22/23 07/08/25 lithium carbonate 300 mg 300 mg PO ONCE 11/02/2403/25 tablet,extended release cariprazine 3 mg capsule (Vraylar) 3 mg PO DAILY 05/1707/08/25 famotidine 20 mg tablet 20 mg PO DAILY 06/06/2503/25 metformin 500 mg tablet,extended 500 mg PO DAILY 06/0607/08/25 release 24 hr pantoprazole 40 mg tablet,delayed 40 mg PO DAILY 06/0607/08/25 release clonazepam 2 mg tablet 2 mg PO HS 07/06/25 07/08/25 Previous Rx's ?Medication ?Instructions ?Recorded atorvastatin 10 mg tablet See Rx Instructions .Route 0 09/08/24 .COMPLEX #90 tabs nitroglycerin 0.4 mg sublingual 0.4 mg sublingual Q5M PRN chest 12/06/24 tablet (Nitrostat) pain #20 tabs aspirin 81 mg tablet,delayed 81 mg PO DAILY #30 tabs 0 01/17/25 release (Adult Aspirin Regimen) ciclopirox 8 % topical solution 1 applic topical DAILY toenail 05/11/25 fungus 3 months #6.6 mL sodium,potassium,mag sulfates 17.5 See Rx Instructions PO .COMPLEX 05/18/25 gram-3.13 gram-1.6 gram oral soln #354 mL (Suprep Bowel Prep Kit) tirzepatide (weight loss) 2.5 2.5 mg (0.5 mL) SQ WEEKL Y #2 mL 07/06/25 mg/0.5 mL subcutaneous pen injector (Zepbound) metoprolol succinate 25 mg 25 mg PO DAILY #30 tabs 07/26 tablet,extended release 24 hr (Toprol XL) Allergies Allergy/AdvReac Type Severity Reaction Status Date / Time ibuprofen (IBUPROFEN) Allergy Mild I-RASH/ITCH Verified 07/08/25 08:36 [facility] Disclaimer: The information contained in this section may have been updated after the patient was seen, as this information can be updated by other users. Medical History History of colon polyps Peroneal tendinitis of left lower extremity Atypical chest pain Acute chest wall pain Blunt abdominal trauma Rib contusion Arrhythmia Kidney stone Sleep apnea Stage 3 chronic kidney disease This is somewhat puzzling presentation. Patient has GFR is at range anywhere from 49-65 over the last 5 years. From October to October 2022 her values were 65. The most recent value in July was 57. At most based on the last year of values this patient would be a renal failure 3A. However it was 65 she is mildly decreased and would be a stage II. She is seeing a specialist apparently I do not have those records. I would just follow for now but will get a complete metabolic panel today to further evaluate. Anxiety and depression Osteoarthritis of right knee GERD (gastroesophageal reflux disease) Bipolar disorder Sleep apnea Hyperlipidemia (~10/22/17) Surgical History S/P total knee arthroplasty Right knee TKA History of total right knee replacement History of esophagogastroduodenoscopy History of colonoscopy History of hysterectomy Hx of cholecystectomy History of surgery TUMOR REMOVED FROM ABDOMEN Family History Other Colon cancer Family history of cancer Rectal cancer Stomach cancer Social History Smoking Status: Never smoker alcohol intake: never substance use type: marijuana current occupational status: unemployed and disabled Travel in the last 8 weeks?: None household members: significant other housing: house caffeine: No Have you lived/traveled outside [place] in past 30 days?: No Contact w/someone who lives/traveled outside [place] past 30 days?: No Exposure to someone with infectious disease in past 14 days?: No Do you have a fever (greater than 100.4 F or 38 C)?: No Have you tested positive for COVID-19?: No Exposed to someone with COVID-19 in past 14 days?: No Do you have a sore throat?: No Do you have a cough?: No Do you have any weakness?: No Do you have any diarrhea?: No Are you experiencing any unusual bleeding?: No Do you have any muscle aches/pain?: No Do you have any abdominal pain?: No Are you experiencing loss of taste or smell?: No Other Medical History Have you received the Flu Vaccine for this season: No Have you received the Pneumonia Vaccine: No ROS Obtained: Yes Systems reviewed as appropriate & no additional complaints except as documented Constitutional Constitutional: Reports as per HPI Physical Exam General General appearance: alert Head Head exam: normocephalic Eye Eye exam: Present PERRL and EOMI ENT ENT exam: Present normal oropharynx and mucous membranes moist Neck Neck exam: Present full ROM and trachea midline Respiratory Respiratory exam: Present normal lung sounds bilaterally Cardiovascular Cardiovascular exam: Present regular rate, normal rhythm, normal heart sounds, +S1 and +S2 Extremities Exam Extremities exam: Present tenderness (Lateral side of left foot), normal capillary refill and edema Neurological Exam Neurological exam: Present alert and oriented X3 Skin Skin exam: Present warm and dry Medical Decision Making Medical Records Screening: Per USPSTF and CDC recommendations, given the prevalence of disease in our region, it is our hospital?s policy to screen for HIV and viral Hepatitis for all patients aged 18 and over and those with ongoing risk factors. Bowen Inquiry Pt receiving controlled substance: No Bowen was queried for this patient: No Vital Signs: 07/14/25 13:40 07/14/25 13:40 07/14/25 13:44 Temperature 98.5 F 98.5 F Temperature Source Oral Oral Pulse Rate 93 H 103 H Pulse Rate [Right] 93 H Respiratory Rate 16 16 Blood Pressure 168/84 H 149/106 H Blood Pressure [Right Arm] 168/84 H Blood Pressure Mean [Right Arm] 112 Blood Pressure Source Automatic Cuff Blood Pressure Source [Right Arm] Automatic Cuff Blood Pressure Position Supine Blood Pressure Position [Right Arm] Supine 02 Sat by Pulse Oximetry 97 97 98 Oxygen Delivery Method Room Air Room Air 07/14/25 13:46 07/14/25 14:04 07/14/25 14:30 Temperature Temperature Source Pulse Rate 93 H 90 78 Pulse Rate [Right] Respiratory Rate Blood Pressure 168/84 H 141/86 H 133/71 Blood Pressure [Right Arm] Blood Pressure Mean [Right Arm] Blood Pressure Source Blood Pressure Source [Right Arm] Blood Pressure Position Blood Pressure Position [Right Arm] 02 Sat by Pulse Oximetry 98 96 97 Oxygen Delivery Method Orders (Tests/Meds): ED MEDICATIONS Discontinued Medications Generic Name Dose Route Start Last Admin Trade Name Freq PRN Reason Stop Dose Admin Hydrocodone Bitart/Acetaminophen 2 tab 07/14/25 13:49 07/14/25 14:03 Hydrocodone/Apap 5/325 Mg Tablet PO 07/14/25 13:50 2 tab ONCE ONE Administration ORDERS Category Date Time Status Ankle XR - Left minimum 3 Views [XR ankle LT min 3V] Exams 07/14/25 13:45 Completed Stat Foot XR left minimum 3 views [XR foot LT min 3V] Stat Exams 07/14/25 13:45 Completed HIV Combo Stat Lab 07/14/25 14:06 Ordered Hepatitis C Ab Qual. W/ RFX Stat Lab 07/14/25 14:06 Ordered Medical Decision Narrative: patient is a 60-year-old female presenting to the emergency department for evaluation of left foot pain after a trip over a concrete. Patient is hemodynamically stable and nontoxic-appearing upon arrival, afebrile. Differential diagnosis includes foot sprain or strain versus fracture. Workup will be conducted with specific imaging. Initial inventions include analgesics. Nursing staff notified me that patient said she had a homicidal ideation 2 weeks ago. She did not clarify so patient went to radiology she will clarify when she returns. Patient x-rays were negative for acute fractures. Patient will be placed in a walking boot for comfort. Patient will be given Dr. Leon's information. We discussed calling Dr. Leon or her PCP for further workup and management if the pain persist or does not improve. Patient safe for discharge home. Critical Care Critical Care Time Critical Care Time: No
[2025-07-14] MEDS: HYDROCODONE/APAP 5/325 MG TABLET 2 TAB PO (14:03)
[2025-07-14 14:04] VITALS: BP 141/86; PULSE 90; O2SAT 96
[2025-07-14 14:30] VITALS: BP 133/71; PULSE 78; O2SAT 97
[2025-07-14 15:41] VITALS: BP 133/71; PULSE 78; RESP 18; TEMP 36.9; O2SAT 97
== END 2025-07-14 15:42 | disposition home or self-care (01) ==
PROVIDERS: Emergency Provider Student in an Organized Health Care Education/Training Program; PCP Family Medicine
DX: S96.919A Strain of unspecified muscle and tendon at ankle and foot level, unspecified foot, initial encounter (principal); E78.5 Hyperlipidemia, unspecified; W19.XXXA Unspecified fall, initial encounter
CPT/HCPCS: 73610; 73630; 99284

== ENCOUNTER 2025-08-08 10:14 | Outpatient (CLI) | payer BC, MEDICARE, SELFPAY ==
--- NOTE | 2025-08-08 10:15 | XR_ITS ---
FINAL REPORT CLINICAL HISTORY: left knee pain FINDINGS: LEFT KNEE Three views were obtained. There is no fracture or dislocation. There is moderate narrowing of the medial compartment joint space. There are small osteophytes at the medial joint margin. There is also small osteophyte along the undersurface of the patella. No soft tissue abnormality is identified. IMPRESSION: Osteoarthritis. Reviewed, Interpreted and Dictated by Esteban Gold MD Transcribed by Estefani Molina Authenticated and . [facility]
== END 2025-08-08 23:59 | disposition home or self-care (01) ==
LOC: RAD 10:15
PROVIDERS: PCP Family Medicine; Visit Provider Physician Assistant
DX: M17.12 Unilateral primary osteoarthritis, left knee (principal)
CPT/HCPCS: 73562